=== PATIENT | male | born 1945 | race Caucasian/White ===

== ENCOUNTER 2023-04-29 11:24 | Outpatient (OUT) | payer MEDICARE, SELFPAY ==
[2023-04-29 12:12] LABS: Anion Gap 10.6; BUN Creatinine Ratio 17.9; Calcium 9.7 mg/dL (8.5-10.1); Chloride 105 mmol/L (98-107); Estimated GFR (African America >60 (>=60); Estimated GFR (Non-African Ame 57 (>=60); Glucose 122 mg/dL (74-106); Potassium 4.6 mmol/L (3.5-5.1); Sodium 140 mmol/L (136-145)
[2023-04-29 12:17] LABS: Basophils Percent Auto 0.4 % (0.2-2.0); Eosinophils Absolute Auto 0.1 10^3/uL (0.0-0.7); Eosinophils Percent Auto 1.5 % (0.9-7.0); Hematocrit 45.7 % (42.0-54.0); Hemoglobin 14.8 g/dL (14.0-18.0); Immature Granulocytes Abs Auto 0.01 10^3/uL (0.00-0.03); Immature Granulocytes Pct Auto 0.2 % (0.0-0.5); Lymphocytes Absolute Auto 1.2 10^3/uL (1.2-3.8); Lymphocytes Percent Auto 25.1 % (20.5-60.0); Mean Corpuscular HGB Conc 32.4 g/dL (29.9-35.2); Mean Corpuscular Hemoglobin 31.6 pg (25.9-34.0); Mean Corpuscular Volume 97.4 fL (80.0-94.0); Monocytes Absolute Auto 0.4 10^3/uL (0.3-0.8); Monocytes Percent Auto 7.6 % (1.7-12.0); Neutrophils Percent Auto 65.2 % (43.0-75.0); Platelet Count 135 10^3/uL (150-450); Red Blood Count 4.69 10^6/uL (4.70-6.10); White Blood Count 4.6 10^3/uL (4.0-11.0)
[2023-04-29 12:48] LABS: INR 1.67; Prothrombin Time 17.2 sec (9.0-11.6)
== END 2023-04-29 11:25 ==
LOC: LAB 11:29
PROVIDERS: Nurse Practitioner; PCP Internal Medicine
DX: I25.5 Ischemic cardiomyopathy (principal)
CPT/HCPCS: 36415; 80048; 85025; 85610

== ENCOUNTER 2023-05-14 10:01 | Outpatient (OUT) | payer MEDICARE, SELFPAY ==
--- NOTE | 2023-05-14 10:10 | XR_ITS ---
The [address] [address] Patient Name: GUS DEL CID MRN: [id number] date: 1945 Sex: M Assigned Patient Location: [facility] Current Patient Location: [facility] Accession/Order Number: [id number] Exam Date: 05/14/2023 10:15 Report Date: 05/14/2023 11:01 At the request of: DUNIA GILLILAND Procedure: XR chest 2V EXAM: XR chest 2V HISTORY: Cardiac Pacemaker In Situ Z95.0 COMPARISON: None. TECHNIQUE: PA and lateral views of the chest. FINDINGS: The cardiomediastinal silhouette is normal. Left-sided cardiac pacemaker with atrial and ventricular leads. No focal consolidation is identified. There is no pneumothorax. No pleural effusion is noted. The osseous structures are intact. IMPRESSION: No acute cardiopulmonary process. Electronically authenticated by: LATONIA STANTON Date: 05/14/2023 11:01
== END 2023-05-14 10:02 | disposition home or self-care (01) ==
LOC: RAD 10:04
PROVIDERS: PCP Internal Medicine; Visit Provider Internal Medicine Cardiovascular Disease
DX: Z95.0 Presence of cardiac pacemaker (principal)
CPT/HCPCS: 71046

== ENCOUNTER 2023-07-06 09:01 | Outpatient (OUT) | payer MEDICARE, SELFPAY ==
[2023-07-06 09:31] LABS: Basophils Percent Auto 0.4 % (0.2-2.0); Eosinophils Absolute Auto 0.1 10^3/uL (0.0-0.7); Eosinophils Percent Auto 2.1 % (0.9-7.0); Hematocrit 43.8 % (42.0-54.0); Hemoglobin 14.1 g/dL (14.0-18.0); Immature Granulocytes Abs Auto 0.01 10^3/uL (0.00-0.03); Immature Granulocytes Pct Auto 0.2 % (0.0-0.5); Lymphocytes Absolute Auto 1.3 10^3/uL (1.2-3.8); Lymphocytes Percent Auto 25.3 % (20.5-60.0); Mean Corpuscular HGB Conc 32.2 g/dL (29.9-35.2); Mean Corpuscular Hemoglobin 30.9 pg (25.9-34.0); Mean Corpuscular Volume 96.1 fL (80.0-94.0); Mean Platelet Volume 10.9 fL (9.5-13.5); Monocytes Absolute Auto 0.4 10^3/uL (0.3-0.8); Neutrophils Absolute Auto 3.4 10^3/uL (1.4-6.5); Platelet Count 144 10^3/uL (150-450); Red Blood Count 4.56 10^6/uL (4.70-6.10); Red Cell Distribution Width 13.6 % (11.0-15.0); White Blood Count 5.2 10^3/uL (4.0-11.0)
[2023-07-06 10:07] LABS: Anion Gap 11.4; BUN Creatinine Ratio 18.9; Calcium 10.2 mg/dL (8.5-10.1); Carbon Dioxide 27.1 mmol/L (21.0-32.0); Chloride 102 mmol/L (98-107); Chol HDL Ratio 2.9; Cholesterol 123 mg/dL (<=200); Estimated GFR (African America >60 (>=60); Estimated GFR (Non-African Ame 57 (>=60); Glucose 119 mg/dL (74-106); HDL Cholesterol 42 mg/dL (40-60); LDL Cholesterol Calculated 62.6 mg/dL; Potassium 4.5 mmol/L (3.5-5.1); Sodium 136 mmol/L (136-145); Triglycerides 92 mg/dL (<=150); VLDL CHOLESTEROL 18.4 mg/dL
== END 2023-07-06 09:02 | disposition home or self-care (01) ==
PROVIDERS: PCP Internal Medicine; Visit Provider Internal Medicine Interventional Cardiology
DX: I50.22 Chronic systolic (congestive) heart failure (principal); I25.10 Atherosclerotic heart disease of native coronary artery without angina pectoris
CPT/HCPCS: 36415; 80048; 80061; 85025

== ENCOUNTER 2023-12-14 12:46 | Outpatient (OUT) | payer MEDICARE, SELFPAY ==
--- NOTE | 2023-12-14 13:00 | CA_ITS ---
Patient Name: GUS KUHN MR#: [id number] : 1945 Exam Date: 12/14/2023 Ordering Doctor: NEGAR MEHTA CNP ECHOCARDIOGRAM REPORT PROCEDURE: CA ECHO DOPPLER COMPLETE INDICATIONS: Chronic systolic heart failure, CABGx3, PA, stents, hypertension, diabetes, pacemaker-deactivated COMPARISON: None. DESCRIPTION: COMPLETE ECHOCARDIOGRAM Real-time transthoracic echocardiography with 2D, M-mode, spectral and color flow Doppler performed. QUALITY: Technical quality was good. 72 , 193#, BSA 2.1 m2 LEFT VENTRICLE: Normal chamber size. Thickened septal wall. There is hypokinesis of the basal and mid inferior and inferolateral rome. Systolic function is mildly reduced. LV EF: Estimated left ventricular ejection fraction, (40-45%). DIASTOLIC: Grade III diastolic dysfunction. ATRIAL SEPTUM: Visually appears intact. LEFT ATRIUM: Severe dilatation. RIGHT ATRIUM: Moderate dilatation. RIGHT VENTRICLE: Mild dilatation. Normal right ventricular systolic function. TRICUSPID VALVE: Normal mobility and thickness. No stenosis with mild to moderate regurgitation. Doppler studies reveal mildly (35-45) elevated right sided pressures. RVSP 37 mmHg MITRAL VALVE: Normal mobility and thickness. No evidence of mitral valve stenosis. Mild mitral annular calcification. Mild mitral regurgitation. AORTIC VALVE: Normal trileaflet appearance. No visible sclerosis. Normal leaflet mobility. No evidence of aortic valve stenosis. Trivial aortic regurgitation. AORTIC ROOT: Normal diameter and appearance. PULMONIC VALVE: Normal thickness and mobility. No stenosis. Mild regurgitation. PERICARDIUM: No evidence of pericardial effusion. IVC: Collapses with inspirations. IVC is normal in size. PLEURA: CONCLUSION: 1. Left ventricular systolic function is mildly reduced with segmental wall motion abnormalities. LVEF is 40 to 45%. 2. Mildly dilated right ventricle with normal systolic function. 3. Grade 3 diastolic dysfunction. 4. Moderate to severe biatrial dilatation. 5. Mild mitral regurgitation. 6. Mild to moderate tricuspid regurgitation. 7. Mildly elevated right-sided pressures. Adult Echocardiography Procedure Report Left Ventricle LVEDD (3.7 - 5.6 cm): 5.02 cm LVESD (2.2 - 4.0 cm): 4.10 cm LVIVS thickness (0.6 - 1.2 cm): 1.60 cm LVPW thickness (0.5 - 1.0 cm): 1.00 cm e': 0.09 m/s E - e': 10.30 LVOT Max Gradient: 1.74 mm[Hg] LVOT Area (cm2): 0.66 m/s Peak Velocity (LVOT): 0.66 m/s Mean Velocity (LVOT): 0.44 m/s LVOT Diameter 2.52 cm Left Atrium LA Volume Index (2D A2C): 59.80 ml/m2 Left Atrium Systolic Dimension: 5.47 cm Mitral Valve MV E to A Ratio: 3.01 Mitral Valve A-Wave Peak Velocity: 0.29 m/s Mitral Valve E-Wave Peak Velocity: 0.88 m/s Right Ventricle Aorta AO Root Diam: 3.97 cm Ascending Ao Diam: 3.02 cm Aortic Valve AoV Area (Peak Paxton): 3.23 cm2, 3.23 cm2 AoV Area (VTI): 3.47 cm2, 3.47 cm2 Peak Velocity(Antegrade Flow): 1.02 m/s Peak Gradient(Antegrade Flow): 4.15 mm[Hg] Mean Velocity(Antegrade Flow): 0.67 m/s Mean Gradient(Antegrade Flow): 2.04 mm[Hg] Velocity Time Integral: 25.36 cm Tricuspid Valve Peak Velocity (Regurgitant Flow): 2.91 m/s, 2.71 m/s, 2.85 m/s, 2.88 m/s Pulmonic Valve Mean Gradient: 1.71 mm[Hg] Mean Velocity: 0.60 m/s Peak Velocity: 0.99 m/s, 0.88 m/s Peak Gradient: 3.12 mm[Hg], 3.92 mm[Hg] Right Atrium Right Atrium Systolic Pressure: 55.76 ml, 55.76 ml Dictated by: Yan Montero M.D. on 12/14/2023 at 17:57 Approved by: Yan Montero M.D. on 12/14/2023 at 18:02
== END 2023-12-14 12:47 | disposition home or self-care (01) ==
LOC: CARD 12:47
PROVIDERS: PCP Internal Medicine; Visit Provider Nurse Practitioner Family
DX: I50.22 Chronic systolic (congestive) heart failure (principal)
CPT/HCPCS: 93306; 93356

== ENCOUNTER 2023-12-22 09:13 | Outpatient (OUT) | payer MEDICARE, SELFPAY ==
[2023-12-22 10:12] LABS: Alanine Aminotransferase 16 U/L (16-63); Albumin Globulin Ratio 1.1; Albumin Level 3.5 g/dL (3.4-5.0); Alkaline Phosphatase 38 U/L (46-116); Anion Gap 10.5; Aspartate Amino Transferase 17 U/L (15-37); BUN Creatinine Ratio 20.3; Bilirubin Total 0.6 mg/dL (0.2-1.0); Calcium 9.7 mg/dL (8.5-10.1); Carbon Dioxide 27.5 mmol/L (21.0-32.0); Chloride 107 mmol/L (98-107); Chol HDL Ratio 2.8; Cholesterol 130 mg/dL (<=200); Estimated GFR (African America >60 (>=60); Estimated GFR (Non-African Ame 54 (>=60); Globulin 3.3 g/dL; Glucose 123 mg/dL (74-106); HDL Cholesterol 46 mg/dL (40-60); LDL Cholesterol Calculated 66.4 mg/dL; Sodium 140 mmol/L (136-145); Total Protein 6.8 g/dL (6.4-8.2); Triglycerides 88 mg/dL (<=150); VLDL CHOLESTEROL 17.6 mg/dL
[2023-12-22 10:47] LABS: Basophils Percent Auto 0.6 % (0.2-2.0); Eosinophils Absolute Auto 0.1 10^3/uL (0.0-0.7); Eosinophils Percent Auto 1.3 % (0.9-7.0); Hematocrit 47.7 % (42.0-54.0); Hemoglobin 15.2 g/dL (14.0-18.0); Immature Granulocytes Abs Auto 0.01 10^3/uL (0.00-0.03); Immature Granulocytes Pct Auto 0.2 % (0.0-0.5); Lymphocytes Absolute Auto 1.4 10^3/uL (1.2-3.8); Mean Corpuscular HGB Conc 31.9 g/dL (29.9-35.2); Mean Corpuscular Hemoglobin 30.8 pg (25.9-34.0); Mean Corpuscular Volume 96.8 fL (80.0-94.0); Mean Platelet Volume 11.8 fL (9.5-13.5); Monocytes Absolute Auto 0.4 10^3/uL (0.3-0.8); Monocytes Percent Auto 7.7 % (1.7-12.0); Neutrophils Absolute Auto 3.4 10^3/uL (1.4-6.5); Neutrophils Percent Auto 63.2 % (43.0-75.0); Platelet Count 130 10^3/uL (150-450); Red Blood Count 4.93 10^6/uL (4.70-6.10); Red Cell Distribution Width 14.2 % (11.0-15.0); White Blood Count 5.3 10^3/uL (4.0-11.0)
== END 2023-12-22 09:14 | disposition home or self-care (01) ==
LOC: LAB 09:13
PROVIDERS: PCP Internal Medicine; Visit Provider Internal Medicine Interventional Cardiology
DX: I25.10 Atherosclerotic heart disease of native coronary artery without angina pectoris (principal); I50.22 Chronic systolic (congestive) heart failure
CPT/HCPCS: 36415; 80053; 80061; 85025

== ENCOUNTER 2024-12-20 11:51 | Outpatient (OUT) | payer MEDICARE, SELFPAY ==
--- OUTSIDE RECORDS SUMMARY | 2024-12-20 11:56 | XMS_ITS | CCD ---
Author Organization [facility] Team Providers Care Green Chain Operator Name Role Phone Filiberto De Luna IP/MOSAIC TECHNICIAN-C Attending Obdulio Yao Primary Care Unavailable OBDULIO WAN Primary Care Unavailable NEGAR MEHTA Admitting Unavailable NEGAR MEHTA Attending Unavailable OBDULIO WAN Referring Unavailable SAVAGE, DR KEBEDE Admitting Unavailable SAVAGE, DR KEBEDE Attending Unavailable SAVAGE, DR KEBEDE Primary Care Unavailable SAVAGE, DR KEBEDE Consulting Unavailable DARINEBBESS, DR RAJEEV Mathias Consulting Unavailable MOUKARBEL, DR CHERY Admitting Unavailable MOUKARBEL, DR CHERY Attending Unavailable WAN, DR KEBEDE Primary Care Unavailable MOUKARBEL, DR CHERY Consulting Unavailable ABBAS, DR SANCHEZ Admitting Unavailable ABBAS, DR SANCHEZ Attending Unavailable WAN, DR KEBEDE Primary Care Unavailable ABBAS, DR SANCHEZ Consulting Unavailable ZIEBER, DR RAJEEV Mathias Consulting Unavailable ABBAS, DR SANCHEZ Admitting Unavailable ABBAS, DR SANCHEZ Attending Unavailable SAVAGE, DR KEBEDE Primary Care Unavailable ABBAS, DR SANCHEZ Consulting Unavailable TIMMIS, DR RICHARDS Admitting Unavailable TIMMIS, DR RICHARDS Attending Unavailable WAN, DR KEBEDE Primary Care Unavailable TIMMIS, DR RICHARDS Consulting Unavailable ZISILVANO, DR RAJEEV Mathias Consulting Unavailable Savage HUGHES MD, Daniel Primary Care Provider [phone] BALAJI PETER Referring Unavailable EZEQUIEL GILLILAND Attending Unavailable OBDULIO WAN II Primary Care Unavailable BALAJI PETER Referring Unavailable OBDULIO WAN II Primary Care Unavailable BALAJI PETER Attending Unavailable EZEQUIEL GILLILAND Attending Unavailable EZEQUIEL GILLILAND Referring Unavailable OBDULIO WAN II Primary Care Unavailable BALAJI PETER Referring Unavailable EZEQUIEL GILLILAND Attending Unavailable OBDULIO WAN II Primary Care Unavailable Unavailable Primary Care Provider Unavailabl e Elliot MACKEY, Filippo Unavailable [phone] ELLIOT, FILIPPO Attending Unavailable ELLIOT, FILIPPO Referring Unavailable ELLIOT, FILIPPO Referring Unavailable ELLIOT, FILIPPO Referring Unavailable ELLIOT, FILIPPO Referring Unavailable ELLIOT, FILIPPO Referring Unavailable ELLIOT, FILIPPO Referring Unavailable Obdulio Wan MD Primary Care Provider Obdulio Wan MD Unavailable [id number] [phone] Obdulio Wan MD Primary Care Provider [phone] JULIAN, MOHAMED F Attending Unavailable WAN, OBDULIO B Referring Unavailable WAN, OBDULIO B Primary Care Unavailable LAURA SALDANA T Attending Unavailable WAN, OBDULIO B Referring Unavailable WAN, OBDULIO B Primary Care Unavailable MILLER, RAHAF N Admitting Unavailable MILLER, RAHAF N Attending Unavailable ABELINO, KELIMAD M Referring Unavailable WAN, OBDULIO B Primary Care Unavailable BETH KOWALSKI Consulting Unavailable WAN, OBDULIO B Referring Unavailable WAN, OBDULIO B Primary Care Unavailable JULIAN, MOHAMED F Referring Unavailable WAN, OBDULIO B Primary Care Unavailable JULIAN, MOHAMED F Admitting Unavailable JULIAN, MOHAMED F Attending Unavailable JULIAN, MOHAMED F Referring Unavailable WAN, OBDULIO B Primary Care Unavailable WAN, OBDULIO B Attending Unavailable FLAKITO SANTOS Attending Unavailable SAVAGE OBDULIO B Attending Unavailable Wednesday FOOD SUPERVISOR, Mehreen Unavailable LAURA SALDANA Referring Unavailable WAN, OBDULIO B Primary Care Unavailable LAURA SALDANA Referring Unavailable WAN, OBDULIO B Primary Care Unavailable WAN, OBDULIO B Primary Care Unavailable OBDULIO CARLIN Attending Unavailable OBDULIO CARLIN Attending Unavailable OBDULIO CARLIN Referring Unavailable WAN, OBDULIO B Primary Care Unavailable ABELINO, KELIMAD Attending Unavailable ABELINO, AHMAD Referring Unavailable WAN, OBDULIO B Primary Care Unavailable JULIAN, MOHAMED F Attending Unavailable JULIAN, MOHAMED F Referring Unavailable WNA, OBDULIO B Primary Care Unavailable JULIAN, MOHAMED F Attending Unavailable JULIAN, MOHAMED F Referring Unavailable WAN, OBDULIO B Primary Care Unavailable WAN, OBDULIO B Primary Care Unavailable OBDULIO CARLIN Attending Unavailable WAN, OBDULIO B Primary Care Unavailable DANICA QUACH Attending Unavailable MOI PINEDA JR Attending Unavailable QUACH, DANICA Referring Unavailable WAN, OBDULIO B Primary Care Unavailable EDWIN JR, MOI K Attending Unavailable EDWIN JR, MOI K Referring Unavailable WAN, OBDULIO B Primary Care Unavailable EDWIN JR, MOI K Attending Unavailable EDWIN JR, MOI K Referring Unavailable WAN, OBDULIO B Primary Care Unavailable EDWIN JR, MOI K Attending Unavailable WAN, OBDULIO B Referring Unavailable WAN, OBDULIO B Primary Care Unavailable EDWIN JR, MOI K Referring Unavailable WAN, OBDULIO B Primary Care Unavailable EDWIN , MOI K. Admitting Unavailable MOI PINEDA JR. Attending Unavailable MOI PINEDA JR. Referring Unavailable WAN, OBDULIO B Primary Care Unavailable EDWIN JRMOI K. Attending Unavailable WAN, OBDULIO B Referring Unavailable WAN, OBDULIO B Primary Care Unavailable MIRI MONTERO Attending Unavailable EZEQUIEL GILLILAND Referring Unavailable MIRI MONTERO Attending Unavailable EZEQUIEL GILLILAND Referring Unavailable MIRI MONTERO Attending Unavailable Allergies Allergy Classification Reported Allergen(s) Allergy Type Date of Onset Reaction(s) Facility (4 sources) Dextroamphetamine Drug Allergy 09-25-[address] [facility] (1 source) Morphine Drug Allergy 07-05-[address] [facility] (1 source) Simvastatin Drug Allergy 09-25-[address] [facility] (1 source) black walnut pollen extract Drug Allergy 12-14-19 22 [facility] (10 sources) Morphine; Translations: [MORPHINE] Drug Allergy 07-05-20 20 [facility] (15 sources) atorvastatin; Translations: [ATORVASTATIN] Drug Allergy 11-02-20 14 Pain, Other, Unknown [facility] (20 sources) Morphine Drug Allergy 07-05-20 20 Unknown, Other (See Comments) [facility] (17 sources) atorvastatin Drug Allergy 11-02-20 14 Other: See Comments, Unknown, Other (See Comments) [facility] (10 sources) Dextroamphetamine; Translations: [DEXTROAMPHETAMINE] Drug Allergy 09-25-20 09 Unknown [facility] (14 sources) Simvastatin; Translations: [SIMVASTATIN] Drug Allergy 11-02-20 14 Other (See Comments) [facility] (4 sources) Simvastatin Propensity to adverse reactions 11-02-20 14 Other [facility] (1 source) Spironolactone; Translations: [SPIRONOLACTONE] Drug Allergy 05-11-[address] [facility] Medications Current Medications Medication Drug Class(es) Dates Sig (Normalized) Sig (Original) acetaminophen 500 mg oral tablet (6 sources) take 1 tablet by mouth every six hours as needed acetaminophen (Tylenol) 500 MG tablet Take 500 mg by mouth every 6 (six) hours if needed. Active amiodarone hydrochloride 200 mg oral tablet (3 sources) Antiarrhythmic End: 05-24-2023 take 1 tablet by mouth in the morning amiodarone (PACERONE) 200 mg tablet Take 1 tablet (200 mg total) by mouth in the morning. 0 Active Comment on above: Take 200 mg by mouth . atenolol 25 mg oral tablet (5 sources) beta-Adrenergic Patti Start: 04-14-2019 take 1 tablet by mouth in the morning atenolol (TENORMIN) 25 mg tablet Take 1 tablet (25 mg total) by mouth in the morning. 3 04/14/2019 Active End: 05-24-2023 take 1 tablet by mouth in the morning atenolol (TENORMIN) 50 mg tablet Take 1 tablet (50 mg total) by mouth in the morning. 0 Active Comment on above: Take 50 mg by mouth. clobetasol propionate 0.5 mg/ml topical solution (6 sources) Corticosteroid Start: 02-24-2024 clobetasol (Temovate) 0.05 % external solution Indications: Psoriasis vulgaris (CMS/HCC) Apply to scalp Apply to affected areas, up to twice a day when flared, do not use one the face, groin, or underarms, 30 day supply 50 mL 02/24/2024 Active Start: 02-24-2024 clobetasol (Te movate) 0.05 % cream Indications: Psoriasis vulgaris (CMS/HCC) Apply to affected areas, up to twice a day when flared, do not use one the face, groin, or underarms, 30 day supply 60 g 02/24/2024 Active dapagliflozin 10 mg oral tablet (10 sources) Sodium-Glucose Cotransporter 2 Inhibitor Start: 12-20-2023 End: 12-19-2024 dapagliflozin propanediol (FARXIGA) 10 mg tablet Indications: chronic heart failure , type 2 diabetes mellitus Take 1 tablet (10 mg total) by mouth in the morning. Indications: chronic heart failure, type 2 diabetes mellitus. Patient yeast inf. Cleared up. 12/20/2023 12/19/2024 Active digoxin 0.125 mg oral tablet (3 sources) Cardiac Glycoside End: 05-24-2023 take 1 tablet by mouth in the morning digoxin (LANOXIN) 125 mcg tablet Take 1 tablet (125 mcg total) by mouth in the morning. 0 Active Comment on above: Take 125 mcg by mout h. docusate sodium 100 mg oral capsule (2 sources) take 1 capsule by mouth in the morning, then take 1 capsule by mouth at bedtime docusate sodium (COLACE) 100 mg capsule Take 1 capsule (100 mg total) by mouth in the morning and 1 capsule (100 mg total) before bedtime. 0 Active eplerenone 25 mg oral tablet (10 sources) Aldosterone Antagonist Start: 05-11-2024 take 1 tablet by mouth in the morning eplerenone (Inspra) 25 MG tablet Take 25 mg by mouth in the morning. 05/11/2024 Active ezetimibe 10 mg oral tablet (3 sources) Dietary Cholesterol Absorption Inhibitor End: 05-24-2023 take 1 tablet by mouth in the morning ezetimibe (ZETIA) 10 mg tablet Take 1 tablet (10 mg total) by mouth in the morning. 0 Active Comment on above: Take 10 mg by mouth. furosemide 20 mg oral tablet (3 sources) Loop Diuretic End: 05-24-2023 take 2 tablets by mouth once daily furosemide (LASIX) 20 mg tablet Take 2 tablets (40 mg total) by mouth daily. 0 Active Comment on above: Take 40 mg by mouth. lisinopril 5 mg oral tablet (3 sources) Angiotensin Converting Enzyme Inhibitor End: 05-24-2023 take 1 tablet by mouth in the morning lisinopriL (PRINIVIL,ZESTRIL) 5 mg tablet Take 1 tablet (5 mg total) by mouth in the morning. 0 Active Comment on above: Take 5 mg by mouth. metOLazone 2.5 mg oral tablet (3 sources) Thiazide-like Diuretic End: 05-24-2023 metOLazone (ZAROXOLYN) 2.5 mg tablet Take 1 tablet (2.5 mg total) by mouth See Admin Instructions. 1 tab oral tid 30 min before lasix 0 Active Comment on above: Take 2.5 mg by mouth . Multiple Vitamin (multivitamin) capsule (4 sources) take 1 capsule by mouth in the morning Multiple Vitamin (multivitamin) capsule Take 1 capsule by mouth in the morning. Active take 1 capsule by mouth in the m orning Multiple Vitamin (multivitamin) capsule Take 1 capsule by mouth in the morning. 0 Active multivitamin capsule (2 sources) take 1 capsule by mouth in the morning multivitamin capsule Take 1 capsule by mouth in the morning. 0 Active omeprazole 40 mg delayed release oral capsule (20 sources) Proton Pump Inhibitor take 1 capsule by mouth in the morning omeprazole (PriLOSEC) 40 mg capsule Indications: gastroesophageal reflux disease Take 1 capsule (40 mg total) by mouth in the morning. Indications: gastroesophageal reflux disease. Active Comment on above: Take 1 capsule by mo [facility] once daily. perflutren lipid microspheres 1.3 mL in NaCl (PF) 0.9% 10 mL injection (DEFINITY) (6 sources) Start: 05-24-20 End: 08-22-20 24 perflutren lipid microspheres 1.3 mL in NaCl (PF) 0.9% 10 mL injection (DEFINITY) 125 ml sodium chloride 9 mg/ml prefilled syringe (6 sources) Start: 05-24-20 End: 08-22-20 24 sodium chloride 0.9 % (flush) 10 mL (BD POSIFLUSH) tamsulosin hydrochloride 0.4 mg oral capsule (1 source) alpha-Adrenergic Patti Start: 11-23-19 25 take 1 capsule by mouth once daily tamsulosin (FLOMAX) 0.4 mg capsule Take 1 capsule (0.4 mg total) by mouth nightly. 90 capsule 3 11/23/2024 Active warfarin sodium 3 mg oral tablet (20 sources) Vitamin K Antagonist Start: 10-01-20 22 warfarin (Coumadin) 3 MG tablet Take 3 mg by mouth. 1 tablet Tu, Fri. 1/2 tab other 5 days 10/01/2022 Active Start: 05-07-2018 take 1 tablet by tamy once daily in the morning warfarin (COUMADIN) 3 mg tablet Take 1 tablet (3 mg total) by mouth every morning. 05/07/2018 Active Comment on above: TAKE 1 TO 1 & 1/2 (O NE TO ONE & ONE-HALF) TABLETS BY MOUTH ONCE DAILY DIRECTED Completed/Discontinued Medications Medication Drug Class(es) Dates Sig (Normalized) Sig (Original) amLODIPine 5 mg oral tablet (19 sources) Dihydropyridine Calcium Channel Patti Start: 11-13-2022 take 1 tablet by mouth once daily in the morning amLODIPine (NORVASC) 5 mg tablet Take 5 mg by mouth every morning. 0 05/16/2023 Active Comment on above: Take 5 mg by mouth e very morning. clopidogrel 75 mg oral tablet (20 sources) [id number] Platelet Inhibitor Start: 11-13-2022 take 1 tablet by mouth once daily in the morning clopidogrel (PLAVIX) 75 mg tablet Take 75 mg by mouth every morning. 0 05/15/2023 Active Comment on above: Take 75 mg by mouth every morning. doxycycline monohydrate 100 mg oral capsule (8 sources) Tetracycline-class Drug Start: 05-14-2023 take 1 capsule by mouth twice daily at bedtime doxycycline monohydrate (MONODOX) 100 mg capsule TAKE 1 CAPSULE BY MOUTH TWICE DAILY FOR 14 DAYS (MORNING AND BEDTIME). TAKE WITH AT LEAST 8OZ OF WATER. DO NOT LIE DOWN FOR 30 MINUTES AFTER. 0 05/14/2023 Active Comment on above: TAKE 1 CAPSULE BY [facility] TWICE DAILY FOR 14 DAYS (MORNING AND BEDTIME). TAKE WITH AT LEAST 8OZ OF WATER. DO NOT LIE DOWN FOR 30 MINUTES AFTER. empagliflozin 10 mg oral tablet (9 sources) Sodium-Glucose Cotransporter 2 Inhibitor Start: 05-14-2023 JARDIANCE 10 mg tablet 24 hr metoprolol succinate 100 mg extended release oral tablet (20 sources) beta-Adrenergic Patti Start: 04-26-2023 take 100 mg by mouth twice daily metoprolol succinate ER (TOPROL XL) 100 mg Take 100 mg by mouth twice daily. 0 04/26/2023 Active Start: 09-13-2020 take 1.5 tablets by mouth every twenty-four hours at bedtime metoprolol succinate XL (TOPROL XL) 100 mg 24 hr tablet Take 1.5 tablets (150 mg total) by mouth in the morning and at bedtime. heart 09/13/2020 Active Start: 09-13-2020 take 1.5 tablets by mouth every twenty-four hours in the morning metoprolol succinate XL (TOPROL-XL) 50 mg 24 hr tablet Take 1.5 tablets (75 mg total) by mouth in the morning. 0 09/13/2020 Active Comment on above: Take 100 mg by mouth twice daily. potassium chloride 20 meq extended release oral tablet (6 sources) End: 4 take 1 tablet by mouth in the morning potassium chloride CR (K-Tab) 20 MEQ ER tablet Take 20 mEq by mouth in the morning. 07/06/2024 Discontinued Comment on above: Take 1 tablet by tamy th once daily. rosuvastatin calcium 5 mg oral tablet (20 sources) HMG-CoA Reductase Inhibitor Start: 2 take 1 tablet by mouth once daily at bedtime rosuvastatin (CRESTOR) 5 mg tablet Take 5 mg by mouth daily at bedtime. 0 02/20/2023 Active Comment on above: Take 5 mg by mouth d aily at bedtime. sacubitril 97 mg / valsartan 103 mg oral tablet (20 sources) Angiotensin 2 Receptor Patti Start: 1 take 1 tablet by mouth twice daily sacubitril-valsartan (ENTRESTO) 97-103 mg tablet Take 1 tablet twice a day by oral route for 90 days. 0 08/18/2021 Active take 1 tablet by tamy th in the morning sacubitriL-valsartan (ENTRESTO) 97-103 m g tablet Indications: chronic heart failure Take 1 tablet by mouth in the morning and 1 tablet before bedtime. Indications: chronic heart failure. Active take 1 tablet by tamy th in the morning sacubitriL-valsartan (ENTRESTO) 24-26 mg tablet Take 1 tablet by mouth in the morning and 1 tablet before bedtime. 0 Active Comment on above: Take 1 tablet twice a day by oral route for 90 days. spironolactone 25 mg oral tablet (12 sources) Aldosterone Antagonist Start: 05-16-20 23 End: 07-06-20 24 take 1 tablet by mouth once daily in the morning spironolactone (ALDACTONE) 25 mg tablet Take 25 mg by mouth every morning. 0 05/16/2023 Active Comment on above: Take 25 mg by mouth every morning. Problems Active Problems Problem Classification Problem Date Documented Date Episodic/Chronic Abdominal pain (1 source) Flank pain Onset: 08-31-2024 Episodic Acute myocardial infarction (2 sources) Myocardial infarction; Translations: [ST elevation (STEMI) myocardial infarction involving left anterior descending coronary artery] Onset: 05-24-2023 05-24-2023 Chronic Aortic; peripheral; and visceral artery aneurysms (20 sources) Abdominal aortic aneurysm without rupture; Translations: [Abdominal aortic aneurysm (AAA) without rupture, unspecified part ([facility])] Onset: 12-14-2019 11-25-2023 Chronic Cardiac dysrhythmias (18 sources) Atrial fibrillation with rapid ventricular response; Translations: [Unspecified atrial fibrillation] Onset: 06-10-2020 Resolved: 05-08-2023 05-24-2023 Chronic Chronic obstructive pulmonary disease and bronchiectasis (2 sources) Pulmonary emphysema; Translations: [Emphysema, unspecified] 07-06-2024 Chronic Coagulation and hemorrhagic disorders (2 sources) Thrombocytopenic disorder; Translations: [Thrombocytopenia, unspecified] 07-06-2024 Chronic Complication of device; implant or graft (14 sources) 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; Translations: [Atherosclerosis of unspecified type of bypass graft(s) of the extremities with intermittent claudication, left leg] Onset: 05-11-2024 05-11-2024 Chronic Conduction disorders (12 sources) Conduction disorder of the heart; Translations: [Conduction disorder, unspecified] Onset: 03-10-2012 Resolved: 05-08-2023 05-08-2023 Chronic Congestive heart failure; nonhypertensive (16 sources) Chronic systolic (congestive) heart failure; Translations: [Biventricular congestive heart failure] Onset: 01-11-2021 Chronic Coronary atherosclerosis and other heart disease (19 sources) Ischemic cardiomyopathy; Translations: [Stable angina] Onset: 06-24-2020 Chronic Coronary atherosclerosis and other heart disease (4 sources) Presence of aortocoronary bypass graft; Translations: [Presence of coronary angioplasty implant and graft] Onset: 10-30-2024 Episodic Diabetes mellitus with complications (4 sources) Type 2 diabetes mellitus; Translations: [Type 2 diabetes mellitus with diabetic chronic kidney disease] Onset: 07-06-2024 07-06-2024 Chronic Diabetes mellitus without complication (9 sources) Type 2 diabetes mellitus without complication; Translations: [Type 2 diabetes mellitus without complications] Onset: 05-08-2023 Resolved: 07-06-2024 05-24-2023 Chronic Esophageal disorders (4 sources) Gastroesophageal reflux disease without esophagitis; Translations: [Gastro-esophageal reflux disease without esophagitis] Onset: 05-08-2023 05-08-2023 Chronic Essential hypertension (6 sources) Essential hypertension; Translations: [Essential (primary) hypertension] Onset: 09-07-2012 05-08-2023 Chronic Genitourinary symptoms and ill-defined conditions (20 sources) Disorder of the urinary system; Translations: [Disorder of urinary system, unspecified] Onset: 08-31-2024 09-14-2024 Episodic Hyperplasia of prostate (12 sources) Weak urinary stream due to benign prostatic hypertrophy; Translations: [Benign prostatic hyperplasia with lower urinary tract symptoms] Onset: 09-14-2024 09-14-2024 Chronic Inflammatory conditions of male genital organs (1 source) Balanitis; Translations: [Balanitis] Onset: 05-08-2024 Chronic Intestinal infection (1 source) Campylobacter enteritis; Translations: [Campylobacter enteritis] Onset: 05-05-2024 Episodic Other aftercare (1 source) Encounter for therapeutic drug level monitoring; Translations: [Encounter for therapeutic drug level monitoring] Onset: 05-26-2024 Episodic Other male genital disorders (6 sources) Mass of epididymis; Translations: [Other specified disorders of the male genital organs] Onset: 09-28-2024 09-28-2024 Episodic Other male genital disorders (1 source) Other specified disorders of the male genital organs; Translations: [Other specified disorders of the male genital organs] Onset: 09-28-2024 Episodic Other screening for suspected conditions (not mental disorders or infectious disease) (2 sources) Abnormal result of other cardiovascular function study; Translations: [Abnormal result of other cardiovascular function study] Onset: 10-30-2024 Episodic Other upper respiratory disease (4 sources) Other specified disorders of nose and nasal sinuses; Translations: [OTH SPEC D/O NOSE NASAL SINUSES] Onset: 02-18-2023 Episodic Other upper respiratory infections (1 source) Chronic maxillary sinusitis; Translations: [CHRONIC MAXILLARY SINUSITIS] Onset: 02-27-2023 Chronic Peripheral and visceral atherosclerosis (12 sources) Peripheral vascular disease, unspecified; Translations: [Peripheral vascular disease, unspecified] Onset: 09-07-2012 Chronic Residual codes; unclassified (2 sources) Other specified postprocedural states; Translations: [Other specified postprocedural states] Onset: 10-30-2024 Episodic Unclassified (3 sources) ABDOMINAL AA W/O RUPTURE UNSPCIFIED; Translations: [ABDOMINAL AA W/O RUPTURE UNSPCIFIED] Onset: 10-31-2022 Unclassified (3 sources) Infrarenal abdominal aortic aneurysm, without rupture; Translations: [Infrarenal abdominal aortic aneurysm, without rupture] Onset: 05-11-2024 Unclassified (1 source) Post-op Peripheral Arterial Bypass Onset: 05-11-2024 Unclassified (1 source) Bilateral carotid artery stenosis Onset: 05-11-2024 Unclassified (1 source) Difficulty Urinating Onset: 08-31-2024 Unclassified (1 source) Testicle Pain Onset: 08-31-2024 Unclassified (1 source) urinary frequency, pain with urination, blood in urine, flank pain, testicular pain Onset: 08-31-2024 Unclassified (1 source) Genital Itching Onset: 05-08-2024 Unclassified (2 sources) Other persistent atrial fibrillation; Translations: [Other persistent atrial fibrillation] Onset: 04-26-2023 Urinary tract infections (3 sources) Urinary tract infectious disease; Translations: [Urinary tract infection, site not specified] Onset: 08-31-2024 09-14-2024 Episodic Past or Other Problems Problem Classification Problem Date Documented Da te Episodic/Chronic Abdominal hernia (4 sources) Diaphragmatic hernia; Translations: [Diaphragmatic hernia without obstruction or gangrene] Onset: 3 Resolved: 3 05-08-2023 Episodic Disorders of lipid metabolism (4 sources) Hypercholesterolemia; Translations: [Pure hypercholesterolemia, unspecified] Onset: 3 Resolved: 3 05-08-2023 Chronic Gastrointestinal hemorrhage (10 sources) Gastrointestinal hemorrhage, unspecified; Translations: [Gastrointestinal hemorrhage] Onset: 4 05-05-2024 Episodic Mood disorders (7 sources) Mood disorders Onset: 4 06-01-2024 Nonspecific chest pain (4 sources) Chest pain; Translations: [Chest pain, unspecified] Onset: 3 Resolved: 3 05-08-2023 Episodic Other circulatory disease (4 sources) History of arterial bypass of lower limb artery; Translations: [Presence of other vascular implants and grafts] Onset: 3 Resolved: 3 05-08-2023 Chronic Other circulatory disease (1 source) Other specified symptoms and signs involving the circulatory and respiratory systems; Translations: [Other specified symptoms and signs involving the circulatory and respiratory systems] Onset: 4 Episodic Other connective tissue disease (4 sources) Pain in right hand; Translations: [PAIN IN RIGHT HAND] Onset: 2 Episodic Other gastrointestinal disorders (4 sources) Esophageal dysphagia; Translations: [Other dysphagia] Onset: 3 05-08-2023 Episodic Other gastrointestinal disorders (2 sources) Diarrhea Onset: 4 Episodic Other inflammatory condition of skin (4 sources) Psoriasis vulgaris; Translations: [Psoriasis vulgaris] Onset: 3 Resolved: 3 05-08-2023 Chronic Other lower respiratory disease (4 sources) Dyspnea; Translations: [Dyspnea, unspecified] Onset: 0 Resolved: 3 05-08-2023 Episodic Other male genital disorders (4 sources) Male erectile dysfunction, unspecified; Translations: [Impotence of organic origin] Onset: 3 Resolved: 3 05-08-2023 Chronic Other nervous system disorders (4 sources) Notalgia paresthetica; Translations: [Paresthesia of skin] Onset: 3 Resolved: 3 05-08-2023 Episodic Other non-epithelial cancer of skin (4 sources) Squamous cell carcinoma of head and neck; Translations: [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] Onset: 3 05-08-2023 Episodic Other upper respiratory disease (4 sources) Nasal discharge; Translations: [Other specified disorders of nose and nasal sinuses] Onset: 3 05-08-2023 Episodic Residual codes; unclassified (4 sources) Edema; Translations: [Edema, unspecified] Onset: 3 05-08-2023 Episodic Residual codes; unclassified (4 sources) Edema of lower extremity; Translations: [Localized edema] Onset: 0 Resolved: 3 05-08-2023 Episodic Residual codes; unclassified (4 sources) History of repair of aneurysm of abdominal aorta; Translations: [Other specified postprocedural states] Onset: 4 07-06-2024 Episodic Respiratory failure; insufficiency; arrest (adult) (4 sources) Acute respiratory distress syndrome; Translations: [Acute respiratory distress syndrome] Onset: 3 05-08-2023 Episodic Unclassified (1 source) ABDOMINAL AA W/O RUPTURE UNSPCIFIED; Translations: [ABDOMINAL AA W/O RUPTURE UNSPCIFIED] Onset: 2 Results Test Name Value Interpretation Reference Range Facility Anticoagulation - Warfarin [facility] 12-05-2024 Anticoagulation - Warfarin Visit [id number] Gus Del Cid 1945 [facility] Provider Department [place] 12/05/2024 TANJA SANTOS [facility] No family history on file Normal [facility] Telephoneon 11-17-2024 Telephone [id number] Hussain Del Cid R 1945 [facility] Provider Department [place] 11/17/2024 RA VALADEZ [facility] No family history on file [facility] Anticoagulation - Warfarin [facility] 10-31-2024 Anticoagulation - Warfarin Visit [id number] Gus Del Cid 1945 [facility] Provider Department [place] 10/31/2024 TANJA SANTOS [facility] No family history on file Normal [facility] Office Visiton 10-30-2024 Follow-up visit [id number] Hussain Del Cid R 1945 [facility] Provider Department [place] 10/30/2024 MIRI RESTREPO [facility]ia [facility] No family history on file Level of Service:30604 [place] OFFICE/OUTPATIENT ESTABLISHED MOD MDM 30 MIN [facility] Anticoagulation - Warfarin [facility] 10-16-2024 Anticoagulation - Warfarin Visit [id number] Ortega 1945 Date Provider Department Center 10/16/2024 11913-GIEPTANJA [place] BRIAN [facility] No family history on file Normal [facility] US SCROTUM WITH DUPLEXon US SCROTUM WITH DUPLEX US SCROTUM WITH DUPLEX CLINICAL INFORMATION: Epididymal mass. TECHNIQUE: Real-time sonographic evaluation of the scrotum and testes was performed with valera scale and color flow imaging. Real time valera scale, color flow imaging and duplex spectral Doppler waveform analysis evaluation was performed of the major arterial inflow and venous outflow structures of the testicles with arterial and venous spectral waveforms obtained and reviewed in view of the clinical history of Epididymal mass . Duplex spectral Doppler document arterial and venous spectral waveforms documented within the major arterial inflow and venous outflow of both testicles. Arterial and venous Doppler duplex spectral waveforms were evaluated. COMPARISON: Scrotal ultrasound 08/31/2024 FINDINGS: Right testis measures 2.9 x 1.8 x 2.1 cm. Left testis measures 2.8 x 2.8 x 1.8 cm. Unremarkable testicular parenchymal echotexture. No solid intratesticular mass identified. Right extratesticular heterogeneous epididymal mass is decreased in size measuring 2.1 x 1.7 x 1.4 cm compared to 2.4 x 2.1 x 1.7 cm previously. Hyperemia is significantly improved. The arterial waveforms are within normal limits. Venous waveforms are not confidently demonstrated, likely due to technical limitations. IMPRESSION: * Decrease in size of heterogeneous right extratesticular mass involving the tail of the epididymis measuring up to 2.1 cm compared to 2.4 cm previously. Decrease in size and hyperemia favors improving epididymitis. Neoplasm not entirely excluded. Follow-up surveillance ultrasound recommended in one month. Finalized by Shaan Katz MD on 10/03/2024 1:36 PM Normal [facility] 29on 10-02-2024 29 Addended by: RA WADSWORTH on: 10/03/2024 09:02 AM Modules accepted: Orders Normal [facility] Anticoagulation - Warfarin V [facility] 10-02-2024 Anticoagulation - Warfarin Visit [id number] Gus Del Cid 1945 Date Provider Department Center 10/02/2024 [id number] CALDERÓN [facility]ANN[facility]AG [facility] No family history on file Normal [facility] CT UROGRAMon 09-18-[address] UROGRAM HISTORY: Gross hematuria for malignancy. COMPARISONS: 08/31/2024 and 06/28/2024 CTs. TECHNIQUE: CT of the abdomen and pelvis (CT urogram) was performed prior to and following the uneventful ministration of 100 cc Omnipaque 350 nonionic intravenous contrast utilizing thin section axial imaging with multiphasic contrast injection. Coronal and sagittal reformatted images were generated. Volume rendered 3 -D Maximum intensity projection reconstructions constructed under concurrent physician supervision on a independent workstation and reviewed for purposes of evaluation of the urinary tract and collecting systems. Automatic exposure control (AEC) was utilized. FINDINGS: Right kidney and ureter: There is one nonobstructive 2 to 3 mm calculus in the upper pole the right kidney. Right lower pole 8 and 5 mm hyperdense cyst with attenuation of 70, follow-up not required. Other renal lesions versus follow-up. Lateral right interpolar 3 mm diverticulum series 1024 image 33, possibly sequelae of past injury. No filling defects suspicious for malignancy. There is no evidence of intraureteral filling defect. Left kidney and ureter: No suspicious filling defects. Left upper pole 3 mm calyceal diverticulum. There is no evidence of intraureteral filling defect. Vascular: At least mild stenosis origin right renal artery secondary to calcified plaque. Left renal origin but occludes seen secondary to streak artifact. No cephalad renal artery. Aortobiiliac graft with aneurysm sac measuring up to 4.7 cm at the level of the bifurcation. No evidence of endograft leaks displayed Aneurysm sac extends along right common iliac measures up to 3.1 cm. Aneurysm sac measurements unchanged from 08/31/2024. Left femoral artery dilatation up to 1.6 cm and thrombosis with adjacent soft tissue thickening, likely postoperative change Bladder: Bladder appears well-opacified and there is no evidence of wall irregularity or bladder mass. Other: Hiatal hernia. The liver is unremarkable. 1 apparent punctate gallbladder calculus, as seen on the recent CT. The spleen, and adrenal glands have an unremarkable CT appearance. Pancreas unremarkable. Colonic diverticulosis. Small and large bowel otherwise unremarkable. There is no evidence of intra-abdominal mass, adenopathy or free fluid. Visualized lymph nodes are not enlarged by size criteria. Thoracolumbar degenerative changes worst at the L4-L5 level with severe endplate degenerative changes and facet arthropathy leading to at least mild central canal narrowing. IMPRESSION: * Several calyceal diverticula which could be suggestive of past injury/infection. * No filling defects suspicious for malignancy. * Left femoral artery small pseudoaneurysm, thrombosis, and adjacent soft tissue thickening likely sequelae of catheterization. * Stable aortic aneurysm status post aortoiliac endograft placement. Approved by Resident Jamin Marin MD on 09/18/2024 2:11 PM I, You Gonzales MD have personally reviewed the image(s) and agree with and/or edited the report Finalized by You Gonzales MD on 09/18/2024 2:58 PM Normal [facility] Anticoagulation - Warfarin [facility] 09-11-2024 Anticoagulation - Warfarin Visit [id number] Gus Del Cid 1945 M Date Provider Department [place] 09/11/2024 TANJA SANTOS [facility] No family history on file Normal [facility] BASIC METABOLIC PANLon 08-31 Anion gap [Moles/Vol] 7 mmol/L Normal 5-15 [facility] Comment on above: Performed By: #### C BCA, PINR, 64677-1, BMP #### [facility] ([id number]) [address] [place] [address] 19083 Calcium [Mass/Vol] 9.5 mg/dL Normal 8.5-10.5 [facility] Comment on above: Performed By: #### C BCA, PINR, 10253-2, BMP #### [facility] ([id number]) [address] [place] [address] Chloride [Moles/Vol] 105 mmol/L Normal 98-109 [facility] Comment on above: Performed By: #### C BCA, PINR, 74149-9, BMP #### [facility] ([id number]) [address] [place] [address] CO2 [Moles/Vol] 24 mmol/L Normal 22-32 [facility] Comment on above: Performed By: #### C MT CORTEZ, 40391-1, BMP #### [facility] ([id number]) [address] [place] [address] 26119 Creatinine [Mass/Vol] 1.03 mg/dL Normal 0.70-1.20 [facility] Comment on above: Result Comment: METH OD TRACEABLE TO IDMS STANDARD Performed By: #### C MT CORTEZ, 68659-1, BMP #### [facility] ([id number]) [address] [place] [address] 98773 GFR/1.73 sq M.predicted among non-blacks MDRD (S/P/Bld) [Vol rate/Area] 73 mL/min/{1.73_m2} Normal >59 [facility] Comment on above: Result Comment: Reported eGFR is based on the CKD-EPI 2020 equation that does not use a race coefficient. Performed By: #### C MT CORTEZ, 32858-9, BMP #### [facility] ([id number]) [address] [place] [address] 01527 Glucose [Mass/Vol] 123 mg/dL High 65-99 [facility] Comment on above: Performed By: #### C MT CORTEZ, 69202-4, BMP #### [facility] ([id number]) [address] [place] [address] 45872 Potassium [Moles/Vol] 4.1 mmol/L Normal 3.5-5.0 [facility] Comment on above: Performed By: #### C DIEGO PINR, 49057-6, BMP #### [facility] ([id number]) [address] [place] [address] 49442 Sodium [Moles/Vol] 136 mmol/L Normal 134-146 [facility] Comment on above: Performed By: #### C DIEGO PINR, 31852-2, BMP #### [facility] ([id number]) [address] [place] [address] 40767 Urea nitrogen [Mass/Vol] 16 mg/dL Normal 5-27 [facility] Comment on above: Performed By: #### C DIEGO, PINR, 42281-6, BMP #### [facility] ([id number]) [address] [place] [address] 32109 CBC AND AUTO DIFFon 08-31-20 24 ABSOLUTE BASOPHIL 0.0 X10E9/L Normal 0.0-0.2 [facility] Comment on above: Performed By: #### C DIEGO, PINR, 16097-6, BMP #### [facility] ([id number]) [address] [place], [place] [address] ABSOLUTE NEUTROPHIL 5.9 X10E9/L Normal 1.5-6.6 [facility] Comment on above: Performed By: #### C DIEGO, PINR, 64966-5, BMP #### [facility] ([id number]) [address] [place] [address] 53699 Basophils/100 WBC (Bld) 0.4 % Normal [facility] Comment on above: Performed By: #### C DIEGO, PINR, 52220-4, BMP #### [facility] ([id number]) [address] [place] [address] 21323 Eosinophils (Bld) [#/Vol] 0.1 10*3/uL Normal 0.0-0.4 [facility] Comment on above: Performed By: #### C DIEGO, PINR, 62423-1, BMP #### [facility] ([id number]) [address] [place] [address] 32897 Eosinophils/100 WBC (Bld) 0.7 % Normal [facility] Comment on above: Performed By: #### C DIEGO, PINR, 64470-1, BMP #### [facility] ([id number]) [address] [place] [address] 17094 Erythrocyte distribution width (RBC) [Ratio] 16.5 % High 11.5-15.0 [facility] Comment on above: Performed By: #### C MT CORTEZ, 45324-1, BMP #### [facility] ([id number]) [address] [place] [address] 47604 Hematocrit (Bld) [Volume fraction] 44.4 % Normal 39-49 [facility] Comment on above: Performed By: #### C MT CORTEZ, 26201-9, BMP #### [facility] ([id number]) [address] [place] [address] 01926 Hemoglobin (Bld) [Mass/Vol] 14.6 g/dL Normal 13.0-17.0 [facility] Comment on above: Performed By: #### MT Anderson BCA, 28865-4, BMP #### [facility] ([id number]) [address] [place] [address] 78758 Lymphocytes (Bld) [#/Vol] 1.1 10*3/uL Normal 1.0-3.5 [facility] Comment on above: Performed By: #### MT [place] BCA, 03867-3, BMP #### [facility] ([id number]) [address] [place] [address] 56395 Lymphocytes/100 WBC (Bld) 14.5 % Normal [facility] Comment on above: Performed By: #### MT [place] BCA, 61084-1, BMP #### [facility] ([id number]) [address] [place] [address] 00455 MCH (RBC) [Entitic mass] 30.1 pg Normal 27-34 [facility] Comment on above: Performed By: #### MT [place] BCA, 48410-3, BMP #### [facility] ([id number]) [address] [place] [address] 67242 MCHC (RBC) [Mass/Vol] 32.8 g/dL Normal 32-36 [facility] Comment on above: Performed By: #### C DIEGO, PINR, 33957-9, BMP #### [facility] ([id number]) [address] [place] [address] 10170 MCV (RBC) [Entitic vol] 92 fL Normal 80-100 [facility] Comment on above: Performed By: #### Monica CORTEZ, PINR, 47924-3, BMP #### [facility] ([id number]) [address] [place] [address] 95848 Monocytes (Bld) [#/Vol] 0.5 10*3/uL Normal 0-0.9 [facility] Comment on above: Performed By: #### Monica CORTEZ, PINR, 35710-9, BMP #### [facility] ([id number]) [address] [place] [address] 84895 Monocytes/100 WBC (Bld) 6.6 % Normal [facility] Comment on above: Performed By: #### Monica BCA, PINR, 20443-7, BMP #### [facility] ([id number]) [address] [place] [address] 17600 Neutrophils/100 WBC (Bld) 77.8 % Normal [facility] Comment on above: Performed By: #### Monica BCA, PINR, 10604-3, BMP #### [facility] ([id number]) [address] [place] [address] 71949 Platelet mean volume (Bld) [Entitic vol] 8.4 fL Normal 7-12 [facility] Comment on above: Performed By: #### Monica BCA, PINR, 24908-6, BMP #### [facility] ([id number]) [address] [place] [address] 25235 Platelets (Bld) [#/Vol] 122 10*3/uL Low 150-450 [facility] Comment on above: Performed By: #### Monica BCA, PINR, 75510-0, BMP #### [facility] ([id number]) [address] [place] [address] RBC COUNT 4.84 X10E12/L Normal 4.10-5.70 [facility] Comment on above: Performed By: #### C BCA, PINR, 66246-5, BMP #### [facility] ([id number]) [address] [place] [address] WBC (Bld) [#/Vol] 7.6 10*3/uL Normal 4.0-11.0 [facility] Comment on above: Performed By: #### C BCA, PINR, 81421-5, BMP #### [facility] ([id number]) [address] [place] [address] CT ABDOMEN AND PELVIS WO CON Ton 08-31-2024 CT ABDOMEN AND PELVIS WO CONT CT ABDOMEN AND PELVIS WO CONT CLINICAL INFORMATION: Right flank pain followed by some hematuria believes he may have passed this stone but is still having some dysuria.. TECHNIQUE: CT Abdomen and Pelvis without intravenous contrast. All CT scans at this facility use dose modulation, iterative reconstruction, and/or weight based dosing when appropriate to reduce radiation dose to as low as reasonably achievable. COMPARISON: 05/05/2024 FINDINGS: Lung bases are clear. There is a small hiatal hernia. The liver and spleen are homogeneous. The pancreas is grossly unremarkable. There is possible cholelithiasis with otherwise unremarkable gallbladder. There are no adrenal masses. There are no obstructing calculi or hydronephrosis. Renal cysts are stable. There is an abdominal aortic aneurysm with endovascular graft. There is no bowel obstruction. There is no free air or free fluid. There is diverticulosis with no evidence of diverticulitis. The appendix is unremarkable. No acute osseous abnormalities are seen. There are degenerative changes of the spine. Within the pelvis urinary bladder is intact. There is no free fluid. The perirectal fat planes are preserved. IMPRESSION: * No evidence of acute process. * Diverticulosis with no evidence of diverticulitis. * Small hiatal hernia. * Cholelithiasis Finalized by Pamela Corbett DO on 08/31/2024 12:39 PM Normal [facility] PROTIME AND INRon 08-31-2024 INR Coag (PPP) [Relative time] 2.0 {INR} High 0.8-1.1 [facility] Comment on above: Performed By: #### C DIEGO, PINR, 90282-3, BMP #### [facility] ([id number]) [address] [place] [address] 06910 PT Coag (PPP) [Time] 22.8 s High 9.8-13.2 [facility] Comment on above: Performed By: #### C DIEGO, PINR, 92245-6, BMP #### [facility] ([id number]) [address] [place] [address] 58753 URINE CULTUREon 08-31-2024 Bacteria identified Cx Nom (U) SPECIMEN NOTES URINE RECEIVED WITHOUT PRESERVATIVE CULTURE RESULTS >100,000 ORGANISMS/mL SERRATIA MARCESCENS URINE RECEIVED WITHOUT PRESERVATIVE-DELAYS IN TRANSPORT MAY AFFECT RESULTS.INTERPRET WITH CAUTION AND CLINICAL CORRELATION IS RECOMMENDED. [ S = SUSCEPTIBLE R = RESISTANT I = INTERMEDIATE S-DO = Susceptible-dose dependent NS = Non-suscceptible NO = No Interpretation ] Organism: SERRATIA MARCESCENS Antibiotic Interpretation KIRT Status CEFAZOLIN R >=64 F CEFTRIAXONE S <=0.25 F CIPROFLOXACIN S <=0.25 F GENTAMICIN S <=1 F LEVOFLOXACIN S <=0.12 F NITROFURANTOIN R 256 F TOBRAMYCIN S 2 F TRIMETH/SULFAMETHOXAZO LE S <=1/19 F Susceptible [facility] Comment on above: Performed By: #### 6 30-4 #### [facility] ([id number]) [address] [place] [address] URN MACROSCOPIC NURon 2023 BILIRUBIN ALEJANDRO Negative Normal NEG [facility] Comment on above: Performed By: #### N UM #### [facility] ([id number]) [address] [place] [address] 70129 BLOOD/HGB ALEJANDRO Trace Abnormal NEG [facility] Comment on above: Performed By: #### N UM #### [facility] ([id number]) [address] [place] [address] 37991 GLUCOSE ALEJANDRO 500 mg/dL Abnormal NEG [facility] Comment on above: Performed By: #### N UM #### [facility] ([id number]) [address] [place] [address] 76441 KETONES ALEJANDRO Negative Normal NEG [facility] Comment on above: Performed By: #### N UM #### [facility] ([id number]) [address] [place] [address] 47199 LEUKOCYTE ESTERASE ALEJANDRO Small Abnormal NEG [facility] Comment on above: Performed By: #### N UM #### [facility] ([id number]) [address] [place] [address] 04310 NITRITE ALEJANDRO Negative Normal NEG [facility] Comment on above: Performed By: #### N UM #### [facility] ([id number]) [address] [place] [address] 30851 PH ALEJANDRO 7.0 Normal 5.0-8.5 [facility] Comment on above: Performed By: #### N UM #### [facility] ([id number]) [address] [place] [address] 32244 PROTEIN ALEJANDRO Trace Abnormal NEG [facility] Comment on above: Performed By: #### N UM #### [facility] ([id number]) [address] [place] [address] 66429 SPECIFIC GRAVITY ALEJANDRO 1.025 Normal 1.003-1.035 [facility] Comment on above: Performed By: #### N UM #### [facility] ([id number]) [address] [place] [address] 25453 UROBILINOGEN ALEJANDRO 0.2 eu/dL Normal <1.1 [facility] Comment on above: Performed By: #### N UM #### [facility] ([id number]) [address] [place] [address] 43170 US SCROTUM WITH DUPLEXon US SCROTUM WITH DUPLEX US SCROTUM WITH DUPLEX CLINICAL INFORMATION: Evaluate for Testicular Torsion. TECHNIQUE: Real-time sonographic evaluation of the scrotum and testes was performed with valera scale and color flow imaging. Real time valera scale, color flow imaging and duplex spectral Doppler waveform analysis evaluation was performed of the major arterial inflow and venous outflow structures of the testicles with arterial and venous spectral waveforms obtained and reviewed in view of the clinical history of Evaluate for Testicular Torsion . Duplex spectral Doppler document arterial and venous spectral waveforms documented within the major arterial inflow and venous outflow of both testicles. Arterial and venous Doppler duplex spectral waveforms were evaluated. COMPARISON: No relevant prior studies available. FINDINGS: Right distal measures 2.8 x 2.5 x 2.3 cm. Heterogeneous enlargement of the right distal epididymis with hyperemia. Fusiform increased Doppler flow, with measurement of 1.7 x 2.1 x 2.4 cm. The left testicle measures 3.4 x 1.6 x 2.4 cm with tubular ectasia of the rete testes. Complex left epididymal cyst measuring up to 6 mm. No hydrocele. The arterial and venous waveforms are within normal limits. IMPRESSION: * Extratesticular heterogeneous lesion likely involving the tail of the epididymis with calcifications measuring 1.7 x 2.1 x 2.4 cm, this appears hyperemic. Differential diagnosis includes epididymitis, adenomatoid tumor, or other process. * No evidence of intratesticular abnormalities or torsion. * Please see above for further details. Finalized by Gio Rosas MD on 08/31/2024 12:19 PM Normal [facility] aPTT Coag (PPP) [Time]on aPTT Coag (Bld) [Time] 41 s High 26-37 [facility] Comment on above: Performed By: #### C MT CORTEZ, 35664-8, [facility] #### [facility] ([id number]) [address] [place] [address] 66339 Anticoagulation - Warfarin [facility] 08-10-2024 Anticoagulation - Warfarin Visit [id number] Gus Del Cid 1945 Date Provider Department Center 08/10/2024 RA VALADEZ [facility] No family history on file Normal [facility] Anticoagulation - Warfarin [facility] 07-27-2024 Anticoagulation - Warfarin Visit [id number] Gus Del Cid 1945 M Date Provider Department Center 07/27/2024 RA VALADEZOANiyah [facility] No family history on file Normal [facility] Anticoagulation - Warfarin [facility] 07-13-2024 Anticoagulation - Warfarin Visit [id number] Gus Del Cid 1945 M Date Provider Department Center 07/13/2024 RA VALADEZOANiyah [facility] No family history on file Normal [facility] Telephoneon 07-13-2024 Telephone [id number] Hussain Del Cid 1945 M Date Provider Department [place] 07/13/2024 RA VALADEZ [facility] No family history on file Normal [facility] CT CTA ABD AND PELVISon 06-15 CT CTA ABD AND PELVIS CT CTA ABD AND PEL VIS CT CTA ABD AND PELVIS HISTORY: Infrarenal abdominal aortic aneurysm (AAA) without rupture ([facility]) COMPARISON: CTA abdomen pelvis runoff 05/05/2024 TECHNIQUE: CT abdomen and pelvis was performed before and after the administration of intravenous contrast. Coronal and sagittal reformatted images were generated and reviewed. Automated exposure control was utilized. 3D: 3D reformats were performed on an independent workstation under concurrent physician supervision, which were then reviewed to further define anatomy and possible pathology. VASCULAR FINDINGS: Postprocedural changes of a patent aortobiiliac stent graft extending from the level of the SMA to the external iliac artery on the right in the bifurcation of the common iliac artery on the left. The excluded abdominal aneurysm sac measures up to 5.2 cm unchanged from prior. No endoleak. 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 No endoleak. External iliac arteries are patent. Chronically occluded right internal iliac artery. Patent left internal iliac artery. Partially visualized patent left femoral bypass. Occluded left superficial femoral artery. KATHYA is reconstituted by collaterals. The celiac and SMA are patent. Single patent bilateral renal arteries. Hepatic veins, portal vein, splenic vein, and SMV appear patent. LOWER THORAX: Interstitial thickening in the posterior lung bases could relate to atelectasis. Biatrial enlargement. Borderline enlarged heart. Reflux of contrast into the hepatic veins compatible with significant right heart dysfunction. LIVER: Subcentimeter hypodensities in the liver which are too small to characterize. Noncirrhotic morphology. BILIARY SYSTEM: Normal gallbladder. No biliary dilation. PANCREAS: Unremarkable. SPLEEN: Unremarkable. ADRENAL GLANDS: Unremarkable. KIDNEYS / URETERS: Bilateral benign renal cysts. Symmetric enhancement of the kidneys. No evidence of solid renal mass. BLADDER: Unremarkable. PELVIC ORGANS: Prostatomegaly. BOWEL: No bowel obstruction or inflammatory changes. Sigmoid diverticulosis. Scattered additional noninflamed colonic diverticuli. Normal appendix. Normal terminal ileum. No small bowel distention. Moderate hiatal hernia. PERITONEAL SPACE: No free air or fluid. LYMPH NODES: No enlarged nodes. BONES: No aggressive lesions. Degenerative changes of the spine. BODY WALL: Postsurgical changes in left groin. IMPRESSION: 1. Patent aortobiiliac stent graft. No endoleak. 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 2. Moderate hiatal hernia. All CT scans at this facility use dose modulation, iterative reconstruction, and/or weight based dosing when appropriate to reduce radiation dose to as low as reasonably achievable. Finalized by Shaan Katz MD on 06/28/2024 12:49 PM Normal [facility] Anticoagulation - Warfarin V solitario 06-27-2024 Anticoagulation - Warfarin Visit [id number] Gus Del Cid 1945 M Date Provider Department Center 06/27/2024 Ari-RA [facility] No family history on file Normal [facility] Anticoagulation - Warfarin V solitario 06-12-2024 Anticoagulation - Warfarin Visit [id number] Gus Del Cid R 1945 M Date Provider Department Center 06/12/2024 [id number]-RA [facility] No family history on file [facility] 36on 06-02-2024 36 Spoke with patient regarding post op check in. Patient doing well and no complications reported. Patient states he followed the discharge plan for resuming warfarin as directed. Plan for INR on 06/05. [facility] 36 Patient underwent an endovascular repair for his infrarenal abdominal aortic aneurysm and was admitted to [facility] overnight from 05/31/24-06/01/24. Attempted to call patient and perform post-op check in and confirm patient re-started warfarin. Patient due for INR (home monitor) on 06/05. LVM for patient to return call. [facility] Telephoneon 06-02-2024 Telephone [phone] Hussain Del Cid R 1945 M Date Provider Department [place] 06/02/2024 [id number], [facility] No family history on file Reason for Visit and Comments: Anticoagulation [8] [facility] BASIC METABOLIC PANLon 06-01 Anion gap [Moles/Vol] 8 mmol/L Normal 5-15 [facility] Comment on above: Performed By: #### C BCA, PINR, 2132-07, CMP, FEPR, 2276-4, 2284-8, #### [facility] ([id number]) [address], [address] [place] [address] Calcium [Mass/Vol] 9.2 mg/dL Normal 8.5-10.5 [facility] Comment on above: Performed By: #### C BCA, PINR, 2132-07, CMP, FEPR, 2276-4, 2284-8, 03701-1 #### [facility] ([id number]) [address], [address] [place] [address] Chloride [Moles/Vol] 108 mmol/L Normal 98-109 [facility] Comment on above: Performed By: #### C BCA, PINR, 2132-07, CMP, FEPR, 2276-4, 2284-8, #### [facility] ([id number]) [address], [address] [place] [address] CO2 [Moles/Vol] 22 mmol/L Normal 22-32 [facility] Comment on above: Performed By: #### C BCA, PINR, 2132-07, CMP, FEPR, 2276-4, 2284-8, #### [facility] ([id number]) [address] [facility] [place] [address] Creatinine [Mass/Vol] 0.90 mg/dL Normal 0.60-1.30 [facility] Comment on above: Result Comment: METH OD TRACEABLE TO IDMS STANDARD Performed By: #### C BCA, PINR, 2132-07, CMP, FEPR, 6-4, 4-8, #### [facility] ([id number]) [address], [address] [address] GFR/1.73 sq M.predicted among non-blacks MDRD (S/P/Bld) [Vol rate/Area] 86 mL/min/{1.73_m2} Normal >59 [facility] Comment on above: Result Comment: Reported eGFR is based on the CKD-EPI 2020 equation that does not use a race coefficient. Performed By: #### C BCA, PINR, 2132-07, CMP, FEPR, 2276-4, 2284-8, #### [facility] ([id number]) [address], [address] [place] [address] Glucose [Mass/Vol] 136 mg/dL High 65-99 [facility] Comment on above: Performed By: #### C BCA, PINR, 2132-07, CMP, FEPR, 2276-4, 2283-8, #### [facility] ([id number]) [address], [address] [place] [address] Potassium [Moles/Vol] 4.2 mmol/L Normal 3.5-5.0 [facility] Comment on above: Performed By: #### C BCA, PINR, 2132-07, CMP, FEPR, 2275-4, 2283-8, #### [facility] ([id number]) [address], [address] [place] [address] Sodium [Moles/Vol] 138 mmol/L Normal 134-146 [facility] Comment on above: Performed By: #### C BCA, PINR, 2132-07, CMP, FEPR, 2275-4, 2283-8, #### [facility] ([id number]) [address], [address] [place] [address] Urea nitrogen [Mass/Vol] 22 mg/dL Normal 5-27 [facility] Comment on above: Performed By: #### C BCA, PINR, 2132-07, CMP, FEPR, 2275-4, 2283-8, #### [facility] ([id number]) [address], [address] [place] [address] CBC AND AUTO DIFFon 06-01-20 24 ABSOLUTE BASOPHIL 0.0 X10E9/L Normal 0.0-0.2 [facility] Comment on above: Performed By: #### C BCA, PINR, 2132-07, CMP, FEPR, 2275-4, 2283-8, #### [facility] ([id number]) [address], [address] [place] [address] ABSOLUTE NEUTROPHIL 5.6 X10E9/L Normal 1.5-6.6 [facility] Comment on above: Performed By: #### C BCA, PINR, 2132-07, CMP, FEPR, 2276-4, 2284-8, #### [facility] ([id number]) [address], [address] [place] [address] Basophils/100 WBC (Bld) 0.2 % Normal [facility] Comment on above: Performed By: #### C BCA, PINR, 2132-07, CMP, FEPR, 2276-4, 2284-8, #### [facility] ([id number]) [address], [address] [place] [address] Eosinophils (Bld) [#/Vol] 0.0 10*3/uL Normal 0.0-0.4 [facility] Comment on above: Performed By: #### C BCA, PINR, 2132-07, CMP, FEPR, 6-4, 4-8, #### [facility] ([id number]) [address], [address] [place] [address] Eosinophils/100 WBC (Bld) 0.1 % Normal [facility] Comment on above: Performed By: #### C BCA, PINR, 2132-07, CMP, FEPR, 6-4, 4-8, #### [facility] ([id number]) [address], [address] [place] [address] Erythrocyte distribution width (RBC) [Ratio] 14.8 % Normal 11.5-15.0 [facility] Comment on above: Performed By: #### C BCA, PINR, 2132-07, CMP, FEPR, 6-4, 4-8, #### [facility] ([id number]) [address], [address] [place] [address] Hematocrit (Bld) [Volume fraction] 39.9 % Normal 39-49 [facility] Comment on above: Performed By: #### C BCA, PINR, 2132-07, CMP, FEPR, 2276-4, 2284-8, 46228-0 #### [facility] ([id number]) [address], [address] [place] [address] Hemoglobin (Bld) [Mass/Vol] 13.4 g/dL Normal 13.0-17.0 [facility] Comment on above: Performed By: #### C BCA, PINR, 2132-07, CMP, FEPR, 2276-4, 2284-8, 79361-8 #### [facility] ([id number]) [address], [facility] [address] [place] [address] Lymphocytes (Bld) [#/Vol] 0.6 10*3/uL Low 1.0-3.5 [facility] Comment on above: Performed By: #### C BCA, PINR, 2132-07, CMP, FEPR, 6-4, 4-8, #### [facility] ([id number]) [address], [address] [place] [address] Lymphocytes/100 WBC (Bld) 9.8 % Normal [facility] Comment on above: Performed By: #### C BCA, PINR, 2132-07, CMP, FEPR, 2276-4, 4-8, 36335-8 #### [facility] ([id number]) [address], [address] [place] [address] MCH (RBC) [Entitic mass] 31.3 pg Normal 27-34 [facility] Comment on above: Performed By: #### C BCA, PINR, 2132-07, CMP, FEPR, 2276-4, 2284-8, 66400-5 #### [facility] ([id number]) [address], [address] [place] [address] MCHC (RBC) [Mass/Vol] 33.5 g/dL Normal 32-36 [facility] Comment on above: Performed By: #### C BCA, PINR, 2132-07, CMP, FEPR, 2276-4, 2284-8, #### [facility] ([id number]) [address], [address] [place] [address] MCV (RBC) [Entitic vol] 93 fL Normal 80-100 [facility] Comment on above: Performed By: #### C BCA, PINR, 2132-07, CMP, FEPR, 2276-4, 2284-8, 43849-0 #### [facility] ([id number]) [address], [facility] [address] [place] [address] Monocytes (Bld) [#/Vol] 0.3 10*3/uL Normal 0-0.9 [facility] Comment on above: Performed By: #### C BCA, PINR, 2132-07, CMP, FEPR, 6-4, 4-8, 79503-6 #### [facility] ([id number]) [address], [address] [place] [address] Monocytes/100 WBC (Bld) 4.0 % Normal [facility] Comment on above: Performed By: #### C BCA, PINR, 2132-07, CMP, FEPR, 2276-4, 4-8, 77745-8 #### [facility] ([id number]) [address], [address] [place] [address] Neutrophils/100 WBC (Bld) 85.9 % Normal [facility] Comment on above: Performed By: #### C BCA, PINR, 2132-07, CMP, FEPR, 6-4, 4-8, 01491-5 #### [facility] ([id number]) [address], [address] [place] [address] Platelet mean volume (Bld) [Entitic vol] 9.4 fL Normal 7-12 [facility] Comment on above: Performed By: #### C BCA, PINR, 9, CMP, FEPR, 2276-4, 2284-8, 71188-9 #### [facility] ([id number]) [address], [address] [place] [address] Platelets (Bld) [#/Vol] 85 10*3/uL Low 150-450 [facility] Comment on above: Performed By: #### C BCA, PINR, 2132-07, CMP, FEPR, 2276-4, 2284-8, 92915-3 #### [facility] ([id number]) [address], [address] [place] [address] RBC COUNT 4.27 X10E12/L Normal 4.10-5.70 [facility] Comment on above: Performed By: #### C BCA, PINR, 2132-07, CMP, FEPR, 6-4, 4-8, 59723-5 #### [facility] ([id number]) [address], [address] [place] [address] WBC (Bld) [#/Vol] 6.6 10*3/uL Normal 4.0-11.0 [facility] Comment on above: Performed By: #### C BCA, PINR, 2132-07, CMP, FEPR, 2276-4, 4-8, 19068-5 #### [facility] ([id number]) [address], [address] [place] [address] BASIC METABOLIC PANLon 05-31 Anion gap [Moles/Vol] 8 mmol/L Normal 5-15 [facility] Comment on above: Performed By: #### C BCA, PINR, 9, CMP, FEPR, 2276-4, 2284-8, 81150-0 #### [facility] ([id number]) [address], [address] [place] [address] Calcium [Mass/Vol] 9.2 mg/dL Normal 8.5-10.5 [facility] Comment on above: Performed By: #### C BCA, PINR, 2132-07, CMP, FEPR, 2276-4, 4-8, #### [facility] ([id number]) [address], [address] [place] [address] Chloride [Moles/Vol] 109 mmol/L Normal 98-109 [facility] Comment on above: Performed By: #### C BCA, PINR, 2132-07, CMP, FEPR, 2276-4, 4-8, 38705-9 #### [facility] ([id number]) [address], [address] [place] [address] CO2 [Moles/Vol] 24 mmol/L Normal 22-32 [facility] Comment on above: Performed By: #### C BCA, PINR, 2132-07, CMP, FEPR, 6-4, 2283-8, #### [facility] ([id number]) [address], [address] [place] [address] Creatinine [Mass/Vol] 0.99 mg/dL Normal 0.60-1.30 [facility] Comment on above: Result Comment: METH OD TRACEABLE TO IDMS STANDARD Performed By: #### C BCA, PINR, 2132-07, CMP, FEPR, 6-4, 2283-8, #### [facility] ([id number]) [address], [address] [place] [address] GFR/1.73 sq M.predicted among non-blacks MDRD (S/P/Bld) [Vol rate/Area] 77 mL/min/{1.73_m2} Normal >59 [facility] Comment on above: Result Comment: Reported eGFR is based on the CKD-EPI 2020 equation that does not use a race coefficient. Performed By: #### C BCA, PINR, 2132-07, CMP, FEPR, 2276-4, 2284-8, #### [facility] ([id number]) [address], [address] [place] [address] Glucose [Mass/Vol] 136 mg/dL High 65-99 [facility] Comment on above: Performed By: #### C BCA, PINR, 2132-07, CMP, FEPR, 6-4, 2283-8, #### [facility] ([id number]) [address], [address] [place] [address] Potassium [Moles/Vol] 4.3 mmol/L Normal 3.5-5.0 [facility] Comment on above: Performed By: #### C BCA, PINR, 2132-07, CMP, FEPR, 2275-4, 2283-8, #### [facility] ([id number]) [address], [address] [place] [address] Sodium [Moles/Vol] 141 mmol/L Normal 134-146 [facility] Comment on above: Performed By: #### C BCA, PINR, 2132-07, CMP, FEPR, 2275-4, 2283-8, #### [facility] ([id number]) [address], [address] [place] [address] Urea nitrogen [Mass/Vol] 21 mg/dL Normal 5-27 [facility] Comment on above: Performed By: #### C BCA, PINR, 2132-07, CMP, FEPR, 2275-4, 2283-8, #### [facility] ([id number]) [address], [address] [place] [address] CBC AND AUTO DIFFon 05-31-20 24 ABSOLUTE BASOPHIL 0.0 X10E9/L Normal 0.0-0.2 [facility] Comment on above: Performed By: #### C BCA, PINR, 2132-07, CMP, FEPR, 2276-4, 2284-8, #### [facility] ([id number]) [address], [address] [place] [address] ABSOLUTE NEUTROPHIL 4.4 X10E9/L Normal 1.5-6.6 [facility] Comment on above: Performed By: #### C BCA, PINR, 2132-07, CMP, FEPR, 6-4, 2283-8, #### [facility] ([id number]) [address], [address] [place] [address] Basophils/100 WBC (Bld) 0.3 % Normal [facility] Comment on above: Performed By: #### C BCA, PINR, 2132-07, CMP, FEPR, 2275-4, 2283-8, #### [facility] ([id number]) [address], [address] [place] [address] Eosinophils (Bld) [#/Vol] 0.0 10*3/uL Normal 0.0-0.4 [facility] Comment on above: Performed By: #### C BCA, PINR, 2132-07, CMP, FEPR, 2275-4, 2283-8, #### [facility] ([id number]) [address], [address] [place] [address] Eosinophils/100 WBC (Bld) 0.6 % Normal [facility] Comment on above: Performed By: #### C BCA, PINR, 2132-07, CMP, FEPR, 6-4, 2283-8, #### [facility] ([id number]) [address], [address] [place] [address] Erythrocyte distribution width (RBC) [Ratio] 14.9 % Normal 11.5-15.0 [facility] Comment on above: Performed By: #### C BCA, PINR, 2132-07, CMP, FEPR, 2276-4, 2284-8, #### [facility] ([id number]) [address] [address] [place] [address] Hematocrit (Bld) [Volume fraction] 40.4 % Normal 39-49 [facility] Comment on above: Performed By: #### C BCA, PINR, 2132-07, CMP, FEPR, 6-4, 2283-8, #### [facility] ([id number]) [address] [address] Hemoglobin (Bld) [Mass/Vol] 13.2 g/dL Normal 13.0-17.0 [facility] Comment on above: Performed By: #### C BCA, PINR, 2132-07, CMP, FEPR, 6-4, 2283-8, #### [facility] ([id number]) [address] [address] Lymphocytes (Bld) [#/Vol] 0.7 10*3/uL Low 1.0-3.5 [facility] Comment on above: Performed By: #### C BCA, PINR, 2132-07, CMP, FEPR, 6-4, 2283-8, #### [facility] ([id number]) [address] [address] Lymphocytes/100 WBC (Bld) 12.7 % Normal [facility] Comment on above: Performed By: #### C BCA, PINR, 2132-07, CMP, FEPR, 2275-4, 2283-8, #### [facility] ([id number]) [address] [address] MCH (RBC) [Entitic mass] 30.5 pg Normal 27-34 [facility] Comment on above: Performed By: #### C BCA, PINR, 2132-07, CMP, FEPR, 2276-4, 4-8, #### [facility] ([id number]) [address], [address] [place] [address] MCHC (RBC) [Mass/Vol] 32.6 g/dL Normal 32-36 [facility] Comment on above: Performed By: #### C BCA, PINR, 2132-07, CMP, FEPR, 6-4, 4-8, #### [facility] ([id number]) [address], [address] [place] [address] MCV (RBC) [Entitic vol] 94 fL Normal 80-100 [facility] Comment on above: Performed By: #### C BCA, PINR, 2132-07, CMP, FEPR, 6-4, 2283-8, #### [facility] ([id number]) [address], [address] [place] [address] Monocytes (Bld) [#/Vol] 0.1 10*3/uL Normal 0-0.9 [facility] Comment on above: Performed By: #### C BCA, PINR, 2132-07, CMP, FEPR, 6-4, 2283-8, #### [facility] ([id number]) [address], [address] [place] [address] Monocytes/100 WBC (Bld) 2.4 % Normal [facility] Comment on above: Performed By: #### C BCA, PINR, 2132-07, CMP, FEPR, 6-4, 4-8, 36521-0 #### [facility] ([id number]) [address], [address] [place] [address] Neutrophils/100 WBC (Bld) 84.0 % Normal [facility] Comment on above: Performed By: #### C BCA, PINR, 2132-9, CMP, FEPR, 2276-4, 2284-8, #### [facility] ([id number]) [address], [address] [place] [address] Platelet mean volume (Bld) [Entitic vol] 9.6 fL Normal 7-12 [facility] Comment on above: Performed By: #### C BCA, PINR, 2132-07, CMP, FEPR, 2276-4, 2284-8, #### [facility] ([id number]) [address], [address] [place] [address] Platelets (Bld) [#/Vol] 81 10*3/uL Low 150-450 [facility] Comment on above: Performed By: #### C BCA, PINR, 2132-07, CMP, FEPR, 6-4, 2283-8, #### [facility] ([id number]) [address], [address] [place] [address] RBC COUNT 4.32 X10E12/L Normal 4.10-5.70 [facility] Comment on above: Performed By: #### C BCA, PINR, 2132-07, CMP, FEPR, 6-4, 2283-8, #### [facility] ([id number]) [address], [address] [place] [address] WBC (Bld) [#/Vol] 5.2 10*3/uL Normal 4.0-11.0 [facility] Comment on above: Performed By: #### C BCA, PINR, 2132-07, CMP, FEPR, 6-4, 2283-8, #### [facility] ([id number]) [address], [address] [place] [address] Magnesium Ionized ISE (Bld) [Moles/Vol]on 05-31-2024 Magnesium [Moles/Vol] 0.48 mmol/L Normal 0.45-0.74 [facility] Comment on above: Result Comment: NEW REFERENCE RANGE Performed By: #### C BCA, PINR, 2132-07, CMP, FEPR, 2276-4, 2284-8, #### [facility] ([id number]) [address], [address] [place] [address] POC BUN CREATon 05-31-2024 Creatinine [Mass/Vol] 1.1 mg/dL Normal 0.7-1.2 [facility] Comment on above: Result Comment: METH OD TRACEABLE TO IDMS STANDARD Performed By: #### C BCA, PINR, 2132-07, CMP, FEPR, 6-4, 2284-8, #### [facility] ([id number]) [address], [address] [place] [address] GFR/1.73 sq M.predicted among non-blacks MDRD (S/P/Bld) [Vol rate/Area] 68 mL/min/{1.73_m2} Normal >59 [facility] Comment on above: Result Comment: Reported eGFR is based on the CKD-EPI 2020 equation that does not use a race coefficient. Performed By: #### C BCA, PINR, 2132-07, CMP, FEPR, 6-4, 4-8, #### [facility] ([id number]) [address], [address] [place] [address] Urea nitrogen [Mass/Vol] 20 mg/dL Normal 6-27 [facility] Comment on above: Performed By: #### C BCA, PINR, 2132-07, CMP, FEPR, 6-4, 4-8, #### [facility] ([id number]) [address], [address] [place] [address] PROTIME AND INRon 05-31-2024 INR Coag (PPP) [Relative time] 1.2 {INR} High 0.8-1.1 [facility] Comment on above: Performed By: #### C BCA, PINR, 2132-07, CMP, FEPR, 6-4, 2283-8, #### [facility] ([id number]) [address], [address] [place] [address] PT Coag (PPP) [Time] 13.5 s High 9.8-13.2 [facility] Comment on above: Performed By: #### C BCA, PINR, 2132-07, CMP, FEPR, 6-4, 2283-8, #### [facility] ([id number]) [address], [address] [place] [address] BASIC METABOLIC PANLon 05-26 Anion gap [Moles/Vol] 9 mmol/L Normal 5-15 [facility] Comment on above: Performed By: #### C BCA, PINR, 2132-07, CMP, FEPR, 2275-4, 2283-8, #### [facility] ([id number]) [address], [address] [place] [address] Calcium [Mass/Vol] 10.1 mg/dL Normal 8.5-10.5 [facility] Comment on above: Performed By: #### C BCA, PINR, 2132-07, CMP, FEPR, 2275-4, 2283-8, #### [facility] ([id number]) [address], [address] [place] [address] Chloride [Moles/Vol] 105 mmol/L Normal 98-109 [facility] Comment on above: Performed By: #### C BCA, PINR, 2132-07, CMP, FEPR, 2275-4, 2283-8, #### [facility] ([id number]) [address], [address] [place] [address] CO2 [Moles/Vol] 26 mmol/L Normal 22-32 [facility] Comment on above: Performed By: #### C BCA, PINR, 2132-07, CMP, FEPR, 2276-4, 4-8, #### [facility] ([id number]) [address], [address] [place] [address] Creatinine [Mass/Vol] 1.05 mg/dL Normal 0.60-1.30 [facility] Comment on above: Result Comment: METH OD TRACEABLE TO IDMS STANDARD Performed By: #### C BCA, PINR, 2132-07, CMP, FEPR, 6-4, 4-8, #### [facility] ([id number]) [address], [address] [address] GFR/1.73 sq M.predicted among non-blacks MDRD (S/P/Bld) [Vol rate/Area] 72 mL/min/{1.73_m2} Normal >59 [facility] Comment on above: Result Comment: Reported eGFR is based on the CKD-EPI 2020 equation that does not use a race coefficient. Performed By: #### C BCA, PINR, 2132-07, CMP, FEPR, 6-4, 2283-8, #### [facility] ([id number]) [address], [address] [place] [address] Glucose [Mass/Vol] 107 mg/dL High 65-99 [facility] Comment on above: Performed By: #### C BCA, PINR, 2132-07, CMP, FEPR, 6-4, 4-8, #### [facility] ([id number]) [address], [address] [place] [address] Potassium [Moles/Vol] 4.5 mmol/L Normal 3.5-5.0 [facility] Comment on above: Performed By: #### C BCA, PINR, 2132-9, CMP, FEPR, 2276-4, 2283-8, #### [facility] ([id number]) [address], [address] [place] [address] Sodium [Moles/Vol] 140 mmol/L Normal 134-146 [facility] [facility] Comment on above: Performed By: #### C BCA, PINR, 2132-07, CMP, FEPR, 2275-4, 2283-8, #### [facility] ([id number]) [address], [facility] [address] [place] [address] Urea nitrogen [Mass/Vol] 21 mg/dL Normal 5-27 [facility] Comment on above: Performed By: #### C BCA, PINR, 2132-07, CMP, FEPR, 2275-4, 2283-8, #### [facility] ([id number]) [address], [address] [place] [address] CBC AND AUTO DIFFon 05-26-20 24 ABSOLUTE BASOPHIL 0.0 X10E9/L Normal 0.0-0.2 [facility] Comment on above: Performed By: #### C BCA, PINR, 2132-07, CMP, FEPR, 2275-4, 2283-8, #### [facility] ([id number]) [address], [address] [address] ABSOLUTE NEUTROPHIL 3.1 X10E9/L Normal 1.5-6.6 [facility] Comment on above: Performed By: #### C BCA, PINR, 2132-07, CMP, FEPR, 2275-4, 2283-8, #### [facility] ([id number]) [address] [address] Basophils/100 WBC (Bld) 0.4 % Normal [facility] Comment on above: Performed By: #### C BCA, PINR, 2132-07, CMP, FEPR, 2276-4, 2284-8, #### [facility] ([id number]) [address] [address] [place] [address] Eosinophils (Bld) [#/Vol] 0.0 10*3/uL Normal 0.0-0.4 [facility] Comment on above: Performed By: #### C BCA, PINR, 2132-07, CMP, FEPR, 2276-4, 4-8, #### [facility] ([id number]) [address] [address] Eosinophils/100 WBC (Bld) 1.0 % Normal [facility] Comment on above: Performed By: #### C BCA, PINR, 2132-07, CMP, FEPR, 6-4, 4-8, #### [facility] ([id number]) [address] [address] Erythrocyte distribution width (RBC) [Ratio] 14.5 % Normal 11.5-15.0 [facility] Comment on above: Performed By: #### C BCA, PINR, 2132-07, CMP, FEPR, 6-4, 2283-8, #### [facility] ([id number]) [address] [address] Hematocrit (Bld) [Volume fraction] 44.5 % Normal 39-49 [facility] Comment on above: Performed By: #### C BCA, PINR, 2132-07, CMP, FEPR, 6-4, 4-8, #### [facility] ([id number]) [address] [address] Hemoglobin (Bld) [Mass/Vol] 14.8 g/dL Normal 13.0-17.0 [facility] Comment on above: Performed By: #### C BCA, PINR, 2132-07, CMP, FEPR, 2276-4, 4-8, #### [facility] ([id number]) [address], [address] [place] [address] Lymphocytes (Bld) [#/Vol] 1.4 10*3/uL Normal 1.0-3.5 [facility] Comment on above: Performed By: #### C BCA, PINR, 2132-07, CMP, FEPR, 2276-4, 4-8, #### [facility] ([id number]) [address], [facility] [address] [place] [address] Lymphocytes/100 WBC (Bld) 28.0 % Normal [facility] Comment on above: Performed By: #### C BCA, PINR, 2132-07, CMP, FEPR, 6-4, 2283-8, 56497-8 #### [facility] ([id number]) [address], [address] [place] [address] MCH (RBC) [Entitic mass] 31.1 pg Normal 27-34 [facility] Comment on above: Performed By: #### C BCA, PINR, 2132-07, CMP, FEPR, 6-4, 4-8, 19944-9 #### [facility] ([id number]) [address], [address] [place] [address] MCHC (RBC) [Mass/Vol] 33.2 g/dL Normal 32-36 [facility] Comment on above: Performed By: #### C BCA, PINR, 2132-07, CMP, FEPR, 6-4, 4-8, 59358-9 #### [facility] ([id number]) [address], [address] [place] [address] MCV (RBC) [Entitic vol] 94 fL Normal 80-100 [facility] Comment on above: Performed By: #### C BCA, PINR, 2132-07, CMP, FEPR, 2276-4, 2284-8, 28999-6 #### [facility] ([id number]) [address], [address] [place] [address] Monocytes (Bld) [#/Vol] 0.4 10*3/uL Normal 0-0.9 [facility] Comment on above: Performed By: #### C BCA, PINR, 2132-07, CMP, FEPR, 2276-4, 2284-8, 23089-9 #### [facility] ([id number]) [address], [address] [place] [address] Monocytes/100 WBC (Bld) 7.5 % Normal [facility] Comment on above: Performed By: #### C BCA, PINR, 2132-07, CMP, FEPR, 6-4, 4-8, 36404-4 #### [facility] ([id number]) [address], [address] [place] [address] Neutrophils/100 WBC (Bld) 63.1 % Normal [facility] Comment on above: Performed By: #### C BCA, PINR, 2132-07, CMP, FEPR, 6-4, 4-8, 08993-3 #### [facility] ([id number]) [address], [address] [place] [address] Platelet mean volume (Bld) [Entitic vol] 10.0 fL Normal 7-12 [facility] Comment on above: Performed By: #### C BCA, PINR, 2132-07, CMP, FEPR, 2276-4, 2284-8, 53544-6 #### [facility] ([id number]) [address], [address] [place] [address] Platelets (Bld) [#/Vol] 105 10*3/uL Low 150-450 [facility] Comment on above: Performed By: #### C BCA, PINR, 2132-07, CMP, FEPR, 2276-4, 2284-8, 16263-4 #### [facility] ([id number]) [address], [address] [place] [address] RBC COUNT 4.76 X10E12/L Normal 4.10-5.70 [facility] Comment on above: Performed By: #### C BCA, PINR, 2132-07, CMP, FEPR, 2276-4, 2284-8, 22576-7 #### [facility] ([id number]) [address], [address] [place] [address] WBC (Bld) [#/Vol] 4.9 10*3/uL Normal 4.0-11.0 [facility] Comment on above: Performed By: #### C BCA, PINR, 2132-07, CMP, FEPR, 2276-4, 4-8, 62164-5 #### [facility] ([id number]) [address], [address] [place] [address] HGB A1C (GLYCO-HGB)on 2023 Glucose [Mass/Vol] 143 mg/dL Normal [facility] Comment on above: Performed By: #### C BCA, PINR, 2132-07, CMP, FEPR, 2276-4, 2284-8, 42973-9 #### [facility] ([id number]) [address], [address] [place] [address] HbA1c (Bld) [Mass fraction] 6.6 % High 4.4-5.6 [facility] Comment on above: Result Comment: NOTE ADA Guidelines Result HgbA1c Normal : less than 5.7 % Prediabetes : 5.7 % to 6.4 % Diabetes : > 6.4 % Use with caution in patients with abnormal hemoglobin variants as the half-life of red blood cells and in vivo glycation rates are affected. Performed By: #### C BCA, PINR, 9, CMP, FEPR, 2276-4, 2284-8, #### [facility] ([id number]) [address], [address] [place] [address] PROTIME AND INRon 05-26-2024 INR Coag (PPP) [Relative time] 2.0 {INR} High 0.8-1.1 [facility] Comment on above: Performed By: #### C BCA, PINR, 2132-07, CMP, FEPR, 6-4, 4-8, #### [facility] ([id number]) [address], [address] [place] [address] PT Coag (PPP) [Time] 22.9 s High 9.8-13.2 [facility] Comment on above: Performed By: #### C BCA, PINR, 2132-07, CMP, FEPR, 6-4, 4-8, #### [facility] ([id number]) [address], [address] [place] [address] URINALYSISon 05-26-2024 Bilirubin Ql (U) Negative Normal NEG [facility] Comment on above: Performed By: #### C BCA, PINR, 2132-07, CMP, FEPR, 2275-4, 2283-8, #### [facility] ([id number]) [address], [address] [place] [address] BLOOD/HGB Negative Normal NEG [facility] Comment on above: Performed By: #### C BCA, PINR, 2132-07, CMP, FEPR, 2276-4, 4-8, #### [facility] ([id number]) [address], [address] [place] [address] Color (U) YELLOW Normal YELLOW [facility] Comment on above: Performed By: #### C BCA, PINR, 9, CMP, FEPR, 2276-4, 2284-8, 02622-7 #### [facility] ([id number]) [address], [address] [place] [address] Glucose Ql (U) Negative Normal NEG [facility] Comment on above: Performed By: #### C BCA, PINR, 9, CMP, FEPR, 2276-4, 2284-8, 73412-5 #### [facility] ([id number]) [address], [address] [place] [address] Ketones Ql (U) Negative Normal NEG [facility] Comment on above: Performed By: #### C BCA, PINR, 9, CMP, FEPR, 2276-4, 2284-8, 82473-6 #### [facility] ([id number]) [address], [address] [place] [address] Leukocyte esterase Test strip Ql (U) Negative Normal NEG [facility] Comment on above: Performed By: #### C BCA, PINR, 2132-07, CMP, FEPR, 2276-4, 2284-8, 44727-2 #### [facility] ([id number]) [address], [address] [place] [address] MUCOUS PRESENT Abnormal NONE [facility] Comment on above: Performed By: #### C BCA, PINR, 2132-07, CMP, FEPR, 2276-4, 2284-8, 42979-2 #### [facility] ([id number]) [address], [address] [place] [address] Nitrite Ql (U) Negative Normal NEG [facility] Comment on above: Performed By: #### C BCA, PINR, 9, CMP, FEPR, 2276-4, 2284-8, 59985-8 #### [facility] ([id number]) [address], [address] [place] [address] pH (U) 7.0 [pH] Normal 5.0-8.5 [facility] Comment on above: Performed By: #### C BCA, PINR, 9, CMP, FEPR, 2276-4, 4-8, 11356-7 #### [facility] ([id number]) [address], [address] [place] [address] Protein Ql (U) 30 mg/dL Abnormal NEG [facility] Comment on above: Performed By: #### C BCA, PINR, 2132-07, CMP, FEPR, 2276-4, 4-8, 32207-5 #### [facility] ([id number]) [address], [address] [place] [address] R.B.CELLS <1 Normal 0-5 [facility] Comment on above: Performed By: #### C BCA, PINR, 2132-07, CMP, FEPR, 6-4, 4-8, 35273-4 #### [facility] ([id number]) [address], [address] [place] [address] Specific gravity (U) [Rel density] 1.016 Normal 1.003-1.035 [facility] Comment on above: Performed By: #### C BCA, PINR, 2132-07, CMP, FEPR, 6-4, 4-8, 69877-5 #### [facility] ([id number]) [address] [address] [place] [address] SQUAMOUS EPITHELIUM 1 /hpf Normal 0-5 [facility] Comment on above: Performed By: #### C BCA, PINR, 2132-07, CMP, FEPR, 2276-4, 4-8, 34544-7 #### [facility] ([id number]) [address], [address] [place] [address] TURBIDITY CLEAR Normal CLEAR [facility] Comment on above: Performed By: #### C BCA, PINR, 2132-07, CMP, FEPR, 2276-4, 2284-8, #### [facility] ([id number]) [address], [address] [place] [address] Urobilinogen (U) [Mass/Vol] mg/dL Normal <1.1 [facility] Comment on above: Performed By: #### C BCA, PINR, 2132-07, CMP, FEPR, 2276-4, 2284-8, 17225-2 #### [facility] ([id number]) [address], [address] [address] W.B.CELLS <1 Normal 0-5 [facility] Comment on above: Performed By: #### C BCA, PINR, 2132-07, CMP, FEPR, 6-4, 4-8, #### [facility] ([id number]) [address], [address] [address] aPTT Coag (PPP) [Time]on aPTT Coag (Bld) [Time] 41 s High 26-37 [facility] Comment on above: Performed By: #### C BCA, PINR, 2132-07, CMP, FEPR, 6-4, 4-8, #### [facility] ([id number]) [address], [address] [address] Anticoagulation - Warfarin V [facility] 05-23-2024 Anticoagulation - Warfarin Visit [id number] Gus Del Cid 1945 M Date Provider Department Center 05/23/2024 RA VALADEZ [facility] No family history on file Normal [facility] Telephoneon 05-23-2024 Telephone [id number] Hussain Del Cid 1945 M Date Provider Department Center 05/23/2024 GeraRA CHAPMAN [facility] No family history on file Normal [facility] Documentationon 05-11-2024 Documentation [id number] Ortega id R 1945 M Date Provider Department [place] 05/11/2024 GeraRA CHAPMAN [facility] No family history on file Reason for Visit and Comments: Anticoagulation [8] Normal [facility] Office Visiton 05-11-2024 Follow-up visit [id number] Hussain Del Cid id R 1945 M Date Provider Department [place] 05/11/[address] [place] [facility] No family history on file Level of Service:04283 [place] OFFICE/OUTPATIENT ESTABLISHED MOD MDM [address] [facility] Telephoneon 05-11-2024 Telephone [id number] Hussain Del Cid id R 1945 M Date Provider Department [place] 05/11/2024 RA [facility]Z [facility] No family history on file [facility] 36on 05-08-2024 36 [facility] but DC to home. INR was 2.0. Left VM msg for pt to return call to discuss [facility] Anticoagulation - Warfarin Visit [id number] Gus Del Cid R 1945 M Date Provider Department Center 05/08/2024 RA [facility]Z [facility] No family history on file [facility] Telephoneon 05-08-2024 Telephone [id number] Hussain Del Cid id R 1945 M Date Provider Department [place] 05/08/2024 KORINA ABBOTT [facility] No family history on file Reason for Visit and Comments: Anticoagulation [8] Normal [facility] CBC AND AUTO DIFFon 05-06-20 ABSOLUTE BASOPHIL 0.0 X10E9/L Normal 0.0-0.2 [facility] Comment on above: Performed By: #### C BCA, PINR, 2132-07, CMP, FEPR, 2276-4, 2284-8, #### [facility] ([id number]) [address], [address] [place] [address] ABSOLUTE NEUTROPHIL 2.3 X10E9/L Normal 1.5-6.6 [facility] Comment on above: Performed By: #### C BCA, PINR, 2132-07, CMP, FEPR, 6-4, 4-8, 40924-5 #### [facility] ([id number]) [address], [address] [place] [address] Basophils/100 WBC (Bld) 0.7 % Normal [facility] Comment on above: Performed By: #### C BCA, PINR, 2132-07, CMP, FEPR, 6-4, 4-8, #### [facility] ([id number]) [address], [address] [place] [address] Eosinophils (Bld) [#/Vol] 0.1 10*3/uL Normal 0.0-0.4 [facility] Comment on above: Performed By: #### C BCA, PINR, 2132-07, CMP, FEPR, 6-4, 4-8, #### [facility] ([id number]) [address], [address] [place] [address] Eosinophils/100 WBC (Bld) 2.0 % Normal [facility] Comment on above: Performed By: #### C BCA, PINR, 2132-07, CMP, FEPR, 6-4, 4-8, 09445-6 #### [facility] ([id number]) [address], [address] [place] [address] Erythrocyte distribution width (RBC) [Ratio] 14.6 % Normal 11.5-15.0 [facility] Comment on above: Performed By: #### C BCA, PINR, 2132-07, CMP, FEPR, 2276-4, 4-8, #### [facility] ([id number]) [address], [address] [place] [address] Hematocrit (Bld) [Volume fraction] 43.1 % Normal 39-49 [facility] Comment on above: Performed By: #### C BCA, PINR, 2132-07, CMP, FEPR, 6-4, 4-8, #### [facility] ([id number]) [address], [facility] [address] [place] [address] Hemoglobin (Bld) [Mass/Vol] 14.3 g/dL Normal 13.0-17.0 [facility] Comment on above: Performed By: #### C BCA, PINR, 2132-07, CMP, FEPR, 6-4, 2283-8, #### [facility] ([id number]) [address], [facility] [address] [place] [address] Lymphocytes (Bld) [#/Vol] 1.0 10*3/uL Normal 1.0-3.5 [facility] Comment on above: Performed By: #### C BCA, PINR, 2132-07, CMP, FEPR, 6-4, 2283-8, #### [facility] ([id number]) [address], [facility] [address] [place] [address] Lymphocytes/100 WBC (Bld) 26.1 % Normal [facility] Comment on above: Performed By: #### C BCA, PINR, 2132-07, CMP, FEPR, 6-4, 2283-8, #### [facility] ([id number]) [address], [address] [place] [address] MCH (RBC) [Entitic mass] 31.2 pg Normal 27-34 [facility] Comment on above: Performed By: #### C BCA, PINR, 2132-07, CMP, FEPR, 6-4, 2283-8, #### [facility] ([id number]) [address], [address] [place] [address] MCHC (RBC) [Mass/Vol] 33.2 g/dL Normal 32-36 [facility] Comment on above: Performed By: #### C BCA, PINR, 2132-07, CMP, FEPR, 6-4, 2283-8, #### [facility] ([id number]) [address], [address] [place] [address] MCV (RBC) [Entitic vol] 94 fL Normal 80-100 [facility] Comment on above: Performed By: #### C BCA, PINR, 2132-07, CMP, FEPR, 2275-4, 2283-, #### [facility] ([id number]) [address], [address] [place] [address] Monocytes (Bld) [#/Vol] 0.4 10*3/uL Normal 0-0.9 [facility] Comment on above: Performed By: #### C BCA, PINR, 2132-07, CMP, FEPR, 2275-4, 2283-, #### [facility] ([id number]) [address], [address] [place] [address] Monocytes/100 WBC (Bld) 10.7 % Normal [facility] Comment on above: Performed By: #### C BCA, PINR, 2132-07, CMP, FEPR, 2275-, 2283-, #### [facility] ([id number]) [address], [address] [place] [address] Neutrophils/100 WBC (Bld) 60.5 % Normal [facility] Comment on above: Performed By: #### C BCA, PINR, 2132-07, CMP, FEPR, 2276-4, 2284-8, 30762-9 #### [facility] ([id number]) [address], [address] [place] [address] Platelet mean volume (Bld) [Entitic vol] 10.0 fL Normal 7-12 [facility] Comment on above: Performed By: #### C BCA, PINR, 2132-07, CMP, FEPR, 2276-4, 2284-8, 11105-9 #### [facility] ([id number]) [address], [address] [place] [address] Platelets (Bld) [#/Vol] 106 10*3/uL Low 150-450 [facility] Comment on above: Performed By: #### C BCA, PINR, 2132-07, CMP, FEPR, 6-4, 2283-8, 67363-3 #### [facility] ([id number]) [address], [address] [place] [address] RBC COUNT 4.59 X10E12/L Normal 4.10-5.70 [facility] Comment on above: Performed By: #### C BCA, PINR, 2132-07, CMP, FEPR, 6-4, 4-8, 98490-0 #### [facility] ([id number]) [address], [address] [place] [address] WBC (Bld) [#/Vol] 3.8 10*3/uL Low 4.0-11.0 [facility] Comment on above: Performed By: #### C BCA, PINR, 2132-07, CMP, FEPR, 2276-4, 4-8, 68492-4 #### [facility] ([id number]) [address], [address] [place] [address] COMPREHENSIVE METABOLIC PANE [place] 05-06-2024 Albumin [Mass/Vol] 3.3 g/dL Normal 3.2-5.3 [facility] Comment on above: Performed By: #### C BCA, PINR, 2132-07, CMP, FEPR, 2276-4, 2284-8, #### [facility] ([id number]) [address], [address] [place] [address] ALP [Catalytic activity/Vol] 37 U/L Low 39-130 [facility] Comment on above: Performed By: #### C BCA, PINR, 2132-07, CMP, FEPR, 2276-4, 4-8, #### [facility] ([id number]) [address], [address] [place] [address] ALT [Catalytic activity/Vol] 11 U/L Normal 0-40 [facility] Comment on above: Performed By: #### C BCA, PINR, 2132-07, CMP, FEPR, 6-4, 4-8, #### [facility] ([id number]) [address], [address] [place] [address] Anion gap [Moles/Vol] 9 mmol/L Normal 5-15 [facility] Comment on above: Performed By: #### C BCA, PINR, 2132-07, CMP, FEPR, 6-4, 4-8, #### [facility] ([id number]) [address], [address] [place] [address] AST [Catalytic activity/Vol] 24 U/L Normal 0-41 [facility] Comment on above: Performed By: #### C BCA, PINR, 2132-07, CMP, FEPR, 2276-4, 4-8, 69582-6 #### [facility] ([id number]) [address], [address] [place] [address] Bilirubin [Mass/Vol] 0.9 mg/dL Normal 0.3-1.2 [facility] Comment on above: Performed By: #### C BCA, PINR, 2132-07, CMP, FEPR, 2276-4, 2284-8, 13639-5 #### [facility] ([id number]) [address], [address] [place] [address] Calcium [Mass/Vol] 9.0 mg/dL Normal 8.5-10.5 [facility] Comment on above: Performed By: #### C BCA, PINR, 2132-07, CMP, FEPR, 2276-4, 2284-8, 96222-2 #### [facility] ([id number]) [address] [place] [address] Chloride [Moles/Vol] 109 mmol/L Normal 98-109 [facility] Comment on above: Performed By: #### C BCA, PINR, 2132-07, CMP, FEPR, 2276-4, 2284-8, #### [facility] ([id number]) [address], [address] [place] [address] CO2 [Moles/Vol] 23 mmol/L Normal 22-32 [facility] Comment on above: Performed By: #### C BCA, PINR, 2132-07, CMP, FEPR, 2276-4, 2284-8, 37302-5 #### [facility] ([id number]) [address] [place] [address] Creatinine [Mass/Vol] 0.98 mg/dL Normal 0.60-1.30 [facility] Comment on above: Result Comment: METH OD TRACEABLE TO IDMS STANDARD Performed By: #### C BCA, PINR, 2132-07, CMP, FEPR, 2276-4, 2284-8, 75503-8 #### [facility] ([id number]) [address] [place] [address] GFR/1.73 sq M.predicted among non-blacks MDRD (S/P/Bld) [Vol rate/Area] 78 mL/min/{1.73_m2} Normal >59 [facility] Comment on above: Result Comment: Reported eGFR is based on the CKD-EPI 2020 equation that does not use a race coefficient. Performed By: #### C BCA, PINR, 2132-07, CMP, FEPR, 6-4, 4-8, #### [facility] ([id number]) [address], [address] [place] [address] Glucose [Mass/Vol] 83 mg/dL Normal 65-99 [facility] Comment on above: Performed By: #### C BCA, PINR, 2132-07, CMP, FEPR, 6-4, 4-8, #### [facility] ([id number]) [address], [address] [place] [address] Potassium [Moles/Vol] 4.3 mmol/L Normal 3.5-5.0 [facility] Comment on above: Result Comment: SPEC IMEN HEMOLYZED, RESULTS INCREASED MODERATELY HEMOLYZED Performed By: #### C BCA, PINR, 2132-07, CMP, FEPR, 6-4, 4-8, #### [facility] ([id number]) [address], [address] [place] [address] Protein [Mass/Vol] 5.7 g/dL Low 6.0-8.0 [facility] Comment on above: Performed By: #### C BCA, PINR, 2132-07, CMP, FEPR, 6-4, 4-8, #### [facility] ([id number]) [address], [address] [place] [address] Sodium [Moles/Vol] 141 mmol/L Normal 134-146 [facility] Comment on above: Performed By: #### C BCA, PINR, 2132-07, CMP, FEPR, 2276-4, 2284-8, 04677-0 #### [facility] ([id number]) [address] [place] [address], [address] [place] [address] Urea nitrogen [Mass/Vol] 16 mg/dL Normal 5-27 [facility] Comment on above: Performed By: #### C BCA, PINR, 2132-07, CMP, FEPR, 2276-4, 2284-8, 49548-1 #### [facility] ([id number]) [address] [place] [address], [address] [place] [address] Clinical Pathology Blood Sme ar Reviewon 05-06-2024 Clinical Pathology Blood Smear Review Normal [facility] Comment on above: Result Comment: [facility] [address] [place] [address] Clinical Pathology Report Patient Name:GUS DEL CID:[id number] (Age: 78)Gender:MTaken:05/06/2024eported:05/08/2024hysician(s):Vinayak Koo M.D.Copy To: Rec. #:[id number]: #[id number] Final Pathologic Diagnosis Peripheral blood smear: Thrombocytopenia. See note. Comment Note: The etiology is not evident from the morphology. This may be due to splenic sequestration, ITP, liver disease, drug or alcohol use, underlying bone marrow disorders, etc. The remainder of the blood smear is essentially unremarkable. Report Electronically Signed Out sps/05/08/2024Angella Chin MD [place] [address], License number: [id number]. Clinical History K92.2 BLOOD SMEAR EVALUATION CBC (05/06/2024 0255): WBC = 3.8 X10E9/L; HGB = 14.3 g/dL; HCT = 43.1%; MCV = 94 fL; PLT = 106 X10E9/L OTHER LAB DATA: Iron saturation = 15%, folate = 15.9 ng/mL, vitamin B12 = 502 pg/mL, occult blood = positive BLOOD SMEAR: Leukocytes: The lymphocytic, monocytic and granulocytic cells are morphologically unremarkable. There is no left shifting, toxic granulation or blasts. Erythrocytes: Normocytic, slight hypochromia. Platelets: Morphologically unremarkable, no clumping. Specimen(s) Received Blood Smear Review Fee Codes(s): 1; 59912 FERRITINon 05-06-2024 Ferritin [Mass/Vol] 166 ng/mL Normal 24-336 [facility] Comment on above: Performed By: #### C BCA, PINR, 2132-07, CMP, FEPR, 2276-4, 2284-8, #### [facility] ([id number]) [address], [address] [place] [address] Folate [Mass/Vol]on 05-06-20 24 FOLIC ACID 15.9 ng/mL Normal >5.8 [facility] Comment on above: Result Comment: NEW REFERENCE RANGE Performed By: #### C BCA, PINR, 2132-07, CMP, FEPR, 6-4, 2283-8, #### [facility] ([id number]) [address], [address] [place] [address] HGB AND HCTon 05-06-2024 Hematocrit (Bld) [Volume fraction] 45.5 % Normal 39-49 [facility] Comment on above: Performed By: #### C BCA, PINR, 2132-07, CMP, FEPR, 2276-4, 4-8, #### [facility] ([id number]) [address], [address] [place] [address] Hemoglobin (Bld) [Mass/Vol] 15.0 g/dL Normal 13.0-17.0 [facility] Comment on above: Performed By: #### C BCA, PINR, 2132-07, CMP, FEPR, 2276-4, 2284-8, #### [facility] ([id number]) [address], [address] [place] [address] IRON PROFILEon 05-06-2024 Iron [Mass/Vol] 43 ug/dL Low 50-212 [facility] Comment on above: Result Comment: SPEC IMEN HEMOLYZED, RESULTS INCREASED MODERATELY HEMOLYZED Performed By: #### C BCA, PINR, 2132-07, CMP, FEPR, 2276-4, 4-8, #### [facility] ([id number]) [address], [address] [place] [address] IRON BINDING 281 ug/dL Normal 250-425 [facility] Comment on above: Performed By: #### C BCA, PINR, 2132-07, CMP, FEPR, 6-4, 2283-8, #### [facility] ([id number]) [address], [address] [place] [address] IRON SATURATION 15 % SATURATION Low 20-50 [facility] Comment on above: Performed By: #### C BCA, PINR, 2132-07, CMP, FEPR, 6-4, 2283-8, #### [facility] ([id number]) [address], [address] [place] [address] MAGNESIUMon 05-06-2024 Magnesium [Mass/Vol] 2.0 mg/dL Normal 1.8-2.6 [facility] Comment on above: Performed By: #### C BCA, PINR, 2132-07, CMP, FEPR, 6-4, 2283-8, #### [facility] ([id number]) [address], [address] [place] [address] PROTIME AND INRon 05-06-2024 INR Coag (PPP) [Relative time] 1.9 {INR} High 0.8-1.1 [facility] Comment on above: Performed By: #### C BCA, PINR, 2132-07, CMP, FEPR, 2276-4, 2284-8, 52068-3 #### [facility] ([id number]) [address] [place] [address], [facility] [address] [place] [address] PT Coag (PPP) [Time] 21.4 s High 9.8-13.2 [facility] Comment on above: Performed By: #### C BCA, PINR, 2132-07, CMP, FEPR, 2276-4, 2284-8, 13602-6 #### [facility] ([id number]) [address] [place] [address], [address] [address] [address] comment (Bld) [Interp]on 05-06-2024 STAFF REVIEW NOTE Normal [facility] Comment on above: Result Comment: [facility] [address] [place] [address] Clinical Pathology Report Patient Name:GUS DEL CID:[id number] (Age: 78)Gender:MTaken:05/06/2024eported:05/08/2024hysician(s):Vinayak Koo M.D.Copy To: Rec. #:[id number]: #[id number] Final Pathologic Diagnosis Peripheral blood smear: Thrombocytopenia. See note. Comment Note: The etiology is not evident from the morphology. This may be due to splenic sequestration, ITP, liver disease, drug or alcohol use, underlying bone marrow disorders, etc. The remainder of the blood smear is essentially unremarkable. Report Electronically Signed Out sps/05/08/2024Angella Chin MD [place] [address], License number: [id number]. Clinical History K92.2 BLOOD SMEAR EVALUATION CBC (05/06/2024 0255): WBC = 3.8 X10E9/L; HGB = 14.3 g/dL; HCT = 43.1%; MCV = 94 fL; PLT = 106 X10E9/L OTHER LAB DATA: Iron saturation = 15%, folate = 15.9 ng/mL, vitamin B12 = 502 pg/mL, occult blood = positive BLOOD SMEAR: Leukocytes: The lymphocytic, monocytic and granulocytic cells are morphologically unremarkable. There is no left shifting, toxic granulation or blasts. Erythrocytes: Normocytic, slight hypochromia. Platelets: Morphologically unremarkable, no clumping. Specimen(s) Received Blood Smear Review Fee Codes(s): 1; 59273 Performed By: #### C BCA, PINR, 2132-07, CMP, FEPR, 2276-4, 2284-8, 34092-0 #### [facility] ([id number]) [address] [place] [address], [address] [place] [address] VITAMIN B12on 05-06-2024 Cobalamin (Vitamin B12) [Mass/Vol] 502 pg/mL Normal 180-914 [facility] Comment on above: Performed By: #### C BCA, PINR, 2132-07, CMP, FEPR, 6-4, 2284-8, 84171-6 #### [facility] ([id number]) [address] [place] [address], [address] [place] [address] C DIFFICILE BY PCRon 024 C. difficile toxin genes STONEY+probe Ql (Stl) TOXIGENIC C DIFF Negative (qualifier value) 027 NAP1 Negative (qualifier value) Normal PRNEG [facility] Comment on above: Performed By: #### P INR, 63887-8 #### [facility] ([id number]) [address] [place] [address] CBC AND AUTO DIFFon 05-05-20 24 ABSOLUTE BASOPHIL 0.0 X10E9/L Normal 0.0-0.2 [facility] Comment on above: Performed By: #### C MP, 3040-3, CBCA #### [facility] ([id number]) [address] [place] [address] ABSOLUTE NEUTROPHIL 2.2 X10E9/L Normal 1.5-6.6 [facility] Comment on above: Performed By: #### C WALDO, 3040-01, CBCA #### [facility] ([id number]) [address] [place] [address] Basophils/100 WBC (Bld) 0.6 % Normal [facility] Comment on above: Performed By: #### C WALDO, 3040-01, CBCA #### [facility] ([id number]) [address] [place] [address] Eosinophils (Bld) [#/Vol] 0.1 10*3/uL Normal 0.0-0.4 [facility] Comment on above: Performed By: #### C WALDO, 3040-01, CBCA #### [facility] ([id number]) [address] [place] [address] Eosinophils/100 WBC (Bld) 1.9 % Normal [facility] Comment on above: Performed By: #### C WALDO, 3040-01, CBCA #### [facility] ([id number]) [address] [place] [address] Erythrocyte distribution width (RBC) [Ratio] 14.4 % Normal 11.5-15.0 [facility] Comment on above: Performed By: #### C WALDO, 3040-01, CBCA #### [facility] ([id number]) [address] [place] [address] Hematocrit (Bld) [Volume fraction] 43.4 % Normal 39-49 [facility] Comment on above: Performed By: #### C WALDO, 3040-01, CBCA #### [facility] ([id number]) [address] [place] [address] Hemoglobin (Bld) [Mass/Vol] 14.2 g/dL Normal 13.0-17.0 [facility] Comment on above: Performed By: #### C WALDO, 3040-01, CBCA #### [facility] ([id number]) [address] [place] [address] Lymphocytes (Bld) [#/Vol] 0.7 10*3/uL Low 1.0-3.5 [facility] Comment on above: Performed By: #### Monica HAAS, 3040-01, CBCA #### [facility] ([id number]) [address] [place] [address] 18720 Lymphocytes/100 WBC (Bld) 20.3 % Normal [facility] Comment on above: Performed By: #### Monica HAAS, 3040-01, CBCA #### [facility] ([id number]) [address] [place] [address] MCH (RBC) [Entitic mass] 30.7 pg Normal 27-34 [facility] Comment on above: Performed By: #### Monica HAAS, 3040-01, CBCA #### [facility] ([id number]) [address] [place] [address] MCHC (RBC) [Mass/Vol] 32.8 g/dL Normal 32-36 [facility] Comment on above: Performed By: #### Monica HAAS, 3040-01, CBCA #### [facility] ([id number]) [address] [place] [address] MCV (RBC) [Entitic vol] 94 fL Normal 80-100 [facility] Comment on above: Performed By: #### Monica HAAS, 3040-01, CBCA #### [facility] ([id number]) [address] [place] [address] Monocytes (Bld) [#/Vol] 0.4 10*3/uL Normal 0-0.9 [facility] Comment on above: Performed By: #### Monica HAAS, 3040-3, CBCA #### [facility] ([id number]) [address] [place] [address] 68958 Monocytes/100 WBC (Bld) 12.2 % Normal [facility] Comment on above: Performed By: #### C WALDO, 0-3, CBCA #### [facility] ([id number]) [address] [place] [address] 16957 Neutrophils/100 WBC (Bld) 65.0 % Normal [facility] Comment on above: Performed By: #### C WALDO, 0-3, CBCA #### [facility] ([id number]) [address] [place] [address] 59957 Platelet mean volume (Bld) [Entitic vol] 9.6 fL Normal 7-12 [facility] Comment on above: Performed By: #### C WALDO, 3040-01, CBCA #### [facility] ([id number]) [address] [place] [address]121 Platelets (Bld) [#/Vol] 81 10*3/uL Low 150-450 [facility] Comment on above: Result Comment: PLAT ELETS REVIEWED Performed By: #### C WALDO, 0-3, CBCA #### [facility] ([id number]) [address] [place] [address] 28560 RBC COUNT 4.64 X10E12/L Normal 4.10-5.70 [facility] Comment on above: Performed By: #### C WALDO, 0-3, CBCA #### [facility] ([id number]) [address] [place] [address] WBC (Bld) [#/Vol] 3.4 10*3/uL Low 4.0-11.0 [facility] Comment on above: Performed By: #### C WALDO, 0-3, CBCA #### [facility] ([id number]) [address] [place] [address] COMPREHENSIVE METABOLIC PANE [place] 05-05-2024 Albumin [Mass/Vol] 3.5 g/dL Normal 3.2-5.3 [facility] Comment on above: Performed By: #### C WALDO, 3040-3, CBCA #### [facility] ([id number]) [address] [place] [address] 28431 ALP [Catalytic activity/Vol] 40 U/L Normal 39-130 [facility] Comment on above: Performed By: #### C WALDO, 3039-3, CBCA #### [facility] ([id number]) [address] [place] [address] 48158 ALT [Catalytic activity/Vol] 20 U/L Normal 0-40 [facility] Comment on above: Performed By: #### Monica HAAS, 3039-3, CBCA #### [facility] ([id number]) [address] [place] [address] 40035 Anion gap [Moles/Vol] 5 mmol/L Normal 5-15 [facility] Comment on above: Performed By: #### C WALDO, 3039-3, CBCA #### [facility] ([id number]) [address] [place] [address] 09570 AST [Catalytic activity/Vol] 20 U/L Normal 0-41 [facility] Comment on above: Performed By: #### C WALDO, 3039-3, CBCA #### [facility] ([id number]) [address] [place] [address] 64741 Bilirubin [Mass/Vol] 0.8 mg/dL Normal 0.3-1.2 [facility] Comment on above: Performed By: #### Monica HAAS, 3040-3, CBCA #### [facility] ([id number]) [address] [place] [address] 24580 Calcium [Mass/Vol] 8.8 mg/dL Normal 8.5-10.5 [facility] Comment on above: Performed By: #### Monica HAAS, 3040-01, CBCA #### [facility] ([id number]) [address] [place] [address] 53194 Chloride [Moles/Vol] 111 mmol/L High 98-109 [facility] Comment on above: Performed By: #### Monica HAAS, 3040-01, CBCA #### [facility] ([id number]) [address] [place] [address] 18023 CO2 [Moles/Vol] 21 mmol/L Low 22-32 [facility] Comment on above: Performed By: #### Monica HAAS, 3040-01, CBCA #### [facility] ([id number]) [address] [place] [address] 72785 Creatinine [Mass/Vol] 1.39 mg/dL High 0.70-1.20 [facility] Comment on above: Result Comment: METH OD TRACEABLE TO IDMS STANDARD Performed By: #### Monica HAAS, 3040-01, CBCA #### [facility] ([id number]) [address] [place] [address] 18969 GFR/1.73 sq M.predicted among non-blacks MDRD (S/P/Bld) [Vol rate/Area] 51 mL/min/{1.73_m2} Low >59 [facility] Comment on above: Result Comment: Reported eGFR is based on the CKD-EPI 2020 equation that does not use a race coefficient. Performed By: #### Monica HAAS, 3, CBCA #### [facility] ([id number]) [address] [place] [address] 53052 Glucose [Mass/Vol] 139 mg/dL High 65-99 [facility] Comment on above: Performed By: #### Monica HAAS, 3040-3, CBCA #### [facility] ([id number]) [address] [place] [address] 67616 Potassium [Moles/Vol] 3.6 mmol/L Normal 3.5-5.0 [facility] Comment on above: Performed By: #### C WALDO, 3040-3, CBCA #### [facility] ([id number]) [address] [place] [address] 81196 Protein [Mass/Vol] 6.5 g/dL Normal 6.0-8.0 [facility] Comment on above: Performed By: #### C WADLO, 3040-3, CBCA #### [facility] ([id number]) [address] [place] [address] 13688 Sodium [Moles/Vol] 137 mmol/L Normal 134-146 [facility] Comment on above: Performed By: #### C WALDO, 3040-3, CBCA #### [facility] ([id number]) [address] [place] [address] 40554 Urea nitrogen [Mass/Vol] 26 mg/dL Normal 5-27 [facility] Comment on above: Performed By: #### C WALDO, 3040-3, CBCA #### [facility] ([id number]) [address] [place] [address] ABDOMEN AND PELVIS W CONT on 05-05-2024 CT ABDOMEN AND PELVIS W CONT CT ABDOMEN AND PELVIS W CONT CLINICAL HISTORY: Abdominal trauma. Patient fell. Bruising. CT ABDOMEN AND PELVIS WITH CONTRAST: 124 PROCEDURE: Axial images were obtained through the abdomen and pelvis after oral contrast ingestion and 100 mL Omnipaque 300 intravenously. Coronal and sagittal reconstructions were performed. All CT scans at this facility use dose modulation, iterative reconstruction, and/or weight based dosing when appropriate to reduce radiation dose to as low as reasonably achievable. FINDINGS : Visualized lung bases are clear. A moderate hiatal hernia is present. No focal hepatic or splenic abnormality is present. The pancreas, adrenal glands, and biliary tree appear within normal limits. The kidneys enhance symmetrically. There is a cyst in the right inferior pole. No pelvocaliectasis or ureteral dilation is evident. The urinary bladder is grossly within normal limits. Diverticula are present throughout the descending and sigmoid colon. No dilated bowel loops are present. There is no extraluminal gas or fluid. There is no acute osseous abnormality. Degenerative changes are present in the lower lumbar spine. No displaced rib fractures evident. There is an abdominal aortic aneurysm measuring 7 cm in length with maximal diameter 5.1 cm. Peripheral thrombus is present. A 3.5 cm aneurysm is present at the right common iliac. There is low density within the left common femoral artery. IMPRESSION: 1. No acute intra-abdominal or pelvic abnormality on CT evaluation. 2. 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 3. Possible thrombus within the left common femoral artery. Finalized by Erlin Gasca MD on 05/05/2024 8:07 AM Normal [facility] CT CTA ABD AORTA W RUNOFFon 05-05-2024 CT CTA ABD AORTA W RUNOFF CT CTA ABD AORTA W RUNOFF CTA of the abdomen and pelvis and runoff of both lower extremities with 3-D reformats INDICATION: Arterial embolism of the lower extremity. Ischemia, peripheral vascular disease.. PROCEDURE: Automatic radiation exposure lowering techniques were utilized. Following the intravenous injection of 100 mL of Omnipaque 350, a CTA of the abdomen and pelvis and runoff of both lower extremities with 3-D reformats, including 3 -D Maximum intensity projection reconstructions constructed under concurrent physician supervision on a independent workstation . 3 D images obtained to improve visualization of vascular detail. All CT scans at this facility use dose modulation, iterative reconstruction, and/or weight based dosing when appropriate to reduce radiation dose to as low as reasonably achievable. FINDINGS: Comparison is prior examination from the same day. Abdominal findings were described on the CT from earlier today. Redemonstration of abdominal aortic aneurysm with large amount of mural thrombus the aneurysm measures 5.1 x 5 cm. Patent celiac, SMA, and KATHYA. Patent bilateral renal arteries. There is an aneurysm of the right common iliac artery with mural thrombus, the aneurysm sac measures 3.4 cm; the left common iliac artery measures 1.7 cm. There is atherosclerotic disease and mild narrowing of the external iliac arteries bilaterally. Right lower extremity runoff: Patent common femoral artery and profunda. Occluded SFA and reconstitution at the adductor hiatus. Patent popliteal artery with three-vessel runoff obscured by calcific plaques. Left lower extremity runoff: Occluded common femoral artery and profunda origin; patent bypass from the common femoral artery to the popliteal artery which is patent. Patent posterior tibial artery and peroneal arteries and occlusions in the anterior tibial arteries; the runoff vessels are obscured by calcified plaques. IMPRESSION: 1. Abdominal aortic aneurysm measuring 5.1 cm. 2. 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 3. Occlusion of the right SFA. 4. Occlusion of the left common femoral artery and left SFA. 5. Patent left femoral-popliteal bypass graft. 6. The runoff vessels are obscured by calcified plaques. Finalized by Daisy Crow MD on 05/05/2024 11:34 AM Normal [facility] FECAL OCCULT BLOODon 024 Hemoglobin.gastrointe stinal Ql (Stl) Positive Abnormal NEG [facility] Comment on above: Performed By: #### P INR, 96183-9 #### [facility] ([id number]) [address] [place] [address], [place] [address] GI PANELon 05-05-2024 Gastrointestinal pathogens DNA and RNA panel STONEY+non-probe (Stl) SPECIMEN SOURCE STOOL CAMPYLOBACTER Detected (qualifier value) Detects the following: C. jejuni, C. coli, C. upsaliensis PLESIOMONAS Not detected (qualifier value) SALMONELLA Not detected (qualifier value) VIBRIO Not detected (qualifier value) VIBRIO CHOLERAE Not detected (qualifier value) Y. ENTEROCOLITICA Not detected (qualifier value) AGGREGATIVE E COLI Not detected (qualifier value) PATHOGENIC E COLI Not detected (qualifier value) TOXIGENIC E COLI Not detected (qualifier value) SHIGA TOXIN E COLI Not detected (qualifier value) SHIGELLA-E COLI Not detected (qualifier value) CRYPTOSPORIDIUM Not detected (qualifier value) CYCLOSPORA Not detected (qualifier value) E HISTOLYTICA Not detected (qualifier value) GIARDIA LAMBLIA Not detected (qualifier value) ADENOVIRUS Not detected (qualifier value) ASTROVIRUS Not detected (qualifier value) NOROVIRUS Not detected (qualifier value) ROTAVIRUS A Not detected (qualifier value) SAPOVIRUS Not detected (qualifier value) Normal NDET [facility] Comment on above: Performed By: #### P INR, 65511-5 #### [facility] ([id number]) [address] [place] [address] 21496 Glucose Glucometer (BldC) [M ass/Vol]on 05-05-2024 Glucose [Mass/Vol] 97 mg/dL Normal 65-99 [facility] HGB AND HCTon 05-05-2024 Hematocrit (Bld) [Volume fraction] 46.8 % Normal 39-49 [facility] Comment on above: Performed By: #### H H #### [facility] ([id number]) [address], [address] [place] [address] Hemoglobin (Bld) [Mass/Vol] 15.7 g/dL Normal 13.0-17.0 [facility] Comment on above: Performed By: #### H H #### [facility] ([id number]) [address], [address] [place] [address] LIPASEon 05-05-2024 Lipase [Catalytic activity/Vol] 31 U/L Normal 17-40 [facility] Comment on above: Performed By: #### C MP, 3040-3, CBCA #### [facility] ([id number]) [address] [place] [address]265 ALEJANDRO FECAL OCCULT BLDon 05-05 Hemoglobin.gastrointe stinal Ql (Stl) Negative Normal NEG [facility] Comment on above: Performed By: #### 2 335-8 #### [facility] ([id number]) [address] [place] [address]5840 PROTIME AND INRon 05-05-2024 INR Coag (PPP) [Relative time] 2.0 {INR} High 0.8-1.1 [facility] Comment on above: Performed By: #### P INR, 95179-0 #### [facility] ([id number]) [address] [place] [address]37 PT Coag (PPP) [Time] 22.2 s High 9.8-13.2 [facility] Comment on above: Result Comment: NEW REFERENCE RANGE Performed By: #### P INR, 36095-7 #### [facility] ([id number]) [address] [place] [address] 69721 Telephoneon 05-05-2024 Telephone [phone] Hussain Del Cid id R [id number] M Date Provider Department Center 05/05/2024 RA VALADEZ [facility] No family history on file Normal [facility] URN MACROSCOPIC NURon 2023 BILIRUBIN ALEJANDRO Negative Normal NEG [facility] Comment on above: Performed By: #### N UM #### [facility] ([id number]) [address] [place] [address] 74735 BLOOD/HGB ALEJANDRO Trace Abnormal NEG [facility] Comment on above: Performed By: #### N UM #### [facility] ([id number]) [address] [place] [address] 13396 GLUCOSE ALEJANDRO >=1000 Abnormal NEG [facility] Comment on above: Performed By: #### N UM #### [facility] ([id number]) [address] [place] [address] 45459 KETONES ALEJANDRO Negative Normal NEG [facility] Comment on above: Performed By: #### N UM #### [facility] ([id number]) [address] [place] [address] 77259 LEUKOCYTE ESTERASE ALEJANDRO Negative Normal NEG [facility] Comment on above: Performed By: #### N UM #### [facility] ([id number]) [address] [place] [address] 43861 NITRITE ALEJANDRO Negative Normal NEG [facility] Comment on above: Performed By: #### N UM #### [facility] ([id number]) [address] [place] [address] 19392 PH ALEJANDRO 6.0 Normal 5.0-8.5 [facility] Comment on above: Performed By: #### N UM #### [facility] ([id number]) [address] [place] [address] 16600 PROTEIN ALEJANDRO 30 mg/dL Abnormal NEG [facility] Comment on above: Performed By: #### N UM #### [facility] ([id number]) [address] [place] [id number] SPECIFIC GRAVITY ALEJANDRO 1.010 Normal 1.003-1.035 Pro [facility] Comment on above: Performed By: #### N UM #### [facility] ([id number]) [address] [place] [address] [id number] UROBILINOGEN ALEJANDRO 0.2 eu/dL Normal <1.1 [facility] Comment on above: Performed By: #### N UM #### [facility] ([id number]) [address] [place] [address] [id number] XR CHEST 1 VWon 05-05-2024 XR CHEST 1 VW XR CHEST 1 VW Clinical history: Cough diarrhea with left flank pain Views: 1 Comparison: 10/14/2020 Findings/Impression: 1. Lower lobe atelectasis. Upper lungs are clear. No pneumothorax or large effusion. 2. Cardiomegaly similar to the previous exam. Vasculature stable. 3. Hiatal hernia. 4. No new nor advancing abnormality. Finalized by Filiberto Romero MD on 05/05/2024 7:44 AM Normal [facility] aPTT Coag (PPP) [Time]on aPTT Coag (Bld) [Time] 33 s Normal 26-37 [facility] Comment on above: Result Comment: NEW REFERENCE RANGE Performed By: #### P INR, [id number] #### [facility] ([id number]) [address] [facility], [place] [address] Anticoagulation - Warfarin V [facility] 04-20-2024 Anticoagulation - Warfarin Visit [id number] BrittniGus R 1945 M Date Provider Department Center 04/20/2024 RA VALADEZ [facility]ICOAG [facility] No family history on file Normal [facility] Telephoneon 04-19-2024 Telephone [id number] Hussain Del Cid id R 1945 M Date Provider Department Center 04/19/2024 RA VALADEZ [facility] No family history on file Normal [facility] Anticoagulation - Warfarin V [facility] 03-16-2024 Anticoagulation - Warfarin Visit [id number] Gus Del Cid 1945 M Date Provider Department Center 03/16/2024 RA VALADEZ [facility] No family history on file Normal [facility] 36on 03-01-2024 36 Vm MSG left for pt call back to assess. Assessment completed with pt Normal [facility] Telephoneon 03-01-2024 Telephone [id number] Hussain Del Cid id R 1945 Provider Department Center 03/01/2024 [id number] BRYANT [facility]ICO[facility] No family history on file Reason for Visit and Comments: Anticoagulation [8] Normal [facility] Anticoagulation - Warfarin V [facility] 02-29-2024 Anticoagulation - Warfarin Visit [id number] Gus Del Cid R 1945 M Date Provider Department Center 02/29/202451389-NERBFEFLAKITO GIBSON HVCANTICOAG [facility] No family history on file Normal [facility] Telephoneon 02-28-2024 Telephone [id number] CaneloHussain merrill id R 1945 Date Provider Department Center 02/28/2024 RA VALADEZ [facility] No family history on file Normal [facility] Anticoagulation - Warfarin V [facility] 02-11-2024 Anticoagulation - Warfarin Visit [id number] Gus Del Cid R 1945 M Date Provider Department Center 02/11/2024 [id number] ANTI IN PERSON [facility]ANTICOAG [facility] No family history on file Normal [facility] Telephoneon 02-02-2024 Telephone [id number] Canelogarfield,Hussain id R 1945 M Date Provider Department Center 02/02/2024 BRYANT FLYNN [facility] No family history on file Normal [facility] Telephoneon 02-01-2024 Telephone [id number] BrittniHussain id R 1945 M Date Provider Department Center 02/01/2024 [id number] LOPEZ [facility]VCANTICOAG [facility] No family history on file Normal [facility] Anticoagulation - Warfarin V [facility] 01-31-2024 Anticoagulation - Warfarin Visit [id number] Gus Del Cid 1945 M Date Provider Department Center 01/31/2024 BRYANT FLYNN [facility] No family history on file Normal [facility] Telephoneon 01-28-2024 Telephone [id number] BrittniHussain id R 1945 M Date Provider Department Center 01/28/2024 VernellBRYANT FRAUSTO [facility]ICO[facility] No family history on file Normal [facility] Anticoagulation - Warfarin V [facility] 01-13-2024 Anticoagulation - Warfarin Visit [id number] Gus Del Cid 1945 M Date Provider Department Center 01/13/2024 RA VALADEZ [facility] No family history on file Normal [facility] Documentationon 01-13-2024 Documentation [id number] BrittniHussain id R 1945 M Date Provider Department Center 01/13/2024 RA VALADEZ [facility] No family history on file Reason for Visit and Comments: Anticoagulation [8] Normal [facility] Anticoagulation - Warfarin V [facility] 12-30-2023 Anticoagulation - Warfarin Visit [id number] Gus Del Cid 1945 M Date Provider Department Center 12/30/2023 AlconERMELINDARA HVCANTICOAG [facility] No family history on file Normal [facility] ALL CBC WITH AUTO DIFFon BASOPHILS ABSOLUTE AUTO 0.0 [facility] Basophils/100 WBC (Bld) 0.6 % 0.2 - 2.0 % [facility] Eosinophils/100 WBC (Bld) 1.3 % 0.9 - 7.0 % [facility] Erythrocyte distribution width (RBC) [Ratio] 14.2 % 11.0 - 15.0 % [facility] Hematocrit (Bld) [Volume fraction] 47.7 % 42.0 - 54.0 % [facility] Hemoglobin (Bld) [Mass/Vol] 15.2 g/dL 14.0 - 18.0 g/dL [facility] IMMATURE GRANULOCYTES ABS AUTO 0.01 [facility] Immature granulocytes/100 WBC (Bld) 0.2 % 0.0 - 0.5 % [facility] Interpretation and review of laboratory results Abnormal [facility] LYMPHOCYTES ABSOLUTE AUTO 1.4 [facility] Lymphocytes/100 WBC (Bld) 27.0 % 20.5 - 60.0 % [facility] MCH (RBC) [Entitic mass] 30.8 pg 25.9 - 34.0 pg [facility] MCHC (RBC) [Mass/Vol] 31.9 g/dL 29.9 - 35.2 g/dL [facility] MCV (RBC) [Entitic vol] 96.8 fL High 80.0 - 94.0 fL [facility] MONOCYTES ABSOLUTE AUTO 0.4 [facility] Monocytes/100 WBC (Bld) 7.7 % 1.7 - 12.0 % [facility] NEUTROPHILS ABSOLUTE AUTO 3.4 [facility] Neutrophils/100 WBC (Bld) 63.2 % 43.0 - 75.0 % [facility] Platelet mean volume (Bld) [Entitic vol] 11.8 fL 9.5 - 13.5 fL [facility] TBH EO # 0.1 [facility] TBH PLT 130 Low [facility] RBC 4.93 [facility] TB WBC 5.3 [facility] ALL LIPID PROFILE (FASTING)o n 12-22-2023 CHOL HDL RATIO 2.8 [facility] Comment on above: 3.3 - 4.4 LOW RISK 4.4 - 7.1 AVERAGE RISK 7.1 - 11.0 MODERATE RISK >11.0 HIGH RISK Cholesterol [Mass/Vol] 130 mg/dL NINF - 200 mg/dL [facility] Cholesterol in HDL [Mass/Vol] 46 mg/dL 40 - 60 mg/dL [facility] Comment on above: > or =60 mg/dl - LOW CARDIOVASCULAR RISK <40 mg/dl - HIGH CARDIOVASCULAR RISK Magnesium [Mass/Vol] 66.4 mg/dL [facility] Comment on above: <100 mg/dl OPTIMAL 100-129 mg/dl NEAR OR ABOVE OPTIMAL 130-159 mg/dl BORDERLINE HIGH 160-189 mg/dl HIGH >190 mg/dl VERY HIGH Magnesium [Mass/Vol] 17.6 mg/dL [facility] Triglyceride [Mass/Vol] 88 mg/dL NINF - 150 mg/dL [facility] CCF CMP (CMP) (FOR REMOTE FH C USE)on 12-22-2023 Albumin [Mass/Vol] 3.5 g/dL 3.4 - 5.0 g/dL [facility] ALBUMIN GLOBULIN RATIO 1.1 [facility] ALP [Catalytic activity/Vol] 38 U/L Low 46 - 116 U/L [facility] ALT [Catalytic activity/Vol] 16 U/L 16 - 63 U/L [facility] Anion gap [Moles/Vol] 10.5 mmol/L [facility] AST [Catalytic activity/Vol] 17 U/L 15 - 37 U/L [facility] Bilirubin [Mass/Vol] 0.6 mg/dL 0.2 - 1 .0 mg/dL [facility] Calcium [Mass/Vol] 9.7 mg/dL 8.5 - 10. 1 mg/dL [facility] Chloride [Moles/Vol] 107 mmol/L 98 - 10 7 mmol/L [facility] CO2 [Moles/Vol] 27.5 mmol/L 21.0 - 32.0 mmol/L [facility] Creatinine [Mass/Vol] 1.28 mg/dL 0.70 - 1.30 mg/dL [facility] GFR/1.73 sq M.predicted CKD-EPI (S/P/Bld) [Vol rate/Area] >60 60 - PINF [facility] Globulin (S) [Mass/Vol] 3.3 g/dL [facility] Glucose [Mass/Vol] 123 mg/dL High 74 - 106 mg/dL [facility] Interpretation and review of laboratory results Abnormal [facility] Potassium [Moles/Vol] 5.0 mmol/L 3.5 - 5.1 mmol/L [facility] Protein [Mass/Vol] 6.8 g/dL 6.4 - 8.2 g/dL [facility] Sodium [Moles/Vol] 140 mmol/L 136 - 145 mmol/L [facility] TBH EGFR-NON AF NEPALESE 54 Low 60 - PINF [facility] Urea nitrogen [Mass/Vol] 26.0 mg/dL High 7.0 - 18.0 mg/dL [facility] Urea nitrogen/Creatinine [Mass ratio] 20.3 mg/mg [facility] No Panel Informationon 12-22 [facility] Orders Onlyon 12-20-2023 Orders Only [id number] BrittniHussain cindy R 1945 M Date Provider Department Center 12/20/2023 LOREN BROCK MADISON [facility] No family history on file [facility] Anticoagulation - Warfarin V isiton 12-17-2023 Anticoagulation - Warfarin Visit [id number] CaneloGus merrill R 1945 M Date Provider Department Center 12/17/2023 RA VALADEZ [facility] No family history on file [facility] Office Visiton 12-17-2023 Follow-up visit [id number] Hussain Del Cid id R 1945 M Date Provider Department Center 12/17/2023 MIRI RESTREPO MADISON [facility] No family history on file Level of Service:08149 [place] OFFICE/OUTPATIENT ESTABLISHED MOD MDM [address] [facility] Telephoneon 12-17-2023 Telephone [id number] Hussain Del Cid id R 1945 Date Provider Department Center 12/17/2023 RA VALADEZ [facility] No family history on file Reason for Visit and Comments: Anticoagulation [8] Normal [facility] ECHOon 06-09-2023 Echocardiography Echocardiography Report: Transthoracic Echo [facility] [id number] Date of service: 06/09/2023 7:55:13 AM [employer]OP SUPERVISOR Ordering physician: FILIPPO ZARATE Indication: Sustained atrial fibrillation Technologist: Chhaya Sellers Fellow: Vinayak Magallanes MD Interpreting physician: Al Maldonado MD PATIENT: Name: MR. GUS DEL CID : 1945 Age: 77 years Gender: M History of cardiomyopathy, arrhythmia, coronary artery disease, hypertension and diabetes mellitus. Previous cardiovascular interventions: PCI (2019) Other pacemaker implant (12/2002, 02/2014) Primary rhythm: V. Paced. Height: 180.30 cm BSA: 2.09 m Weight: 87.09 kg BMI: 26.8 kg/m Heart rate 44 bpm Blood pressure 155/93 mmHg Color Doppler was utilized to interrogate the cardiac valves assessed and spectral Doppler was utilized to determine the flow velocities and pressure gradients reported in this exam. MEASUREMENTS: Value Indexed Normal Max aortic dimension 4.0 cm Ao < 3.8 Left atrial volume 119 ml (biplane A-L) 57 ml/m Jessika <= 34 LV ID (diastole) 4.5 cm (2D) 2.15 cm/m LV ID (systole) 3.6 cm (2D) 1.72 cm/m IVS, leaflet tips 1.3 cm (2D) Posterior wall thickness 1.0 cm (2D) Left ventricular mass 186 g (2D) 89 g/m LV stroke volume 62 ml (2D biplane) LV end diastolic volume 114 ml (2D biplane) 54.5 ml/m 34<=EDVi<75 LV end systolic volume 52 ml (2D biplane) 25.0 ml/m Ejection Fraction 54 % (2D biplane) EF > 52 FINDINGS: LEFT VENTRICLE The left ventricle is normal in size. There is left ventricular hypertrophy. Left ventricular systolic function is normal. Left ventricular diastolic function was not evaluated due to pacing. Wall Motion: The basal inferolateral segment is severely hypokinetic. The mid inferolateral segment and basal inferior segment are mildly hypokinetic. All remaining scored segments are normal. RIGHT VENTRICLE The right ventricle is dilated. Pacer wires are noted in the right ventricle. Right ventricular systolic function is normal. RV systolic tissue Doppler velocity is 11.6 cm/s. Tricuspid annular displacement is 2.0 cm. Estimated right ventricular systolic pressure is 54 mmHg consistent with moderate pulmonary hypertension. Estimated right atrial pressure is 8 mmHg based on IVC assessment. LEFT ATRIUM The left atrial cavity is severely dilated. RIGHT ATRIUM The right atrial cavity is normal in size. Pacer wires are noted in the right atrium. Inferior Vena Cava: The inferior vena cava appears dilated measuring 2.2 cm. The vessel decreases greater than 50 percent with inspiration. MITRAL VALVE There is mild (1+) mitral valve regurgitation. There is mild thickening. TRICUSPID VALVE There is moderate (2+ - 3+) tricuspid valve regurgitation. There is no thickening. AORTIC VALVE There is trace aortic valve regurgitation. Tricuspid aortic valve. There is mild thickening. There is mild calcification. The peak gradient is 6 mmHg (peak velocity = 119.0 cm/s). PULMONIC VALVE The pulmonic valve cusps are structurally normal. There is trace pulmonic valve regurgitation. AORTA The visualized aorta is borderline dilated. Measurements - Sinus: 4.0 cm. Sinotubular junction 2.5 cm. Mid ascending aorta 3.1 cm. Distal ascending aorta 3.3 cm. PULMONARY ARTERIES The pulmonary arteries are unseen or not interrogated. INTERATRIAL SEPTUM There is no evidence of intracardiac shunting as detected by Doppler. INTERVENTRICULAR SEPTUM There is abnormal motion of the interventricular septum secondary to abnormal conduction. PERICARDIUM There is no pericardial effusion. There is an epicardial fat pad. CONCLUSIONS: - Exam indication: Sustained atrial fibrillation - The left ventricle is normal in size. There is left ventricular hypertrophy. Left ventricular systolic function is normal. EF = 54 5% (2D biplane) Regional wall motion abnormalities as described. Clips 43, 55 - The right ventricle is dilated. Right ventricular systolic function is normal. - The left atrial cavity is severely dilated. - The visualized aorta is borderline dilated with a maximal dimension of 4.0 cm. - There is moderate (2+ - 3+) tricuspid valve regurgitation. - Estimated right ventricular systolic pressure is 54 mmHg consistent with moderate pulmonary hypertension. Estimated right atrial pressure is 8 mmHg based on IVC assessment. - The patient has not had a prior CC echocardiographic exam for comparison. * * * Final * * * CC [email or web address] Medical Image : [id number] Normal [facility] CARDIAC PERF STRESS/PHARM on 06-09-2023 NM CARDIAC PERF STRESS/PHARM * * *Final Report* * * DATE OF EXAM: Jun 09 2023 12:03PM [facility] 0006 - NM CARDIAC PERF STRESS/PHARM / PROCEDURE REASON: multiple diagnoses * * * * Physician Interpretation * * * * Stress Collections Officer Report: [facility] ALON-2 Date of service: 06/09/2023 10:06:44 AM Supervising physician: Annalise Britton MD PATIENT: Name: MR. GUS DEL CID Age: 77 years Gender: M The supervising physician was in the department and immediately available. * * * Final * * * ------ PATIENT: Name: MR. GUS DEL CID Age: 77 years Gender: M CONCLUSIONS: 1. SPECT Perfusion Study: Abnormal. 2. There is mild (<10%) ischemia in the territory of the LCX (lateral). 3. There is a small (<10%) fixed perfusion defect in the LCX territory (lateral). 4. Left ventricle is normal in size. The left ventricle systolic function is normal. 5. This is an intermediate risk scan due to area of scar/ischemia. 6. Right ventricle is normal in size. The right ventricle systolic function is normal. Gated Rest FBP LVEF % 67 Prior Study Comparison No prior nuclear cardiology exam available for comparison. Nuclear Med Report:1-Day Gated SPECT Myocardial Perfusion with Regadenoson Stress: Myocardial perfusion imaging was performed at rest 30 minutes following the IV injection of the radiotracer. The patient received 0.4 mg of regadenoson, via rapid IV push, immediately followed by radiotracer IV. Gated post stress tomographic imaging was performed 30 to 60 minutes later. See administered radiotracer and doses below. [facility] Date of service: 06/09/2023 10:06:44 AM Ordering Physician: FILIPPO ZARATE. Requesting Physician: FILIPPO ZARATE Indication: Worsening known CAD: re-evaluation of medically managed patients Fellow: Chito Sr MD Interpreting physician: Annalise Britton MD Previous Cardiovascular Interventions: BIV pacemaker implant (01/04/2003, 02/13/2014) CABG (06/2020) PCI (11/12/2020) Height: 180.34 cm BSA: 2.09 m? Weight: 87.09 kg BMI: 26.8 kg/m? Imaging Protocol Limitation Reason Patient motion and scaling artifact. CT Dose-Length Product(DLP): 18.0 mGy * cm. CT Dose Reduction Employed: Yes. Exam Type: Rest Stress Radiopharm: Tc-99m Tetrofosmin Tc-99m Tetrofosmin Dosage(mCi): 13.0 30.4 Atten Correction: performed Stress Agent: Regadenoson 0.4mg Supply provided from [facility] Resting Blood Press: 108/74 mmHg Image Quality The overall study imaging quality was deemed to be good. The following technical issues were noted: Patient motion and scaling artifact. FINDINGS: Stress IR:3D Gated Stress FBP Gated Rest FBP LVEF: 70 % 67 % ED Volume: 109 ml 117 ml ES Volume: 33 ml 39 ml TID: 1.10 Perfusion Findings Stress IR:3D - Summed Score=9 There is a severe perfusion defect in the posterior wall. There is a mild perfusion defect in the genaro-lateral wall and apical lateral segment. All remaining scored segments show normal perfusion. Rest IR:3D - Summed Score=5 There is a severe perfusion defect in the basal inferolateral segment. There is a moderate perfusion defect in the mid inferolateral segment. All remaining scored segments show normal perfusion. Stress IR:3D Rest IR:3D Summed Score=9 Summed Score=5 LEFT VENTRICLE The left ventricle is normal in size. Left ventricular systolic function is normal. Right Ventricle The right ventricle is unseen or not interrogated. The right ventricle is normal in size. Right ventricle systolic function is normal. * * * Final * * * ------ NM CTAC Report: [facility] Date of service: 06/09/2023 10:06:44 AM CTAC interpreting physician: Annalise Britton MD PATIENT: Name: MR. GUS DEL CID Age: 77 years Gender: M 1. Incidental Findings from limited non-diagnostic CTAC: - Coronary calcifications visualized. * * * Final * * * ------ Stress ECG Report: [facility] ALON-2 Date of service: 06/09/2023 10:06:44 AM Ordering physician: FILIPPO ZARATE training specialist: Cammie French Mower Sharpener: Angella Velez Fellow: Chito Sr MD Interpreting physician: Annalise Britton MD Patient name: MR. GUS DEL CID Age: 77 years Gender: M Height: 180.34 cm BSA: 2.09 m? Weight: 87.09 kg BMI: 26.8 kg/m? Indication: Dyspnea on exertion, Chest pressure / Chest tightness and Palpitations Stress ECG Conclusion: Conclusion: Normal Stress ECG Summary: The patient's resting (more content not included)... [facility] Telephone (CARDMN) CANELOGUS Merrill ([id number]) 1945 M Date Time Provider Department 06/02/23 FILIPPO ZARATE During your visit today, we recorded the following information about you: Jenelle Levine 06/02/2023 4:01 PM Signed Documentation scanned into EP outside database Allergies As of Date: 06/02/2023 Noted Allergy Reaction MORPHINE 07/05/2020 16 - Unknown DEXTROAMPHETAMINE 09/25/2009 16 - Unknown ATORVASTATIN 11/02/2014 14 - Other: See Comments 16 - Unknown Comments: Other Reaction(s): Pain Date Reviewed: 05/24/2023 Reviewed by: Stefanie Mar RN - Fully Assessed Reason for Visit: Received Outside Medical Records [[id number]] Prescriptions as of 06/02/2023 - amLODIPine (NORVASC) 5 mg tablet Take 5 mg by mouth every morning. - clopidogrel (PLAVIX) 75 mg tablet Take 75 mg by mouth every morning. - JARDIANCE 10 mg tablet - metoprolol succinate ER (TOPROL XL) 100 mg Take 100 mg by mouth twice daily. - omeprazole (PRILOSEC) 40 mg capsule Take 1 capsule by mouth once daily. - rosuvastatin (CRESTOR) 5 mg tablet Take 5 mg by mouth daily at bedtime. - sacubitril-valsartan (ENTRESTO) 97-103 mg tablet Take 1 tablet twice a day by oral route for 90 days. - spironolactone (ALDACTONE) 25 mg tablet Take 25 mg by mouth every morning. - warfarin (COUMADIN) 3 mg tablet TAKE 1 TO 1 AND 1/2 (ONE TO ONE AND ONE-HALF) TABLETS BY MOUTH ONCE DAILY DIRECTED - doxycycline monohydrate (MONODOX) 100 mg capsule TAKE 1 CAPSULE BY MOUTH TWICE DAILY FOR 14 DAYS (MORNING AND BEDTIME). TAKE WITH AT LEAST 8OZ OF WATER. DO NOT LIE DOWN FOR 30 MINUTES AFTER. Facility-Administered Medications as of 06/02/2023 - perflutren lipid microspheres 1.3 mL in NaCl (PF) 0.9% 10 mL injection (DEFINITY) - sodium chloride 0.9 % (flush) 10 mL (BD POSIFLUSH) Problem List As Of Date: 06/02/2023 (None) Encounter Status:Closed by JENELLE LEVINE on 06/02/23 [facility] 05-27-2023 CHELON Telephone (CARDMN) PROFITTGUS ([id number]) 1945 M Date Time Provider Department 05/27/23 FILIPPO ZARATE During your visit today, we recorded the following information about you: Jeaneth Duncan RN 05/27/2023 5:45 PM Signed Spoke with outside clinics that have recently interrogated patient's pacemaker ([facility] and [place]). Most recent interrogation at [facility] was on 04/06/23 and shows a battery estimate of <3 months (not yet triggered LEOBARDO). The underlying rhythm was Sinus Bradycardia (with intact conduction) and RV pacing percentage 9.4%. Attempting to obtain a copy of this report from [facility]. Allergies As of Date: 05/27/2023 Noted Allergy Reaction MORPHINE 07/05/2020 16 - Unknown DEXTROAMPHETAMINE 09/25/2009 16 - Unknown ATORVASTATIN 11/02/2014 14 - Other: See Comments 16 - Unknown Comments: Other Reaction(s): Pain Date Reviewed: 05/24/2023 Reviewed by: Stefanie Mar RN - Fully Assessed Reason for Visit: Results [95] Prescriptions as of 05/27/2023 - amLODIPine (NORVASC) 5 mg tablet Take 5 mg by mouth every morning. - clopidogrel (PLAVIX) 75 mg tablet Take 75 mg by mouth every morning. - JARDIANCE 10 mg tablet - metoprolol succinate ER (TOPROL XL) 100 mg Take 100 mg by mouth twice daily. - omeprazole (PRILOSEC) 40 mg capsule Take 1 capsule by mouth once daily. - rosuvastatin (CRESTOR) 5 mg tablet Take 5 mg by mouth daily at bedtime. - sacubitril-valsartan (ENTRESTO) 97-103 mg tablet Take 1 tablet twice a day by oral route for 90 days. - spironolactone (ALDACTONE) 25 mg tablet Take 25 mg by mouth every morning. - warfarin (COUMADIN) 3 mg tablet TAKE 1 TO 1 AND 1/2 (ONE TO ONE AND ONE-HALF) TABLETS BY MOUTH ONCE DAILY DIRECTED - doxycycline monohydrate (MONODOX) 100 mg capsule TAKE 1 CAPSULE BY MOUTH TWICE DAILY FOR 14 DAYS (MORNING AND BEDTIME). TAKE WITH AT LEAST 8OZ OF WATER. DO NOT LIE DOWN FOR 30 MINUTES AFTER. Facility-Administered Medications as of 05/27/2023 - perflutren lipid microspheres 1.3 mL in NaCl (PF) 0.9% 10 mL injection (DEFINITY) - sodium chloride 0.9 % (flush) 10 mL (BD POSIFLUSH) Problem List As Of Date: 05/27/2023 (None) Encounter Status:Closed by JEANETH DUNCAN RN on 05/27/23 [facility] 05-26-2023 SANJANA Telephone (CARDMN) GUS DEL CID ([id number]) 1945 M Date Time Provider Department 05/26/23 FILIPPO ZARATE During your visit today, we recorded the following information about you: Shoshana Kim RN 05/26/2023 4:55 PM Signed ----- Message from Filippo Zarate MD sent at 05/26/2023 4:34 PM EDT ----- Regarding: Lab results and CxR Please call patient with results. BNP slightly elevated CxR as reported. He is awaiting echo and stress test on 06/09 and will make final recommendations after that. I would like to see his EKGs and his pacemaker check records from before to see 1. How was the device programmed 2. How much was he pacing in the RV Thanks Filippo Zarate MD May 26, 2023 4:36 PM Shoshana Kim RN 05/26/2023 4:58 PM Signed Attempted to contact the patient. Spoke to the patient's . The patient will call back. Jenelle Urena RN 05/27/2023 8:33 AM Signed May 27, 2023 Patient Contact Number: [phone] (home) [phone] (cell) Patient last seen within the last year: Yes Reason For Call: Returning Phone Call Thank you Adm Andrew Mower Sharpener Shoshana Kim RN 05/27/2023 9:24 AM Signed Contacted the patient. Reviewed test results and recommendations. He will have his records faxed. Jenelle Urena RN 06/02/2023 10:02 AM Signed June 02, 2023 Patient Contact Number: [phone] (home) [phone] (cell) Patient last seen within the last year: Yes Reason For Call: Follow-up Questions: Patient called requesting to speak to the nurse. Please contact patient [phone] Thank you Adm Andrew Mower Sharpener Shoshana Kim RN 06/02/2023 3:37 PM Signed Contacted the patient. Explained to the patient we need full device reports and EKGs. He patient recommended call Dr. Ramirez's office [phone]. Contacted Dr. Ramirez's office. Requested device reports and EKGs be faxed. Cristian NEWBY Allergies As of Date: 05/26/2023 Noted Allergy Reaction MORPHINE 07/05/2020 16 - Unknown DEXTROAMPHETAMINE 09/25/2009 16 - Unknown ATORVASTATIN 11/02/2014 14 - Other: See Comments 16 - Unknown Comments: Other Reaction(s): Pain Date Reviewed: 05/24/2023 Reviewed by: Stefanie Mar RN - Fully Assessed Reason for Visit: Patient Update [1234] Prescriptions as of 06/02/2023 - amLODIPine (NORVASC) 5 mg tablet Take 5 mg by mouth every morning. - clopidogrel (PLAVIX) 75 mg tablet Take 75 mg by mouth every morning. - JARDIANCE 10 mg tablet - metoprolol succinate ER (TOPROL XL) 100 mg Take 100 mg by mouth twice daily. - omeprazole (PRILOSEC) 40 mg capsule Take 1 capsule by mouth once daily. - rosuvastatin (CRESTOR) 5 mg tablet Take 5 mg by mouth daily at bedtime. - sacubitril-valsartan (ENTRESTO) 97-103 mg tablet Take 1 tablet twice a day by oral route for 90 days. - spironolactone (ALDACTONE) 25 mg tablet Take 25 mg by mouth every morning. - warfarin (COUMADIN) 3 mg tablet TAKE 1 TO 1 AND 1/2 (ONE TO ONE AND ONE-HALF) TABLETS BY MOUTH ONCE DAILY DIRECTED - doxycycline monohydrate (MONODOX) 100 mg capsule TAKE 1 CAPSULE BY MOUTH TWICE DAILY FOR 14 DAYS (MORNING AND BEDTIME). TAKE WITH AT LEAST 8OZ OF WATER. DO NOT LIE DOWN FOR 30 MINUTES AFTER. Facility-Administered Medications as of 06/02/2023 - perflutren lipid microspheres 1.3 mL in NaCl (PF) 0.9% 10 mL injection (DEFINITY) - sodium chloride 0.9 % (flush) 10 mL (BD POSIFLUSH) Problem List As Of Date: 05/26/2023 (None) Encounter Status:Closed by SHOSHANA KIM on 05/26/23 Normal [facility] CBC panel Auto (Bld)on 05-24 Erythrocyte distribution width (RBC) [Ratio] 13.4 % 11.5 - 15.0 % [facility] Hematocrit (Bld) [Volume fraction] 48.8 % 39.0 - 51.0 % [facility] Hemoglobin (Bld) [Mass/Vol] 15.6 g/dL 13.0 - 17.0 g/dL [facility] MCH (RBC) [Entitic mass] 31.2 pg 26.0 - 34.0 pg [facility] MCHC (RBC) [Mass/Vol] 32.0 g/dL 30.5 - 36.0 g/dL [facility] MCV (RBC) [Entitic vol] 97.6 fL 80.0 - 100.0 fL [facility] Nucleated RBC (Bld) [#/Vol] <0.01 k/uL [facility] Platelet mean volume (Bld) [Entitic vol] 11.4 fL 9.0 - 12.7 fL [facility] Platelets (Bld) [#/Vol] 147 10*3/uL Low 150 - 400 k/uL [facility] RBC (Bld) [#/Vol] 5.00 10*6/uL 4.20 - 6.0 0 m/uL [facility] WBC (Bld) [#/Vol] 6.36 10*3/uL 3.70 - 11. 00 k/uL [facility] Erythrocyte distribution width (RBC) [Ratio] 13.4 % Normal 11.5-15.0 [facility] Comment on above: Order Comment: Speci men Type: BLOOD SPECIMENOrdering Facility: [facility] Address: [address] [place] [address] Performed By: #### 5 8410-2 ####[facility]CL[facility] [id number] [address] [place] Hematocrit (Bld) [Volume fraction] 48.8 % Normal 39.0-51.0 [facility] Comment on above: Order Comment: Speci men Type: BLOOD SPECIMENOrdering Facility: [facility] Address: [address] [place] [address] Performed By: #### 5 8410-2 ####[facility] LABIA [id number] [address] [place] Hemoglobin (Bld) [Mass/Vol] 15.6 g/dL Normal 13.0-17.0 [facility] Comment on above: Order Comment: Speci men Type: BLOOD SPECIMENOrdering Facility: [facility] Address: [address] [place] [address] Performed By: #### 5 8410-2 ####[facility] LABIA [id number] [place] [address] [place] MCH (RBC) [Entitic mass] 31.2 pg Normal 26.0-34.0 [facility] Comment on above: Order Comment: Speci men Type: BLOOD SPECIMENOrdering Facility: [facility] Address: [address] [place], [place] [address] Performed By: #### 5 8410-2 ####[facility]CLIA [id number] [place] [address] [place] MCHC (RBC) [Mass/Vol] 32.0 g/dL Normal 30.5-36.0 [facility] Comment on above: Order Comment: Speci men Type: BLOOD SPECIMENOrdering Facility: [facility] Address: [address] Performed By: #### 5 8410-2 ####[facility] LABIA [id number] [address] [place] MCV (RBC) [Entitic vol] 97.6 fL Normal 80.0-100.0 [facility] Comment on above: Order Comment: Speci men Type: BLOOD SPECIMENOrdering Facility: [facility] Address: [address] Performed By: #### 5 8410-2 ####[facility] [id number] [address] [place] Nucleated RBC (Bld) [#/Vol] 10*3/uL Normal <0.01 [facility] Comment on above: Order Comment: Speci men Type: BLOOD SPECIMENOrdering Facility: [facility] Address: [address] Performed By: #### 5 8410-2 ####[facility] [id number] [place] [address] [place] Platelet mean volume (Bld) [Entitic vol] 11.4 fL Normal 9.0-12.7 [facility] Comment on above: Order Comment: Speci men Type: BLOOD SPECIMENOrdering Facility: [facility] Address: [address] [place] [address] Performed By: #### 5 8410-2 ####[facility] LABIA [id number] [place] [address] [place] Platelets (Bld) [#/Vol] 147 10*3/uL Low 150-400 [facility] Comment on above: Order Comment: Speci men Type: BLOOD SPECIMENOrdering Facility: [facility] Address: [address] Performed By: #### 5 8410-2 ####[facility]CLIA [id number] [place] [address] [place] RBC (Bld) [#/Vol] 5.00 10*6/uL Normal 4.20-6.00 [facility] Comment on above: Order Comment: Speci men Type: BLOOD SPECIMENOrdering Facility: [facility] Address: [address] [place] [address] Performed By: #### 5 8410-2 ####[facility]IA [id number] [place] [address] [place] WBC (Bld) [#/Vol] 6.36 10*3/uL Normal 3.70-11.00 [facility] Comment on above: Order Comment: Speci men Type: BLOOD SPECIMENOrdering Facility: [facility] Address: [address] [place] [address] Performed By: #### 5 8410-2 ####[facility] LABIA [id number] [address] [place] CNOVon 05-24-2023 CNOV Office Visit (CARDMN ) GUS DEL CID ([id number]) 1945 M Date Time Provider Department 05/24/23 8:45 AM FILIPPO ZARATE During your visit today, we recorded the following information about you: Pulse Blood pressure Weight Height 84/minute 133/83 87.1 kg 1.803 m Filippo Zarate MD 05/24/2023 5:51 PM [facility] [place] Anabella Gilmore Department of Cardiovascular Medicine SECTION OF CARDIAC PACING and ELECTROPHYSIOLOGY OUTPATIENT VISIT DATE May 24, 2023 OUTPATIENT VISIT TYPE NEW PRIMARY CARE PHYSICIAN: No PCP REFERRING PHYSICIAN: EZEQUIEL GILLILAND [address] [facility] 3 [facility] [address] CHIEF COMPLAINT: Lead extraction and CHECK VIEWER-D implant HISTORY OF PRESENT ILLNESS: Mr. Del Cid is a 77 year old male who presents today for evaluation for lead extraction and CHECK VIEWER-D upgrade. NURSING INTAKE HISTORY: Gus Del Cid is a 77 y/o male who presents for evaluation for lead extraction and CHECK VIEWER-D upgrade. He has a history of CAD, s/p CABG x 3 and OSVALDO closure (06/2020), s/p PCI with 3 stents (10/17/2020) and PCI with 2 stents (11/12/2020), atrial fibrillation, ICM, dual chamber PPM (2002, with generator change 2013), aortic aneurysm, PAD, s/p left femoropopliteal bypass, HTN, HLD, and DM. He was found to have EF=34% on Cardiac MRI 03/2023. He underwent unsuccessful CHECK VIEWER-D upgrade 05/13/2023 due to brachiocphalic vein stenosis and scarring. Noted to have significant scar in the SVC-RA junction and scar in the intersection of left brachiocephalic and right IJV. His device has trigger LEOBARDO but has not yet reached EOL. He reports he had discomfort at his device site from incisional pain. He endorses shortness of breath with exertion. He states he can have chest pain on exertion if he over exerts. He endorses lightheadedness with bends over. He recent palpitations. He denies syncope. CHADS2-Vasc Score Breakdown 5 Total Score 2 Age >= 75 years old 1 History of hypertension 1 History of diabetes mellitus 1 History of vascular disease PAST MEDICAL HISTORY Diagnosis Date Aortic aneurysm (HCC) Atrial fibrillation (HCC) CAD (coronary artery disease) Diabetes mellitus (HCC) HLD (hyperlipidemia) HTN (hypertension) Ischemic cardiomyopathy PAD (peripheral artery disease) (HCC) PAST SURGICAL HISTORY Procedure Laterality Date PAST SURGICAL HISTORY OF CABG PAST SURGICAL HISTORY OF PCI PAST SURGICAL HISTORY OF PPM SOCIAL HISTORY Social History Tobacco Use Smoking status: Former Packs/day: 1.00 Years: 30.00 Total pack years: 30.00 Types: Cigarettes Smokeless tobacco: Never Tobacco comments: Quit in the Substance Use Topics Alcohol use: Not Currently Drug use: Never FAMILY HISTORY Problem Relation Age of Onset Heart disease Mother Heart Failure Father ALLERGIES: ALLERGIES Allergen Reactions Morphine Unknown Dextroamphetamine Unknown Atorvastatin Other: See Comments, Unknown Other Reaction(s): Pain MEDICATIONS: amLODIPine (NORVASC) 5 mg tablet Take 5 mg by mouth every morning. clopidogrel (PLAVIX) 75 mg tablet Take 75 mg by mouth every morning. JARDIANCE 10 mg tablet metoprolol succinate ER (TOPROL XL) 100 mg Take 100 mg by mouth twice daily. omeprazole (PRILOSEC) 40 mg capsule Take 1 capsule by mouth once daily. rosuvastatin (CRESTOR) 5 mg tablet Take 5 mg by mouth daily at bedtime. sacubitril-valsartan (ENTRESTO) 97-103 mg tablet Take 1 tablet twice a day by oral route for 90 days. spironolactone (ALDACTONE) 25 mg tablet Take 25 mg by mouth every morning. warfarin (COUMADIN) 3 mg tablet TAKE 1 TO 1 AND 1/2 (ONE TO ONE AND ONE-HALF) TABLETS BY MOUTH ONCE DAILY DIRECTED doxycycline monohydrate (MONODOX) 100 mg capsule TAKE 1 CAPSULE BY MOUTH TWICE DAILY FOR 14 DAYS (MORNING AND BEDTIME). TAKE WITH AT LEAST 8OZ OF WATER. DO NOT LIE DOWN FOR 30 MINUTES AFTER. REVIEW OF SYSTEMS: General, constitutional: Weight loss or gain- No, Fever or chills-No, Weakness-yes, Trouble sleeping-No. Head, Eyes, Ears, Mouth: Headache, head injury-No, Glasses or contact lenses-yes, Pain-No, Impaired vision-No, Decreased hearing-yes, Ringing in ears-No, Nose bleeds-No, Dental difficulties-No, Bleeding gums-No, Dentures-yes. Neck: Swelling-No, Pain-No, Stiffness-No. Respiratory: Cough-No, Spitting up blood-No, Shortness of breath-yes, Wheezing or asthma-No. Musculoskeletal: Muscle or joint pain or stiffness-No, Joint swelling-No. Gastrointestinal: Difficulty swallowing-yes, Heartburn-No, Change in bowel habits-No, Blood in stool, Dark black stools-No. Neurological/Psychiatr ic: Weakness, paralysis-No, Numbness-No, Tingling-No, Tremor-No, Nervousness or anxiety-No, Depressed mood-No, Memory loss-yes. Skin: Rash-No, Itching-No. Hematological: Easy bruising-No, Easy bleeding-No. Endocrine: Heat or cold intolerance- (more content not included)... Normal [facility] Comprehensive metabolic 2000 panelon 05-24-2023 Albumin [Mass/Vol] 4.2 g/dL Normal 3.9-4.9 [facility] Comment on above: Order Comment: Speci men Type: BLOOD SPECIMENOrdering Facility: [facility] Address: [address] [place] [address] Performed By: #### 2 4323-8, 44497-3, 3016-3 ####[facility]CLIA [id number] [place] [address] [place] ALP [Catalytic activity/Vol] 52 U/L Normal 38-113 [facility] Comment on above: Order Comment: Speci men Type: BLOOD SPECIMENOrdering Facility: [facility] Address: [address] [place] [address] Performed By: #### 2 4323-8, 60157-5, 3016-3 ####[facility]CLIA [id number] [place] [address] [place] ALT [Catalytic activity/Vol] 7 U/L Low 10-54 [facility] Comment on above: Order Comment: Speci men Type: BLOOD SPECIMENOrdering Facility: [facility] Address: [address] [place] [address] Performed By: #### 2 4323-8, 20269-3, 3016-3 ####[facility] LABCLIA [id number] [place] [address] [place] Anion gap [Moles/Vol] 16 mmol/L Normal 9-18 [facility] Comment on above: Order Comment: Speci men Type: BLOOD SPECIMENOrdering Facility: [facility] Address: [address] [place] [address] Performed By: #### 2 4323-8, 41729-8, 3016-3 ####[facility]CLIA [id number] [place] [address] [place] AST [Catalytic activity/Vol] 17 U/L Normal 14-40 [facility] Comment on above: Order Comment: Speci men Type: BLOOD SPECIMENOrdering Facility: [facility] Address: [address] [place] [address] Performed By: #### 2 4323-8, 32898-7, 3016-3 ####[facility]IA [id number] [place] [address] [place] Bilirubin [Mass/Vol] 0.6 mg/dL Normal 0.2-1.3 [facility] Comment on above: Order Comment: Speci men Type: BLOOD SPECIMENOrdering Facility: [facility] Address: [address] [place] [address] Performed By: #### 2 4323-8, 11542-7, 3016-3 ####[facility] LABIA [id number] [place] [address] [place] Calcium [Mass/Vol] 10.3 mg/dL High 8.5-10.2 [facility] Comment on above: Order Comment: Speci men Type: BLOOD SPECIMENOrdering Facility: [facility] Address: [address] [place] [address] Performed By: #### 2 4323-8, 05337-3, 3016-3 ####[facility] LABIA [id number] [place] [address] [place] Chloride [Moles/Vol] 107 mmol/L High 97-105 [facility] Comment on above: Order Comment: Speci men Type: BLOOD SPECIMENOrdering Facility: [facility] Address: [address] [place] [address] Performed By: #### 2 4323-8, 07810-8, 3016-3 ####[facility] LABIA [id number] [place] [address] [place] CO2 [Moles/Vol] 16 mmol/L Low 22-30 [facility] Comment on above: Order Comment: Yan dias Type: BLOOD SPECIMENOrdering Facility: [facility] Address: [address] [place] [address] Performed By: #### 2 4323-8, 25585-3, 3016-3 ####[facility]CLIA [id number] [address] [place] Creatinine [Mass/Vol] 1.00 mg/dL Normal 0.73-1.22 [facility] Comment on above: Order Comment: Yan men Type: BLOOD SPECIMENOrdering Facility: [facility] Address: [address] [place] [address] Performed By: #### 2 4323-8, 54280-4, 3016-3 ####[facility] LABIA [id number] [address] STATES OF [facility] ESTIMATED GLOMERULAR FILTRATION RATE 77 mL/min/1.73m??? Normal >=60 [facility] Comment on above: Order Comment: Yan dias Type: BLOOD SPECIMENOrdering Facility: [facility] Address: [address] [place] [address] Result Comment: Katina mated Glomerular Filtration Rate (eGFR) is calculated using the 2020 CKD-EPI creatinine equation. This equation utilizes serum creatinine, sex, and age as parameters. The creatinine assay has traceable calibration to isotope dilution-mass spectrometry. Refer to KDIGO guidelines for clinical interpretation. In patients with unstable renal function, e.g. those with acute kidney injury, the eGFR may not accurately reflect actual GFR. Performed By: #### 2 4323-8, 57501-6, 3016-3 ####[facility]CLIA [id number] [place] [address] [place] Glucose [Mass/Vol] 113 mg/dL High 74-99 [facility] Comment on above: Order Comment: Vianeyi men Type: BLOOD SPECIMENOrdering Facility: [facility] Address: [address] [place] [id number] Result Comment: The [place] [employer] (ADA) provides guidance for cutoff values for fasting glucose and random glucose. The ADA defines fasting as no caloric intake for at least 8 hours. Fasting plasma glucose results between 100 to 125 mg/dL indicate increased risk for diabetes (prediabetes). Fasting plasma glucose results greater than or equal to 126 mg/dL meet the criteria for diagnosis of diabetes. In the absence of unequivocal hyperglycemia, results should be confirmed by repeat testing. In a patient with classic symptoms of hyperglycemia or hyperglycemic crisis, random plasma glucose results greater than or equal to 200 mg/dL meet the criteria for diagnosis of diabetes. Reference: Standards of Medical Care in Diabetes 2016, [place] [employer]. Diabetes Care. 2016.39(Suppl 1). Performed By: #### 2 4323-8, 19392-2, 3016-3 ####[facility] [id number] [place] [address] [place] Potassium [Moles/Vol] 5.0 mmol/L Normal 3.7-5.1 [facility] Comment on above: Order Comment: Speci men Type: BLOOD SPECIMENOrdering Facility: [facility] Address: [address] Performed By: #### 2 4323-8, 89511-8, 6-3 ####[facility]CLIA [id number] [place] [address] [place] Protein [Mass/Vol] 6.7 g/dL Normal 6.3-8.0 [facility] Comment on above: Order Comment: Speci men Type: BLOOD SPECIMENOrdering Facility: [facility] Address: [address] [place] [id number] Performed By: #### 2 4323-8, 69258-1, 3016-3 ####[facility]CLIA [id number] [place] [address] [place] Sodium [Moles/Vol] 139 mmol/L Normal 136-144 [facility] Comment on above: Order Comment: Speci men Type: BLOOD SPECIMENOrdering Facility: [facility] Address: [address] [place] [id number] Performed By: #### 2 4323-8, 60400-9, 3016-3 ####[facility]CLIA [id number] [place] [address] [place] Urea nitrogen [Mass/Vol] 17 mg/dL Normal 9-24 [facility] Comment on above: Order Comment: Speci men Type: BLOOD SPECIMENOrdering Facility: [facility] Address: [address] [place] [id number] Performed By: #### 2 4323-8, 02682-9, 3016-3 ####[facility]CLIA [id number] [place] [address] [place] SGT14pp 05-24-2023 ECG01 Ventricular Rate : 8 0 BPM Atrial Rate : 241 BPM QRS Duration : 172 ms Q-T Interval : 432 ms QTC Calculation(Bazett) : 498 ms Calculated R [place] : -77 degrees Calculated T [place] : 94 degrees VENTRICULAR-PACED RHYTHM ABNORMAL ECG Confirmed by EMELINA FARRELL MD ([id number]) on 05/27/2023 7:45:26 PM NAME : GUS DEL CID PID : [id number] : 1945 Gender : Male Race : ORD : Procedure Date : May 24 2023 08:46:37 Edit Date : May 27 2023 19:45:27 Diagnosis: VENTRICULAR-PACED RHYTHM ABNORMAL ECG Confirmed by EMELINA FARRELL MD ([id number]) on 05/27/2023 7:45:26 PM Test Reason : Location : 314 : J14 J1-4 Overread By : EMELINA FARRELL MD Edited By : EMELINA FARRELL MD Referred By : , Acquired by : REZA HUANG [facility] NT-proBNP [facility] 05-24 Natriuretic peptide.B prohormone N-Terminal [Mass/Vol] 1002 pg/mL High <450 [facility] Comment on above: Order Comment: Speci men Type: BLOOD SPECIMENOrdering Facility: [facility] Address: [address] [place], [place] [address] Performed By: #### 2 4323-8, 30955-8, 3016-3 ####[facility] [id number] ADALGISAYadiel WRAY [address] [place] No Panel Informationon 05-24 BLANK _ [facility] Implant Date 01/04/2003 [facility] Model 1388T Tendril DX [facility] BLANK _ [facility] Implant Date 01/04/2003 [facility] Model 1388T Tendril DX [facility] CHECKon AV Delay Adaptive Paced Minimum (ms) 225 ms [facility] AV Delay Adaptive Rate Maximum (bpm) 120 {beats}/min [facility] AV Delay Adaptive Rate Minimum (bpm) 90 {beats}/min [facility] AV Delay Adaptive Status DISABLED [facility] Battery Voltage (volts) 2.60 V [facility] Jean RA Pacing Amplitude (volts) 3.0 V [facility] Jean RA Pacing Polarity BI [facility] Jean RA Pacing Pulse Width (ms) 0.4 ms [facility] Jaen RA Sensing Blanking Period (ms) 150 ms [facility] Jean RA Sensing Polarity BI [facility] Jean RA Sensing Refractory Period (ms) 190 ms [facility] Jean RV Pacing Amplitude (volts) 3.0 V [facility] Jean RV Pacing Polarity BI [facility] Jean RV Pacing Pulse Width (ms) 0.4 ms [facility] Jean RV Sensing Amplitude (mvolts) 2.0 mV [facility] Jean RV Sensing Blanking Period (ms) Auto [facility] Jean RV Sensing Polarity BI [facility] Jean RV Sensing Refractory Period (ms) 250 ms [facility] Hysteresis Rate (bpm) Off [facility] Implant Date 02/13/2014 [facility] Lead1 Mfg PCS [facility] Lead2 Mfg PCS [facility] Location RV [facility] Location RA [facility] Lower Rate (bpm) 50 {beats}/min [facility] Max S[facility] Rate (bmp) 120 {beats}/min [facility] Model [address] ASHLEY [facility] Pacing Mode DDI [facility] PM-Device Mfg STJ [facility] PM-Percent Pacing (A) 79.0 % [facility] PM-Percent Pacing (V) 14.0 % [facility] PM-Rate Modulation Acceleration Reaction Fast [facility] PM-Rate Modulation Deceleration Medium [facility] PM-Rate Modulation Coles Auto (+2) [facility] PM-Rate Modulation Threshold Auto (-0.5) [facility] Serial Number [id number] [facility] Serial Number [id number] [facility] Serial Number [id number] [facility] Thresh RA Capture Amplitude (volts) 0 V [facility] Thresh RA Capture Duration (ms) 0.5 ms [facility] Thresh RA Sensing Amplitude (mvolts) 3.5 mV [facility] Thresh RV Capture Amplitude (volts) 1.125 V [facility] Thresh RV Capture Duration (ms) 0.4 ms [facility] Thresh RV Sensing Amplitude (mvolts) 12.0 mV [facility] AMS Fallback Rate (bpm) 80 {beats}/min [facility] AV Delay Adaptive Paced Minimum (ms) 225 ms [facility] AV Delay Adaptive Sensed Minimum (ms) 200 ms [facility] Ejan RA Pacing Amplitude (volts) 3.0 V [facility] Jean RA Pacing Pulse Width (ms) 0.4 ms [facility] Jean RA Sensing Blanking Period (ms) 150 ms [facility] Jean RA Sensing Refractory Period (ms) 375 ms [facility] Jean RV Pacing Amplitude (volts) 3.0 V [facility] Jean RV Pacing Pulse Width (ms) 0.4 ms [facility] Demand Interval (ms) [address]48 [facility] Implant Date 02/13/2014 [facility] Lead1 Mfg PCS [facility] Lead2 Mfg PCS [facility] Location RV [facility] Location RA [facility] Lower Rate (bpm) 70 {beats}/min [facility] Magnet Interval (ms) 704 [facility] Max Sensor Rate (bmp) 120 {beats}/min [facility] Model [address] ASHLEY Ocampo [facility] Pacemaker Dependent? NO [facility] Pacing Mode DDDR [facility] PM-Device Mfg STJ [facility] Rhythm AF [facility] Serial Number [id number] [facility] Serial Number [id number] [facility] Serial Number [id number] [facility] Thresh RA Sensing Amplitude (mvolts) 3.4 mV [facility] Thresh RV Capture Amplitude (volts) 1.25 V [facility] Thresh RV Capture Duration (ms) 0.4 ms [facility] Thresh RV Sensing Amplitude (mvolts) 12.0 mV [facility] Tracking Rate (bpm) 100 {beats}/min [facility] TSH SerPl-aCncon 05-24-2023 TSH Qn 2.170 m[IU]/L Normal 0.270-4.200 [facility] Comment on above: Order Comment: Speci men Type: BLOOD SPECIMENOrdering Facility: [facility] Address: [address] [place], [place] [id number] Performed By: #### 2 [id number], [id number], [id number] ####[facility]CL[facility] [id number] [address] OF [facility] XR CHEST 2V FRONTAL/LATon XR CHEST 2V FRONTAL/LAT * * *Final Report* * * DATE OF EXAM: May 24 2023 2:36PM [id number] - XR CHEST 2V FRONTAL/LAT / PROCEDURE REASON: multiple diagnoses * * * * Physician Interpretation * * * * EXAMINATION: CHEST RADIOGRAPH (2 VIEW FRONTAL and LATERAL) CLINICAL HISTORY: Biventricular congestive heart failure (HCC) Atrial fibrillation with rapid ventricular response (HCC) Type 2 diabetes mellitus without complication, without long-term current use of insulin (HCC) MQ: [id number] EXAM DATE/TIME: 05/24/2023 2:36 PM COMPARISON: No prior chest radiograph is available for comparison. RESULT: Lines, tubes, and devices: A dual-chamber pacemaker is seen with leads overlying the right atrium and right ventricle. Lungs and pleura: There is no new focal lung consolidation. Linear atelectasis is seen in the left midlung. No substantial pleural effusion is seen. There is no pneumothorax. Cardiomediastinal silhouette: The heart size is normal. The thoracic aorta is tortuous. Atherosclerotic calcifications are seen in the aortic arch. Status post median sternotomy and left atrial appendage ligation clip placement. Bones and soft tissues: Degenerative changes are seen in the thoracic spine. IMPRESSION: Please see body of the report. Hair Blender: AVEL Transcribe Date/Time: May 24 2023 2:44P Dictated by : ROSE MARIE DAVIS MD This examination was interpreted and the report reviewed and electronically signed by: ROSE MARIE DAVIS MD on May 24 2023 2:46PM EST [id number] Normal [facility] CNCOon 05-20-2023 CNCO Letter Text Normal [facility] CNPNon 05-17-2023 CNPN Telephone (CARDMN) GUS DEL CID ([id number]) 1945 M Date Time Provider Department 05/17/23 FILIPPO ZARATE During your visit today, we recorded the following information about you: Deedee Seay 05/20/2023 12:01 PM Signed Referral and outside medical records scanned into [email or web address]. Patient scheduled to see Dr. Filippo Zarate on May 24, 2023. Allergies As of Date: 05/17/2023 (Not on File) Date Reviewed: Never Reviewed Reason for Visit: Received Referral and Outside Medical Records [Other] Problem List As Of Date: 05/17/2023 (None) Encounter Status:Closed by DEEDEE SEAY on 05/20/23 Normal [facility] HEMATOCRITon 04-06-2023 Hematocrit (Bld) [Volume fraction] 26.9 % Low 39.6-48.8 [facility] Comment on above: Performed By: #### H CT #### [facility] (DEFAULT) [address] [place] [address] MRI CARDIAC WITH CONTRAST W/ VELOCITY FLOW [facility] 04-06-2023 MRI CARDIAC WITH CONTRAST W/VELOCITY FLOW [facility] CMR Report Name: GUS DEL CID : 1945 Scan Date: 2023-04-06 15:00:11 Electronically signed by Balaji Peter 17:35:21 VITALS HEIGHT: 71 in (180.34 cm) WEIGHT: 189.00 lbs (85.73 kgs) BSA: 2.06 m^2 BP: 151 / 84 mmHg BASELINE HR: 70 BPM HEART RHYTHM: Other... DESCRIBE HEART RHYTHM:: AV paced FINAL Normal LV size and moderately decreased systolic function (LVEF 34%) with thinning and akinesis of the basal to mid inferolateral wall and severe hypokinesis of the mid to apical inferior wall. There is ischemic LGE in both territories (RCA and LCX) with basal to mid RCA territory being viable and basal to mid LCX territory of non-viable. Elevated ECV is consistent with interstitial fibrosis. Normal RV size and moderately decreased systolic function. SUMMARY 77 yo with ischemic cardiomyopathy referred for evaluation. Cardiac MRI LEFT VENTRICLE: Quantitative LVEF 34 %. LV cavity size is normal. There is mildly increased septal thickness. There is thinning and akinesis of the basal to mid inferolateral wall. There is severe hypokinesis of the mid to apical inferior wall. Normal T1 and T2 values. Elevated ECV 33% (normal < 31%) is supportive of interstitial fibrosis. VIABILITY: There is subendocardial enhancement of the basal to mid inferior wall (< 50%, viable). There is near transmural enhancement of the basal to mid inferolateral wall.There is >50% enhancement of the apical inferior wall. RIGHT VENTRICLE: Quantitative RVEF 38 %. RV cavity size is normal. RV systolic function is moderately decreased globally. LEFT ATRIUM: LA is moderately enlarged. RIGHT ATRIUM: RA cavity size is normal. PERICARDIUM: Pericardium is normal. PLEURAL EFFUSION: There is no pleural effusion. AORTIC VALVE: There is trivial aortic regurgitation. MITRAL VALVE: There is trivial mitral regurgitation. TRICUSPID VALVE: There is mild tricuspid regurgitation. PULMONIC VALVE: There is trivial pulmonic regurgitation. AORTIC ROOT: Normal in size. OTHER FINDINGS: Sternal wires and surgical left atrial appendage ligation. Pacemaker leads. CORE EXAM MEASUREMENTS VOLUMETRIC ANALYSIS -- . . LV Reference RV Reference +------+ +-- ----+ +---- --+ + EDV ml 117 (105-187) 97 (100-200) ml/m^2 57 (58-93) 47 (52-98) ESV ml 77 (25-70) 60 (16-76) ml/m^2 38 (13-35) 29 (8-37) CO L/min 2.75 2.56 L/min/m^2 1.34 1.24 MASS g 90 (106-183) g/m^2 44 (56-89) SV ml 39 (71-127) 37 (70-138) ml/m^2 19 (39-63) 18 (36-69) EF % 34 (59-77) 38 (57-83) '------+ +-- ----+ +---- --+ ' CARDIAC OUTPUT HR: 70 BPM LV DIMENSIONS -- WALL THICKNESS - ANTEROSEPTAL: 1.1 cm WALL THICKNESS - INFEROLATERAL: 0.4 cm LV RISSA: 4.4 cm LA DIMENSIONS (LV SYSTOLE) -- VOLUME: 108 ml VOLUME NORMALIZED: 52.5 ml/m^2 RA DIMENSIONS (RV SYSTOLE) -- VOLUME: 54 ml VOLUME NORMALIZED: 26.2 ml/m^2 EXTRACELLULAR VOLUME MEASUREMENT -- PRE-CONTRAST T1 MYOCARDIUM: 1000 msec PRE-CONTRAST T1 LV CAVITY: 1576 msec POST-CONTRAST T1 MYOCARDIUM: 360 msec POST-CONTRAST T1 LV CAVITY: 218 msec HEMATOCRIT: 26.9 % HEMATOCRIT DATE: ECV: 33 % SCAN INFO GENERAL SCANNER -- MANAGER EXPORT: COVEGA MODEL: [employer] PULSE SEQUENCES: GRE cine, 2D LGE segmented, 2D LGE single-shot, Pre-contrast T1 mapping, Post-contrast T1 mapping, T2 mapping, Phase contrast imaging, Fat-water imaging, Bright-blood SSFP morphology CONTRAST AGENT -- TYPE: Gadavist GD CONCENTRATION: 1 M VOLUME ADMINISTERED: 13 ml DOSAGE: 0.15 mmol/kg SETUP (more content not included)... Normal [facility] MRI PLAIN FILM FOR CHEST EXA 04-06-2023 MRI PLAIN FILM FOR CHEST EXAM CLINICAL INDICATIONS: Need xray of orbits prior to MRI. Hx of metal fragments in eyes FINDINGS: Three images of the skull were obtained. Osseous: No destructive lesion or displaced skull fracture is identified. The sella appears normal in size. The paranasal sinuses appear normally aerated. Soft Tissue: No soft tissue abnormality is identified. There is no metallic foreign body. IMPRESSION: No metallic foreign body to preclude MRI. I personally viewed and interpreted these images and I have reviewed and approved this report. Normal [facility] No Panel Informationon 04-06 [facility] Radiology Study observation (narrative) [facility] XR CHEST PA AND LATERALon XR CHEST PA AND LATERAL EXAM: XR CHEST PA AND LATERAL, 04/06/2023 14:33 PM COMPARISON: No prior studies available for comparison. CLINICAL INDICATIONS: MRI clearance. Has ICD RELEVANT CLINICAL HISTORY: FINDINGS: (Adequate technique) Implanted Devices: Left subclavian approach dual chamber pacemaker with intact leads ending in right atrium and right ventricle. Lungs: Clear, without mass, interstitial disease, or consolidation. Pleural Spaces: No pleural effusion. No pneumothorax. Mediastinum and Brittany: Normal Cardiac silhouette and great vessels: Normal heart size. Prior left atrial appendage ligation. Unremarkable aorta. Chest Wall: Median sternotomy. No acute osseous abnormality. IMPRESSION: No acute cardiopulmonary disease. Left subclavian approach dual chamber pacemaker. Normal [facility] CT SINUSES WO CONon 02-19-20 CT SINUSES WO CON EXAMINATION: CT SINUSES WO CON HISTORY: Disorder of the nose COMPARISON: No relevant comparison available. TECHNIQUE: Axial and Coronal CT images were created without IV contrast. Dose reduction techniques were achieved by using automated exposure control and/or adjustment of mA and/or kV according to patient size and/or use of iterative reconstruction technique. FINDINGS: MAXILLARY SINUSES: Trace amount of mucosal thickening bilaterally.. Infundibula are patent. No significant anomalous inferior orbital ethmoid (Chris) air cells. ETHMOID SINUSES: No significant mucosal thickening or fluid. Fovea ethmoidali and lamina papyracea are symmetric and intact. SPHENOID SINUSES: No significant mucosal thickening or fluid. Sphenoethmoidal recesses are patent. No bony dehiscence. FRONTAL SINUSES: No significant mucosal thickening or fluid. Frontal recesses are patent. NASAL FOSSA: 3 mm rightward deviation of the nasal septum. No lalo bullosa or paradoxical turbinates are identified. OTHER: Negative. Limited views of the skull base and orbits are unremarkable. IMPRESSION: 1. Mild chronic sinusitis involving the maxillary sinuses. Electronically authenticated by: RAJEEV NIETO Date: 2023-02-18 14:53 Normal [facility] US ABD AORTA DIAGNOSTICon US ABD AORTA DIAGNOSTIC EXAM: US ABD AORTA DIAGNOSTIC HISTORY: Peripheral vascular disease (disorder). ; Follow-up abdominal aortic aneurysm TECHNIQUE: Ultrasound was performed of the abdominal aorta. COMPARISON: Ultrasound abdominal aorta 11/03/2020 FINDINGS: AORTA: Fusiform dilation of the infrarenal aorta, 4.8 x 4.7 cm. OTHER: Fusiform dilation of the right common iliac artery 1.5 cm, and left common iliac artery 1.6 cm. IMPRESSION: 1. Grossly stable large abdominal aortic aneurysm, 4.8 cm maximum diameter. 2. 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 Electronically authenticated by: RAJEEV NIETO Date: 2022-10-27 12:55 Normal [facility] ECHOCARDIO M/2D COMPLETEon 1 ECHOCARDIO M/2D COMPLETE Patient: GUS DEL CID Exam Date: 08/26/2022 : 1945 Gender:M Ordering : DR MIRI MONTERO M.D. Admission #: [id number] Family : DR OBDULIO WAN M.D. Order #: [id number] CLICK HERE TO VIEW EXAM ECHOCARDIOGRAM REPORT PROCEDURE: CARDIO PULMONARY ECHOCARDIO M/2D COMP INDICATIONS: Chronic systolic heart failure, H/O [place], CABG AND Stents 06/2020, Ischemic Cardiomyopathy, Pacemaker COMPARISON: None. DESCRIPTION: COMPLETE ECHOCARDIOGRAM Real-time transthoracic echocardiography with 2D, M-mode, spectral and color flow Doppler performed. QUALITY: Technical quality was good. 72 202# 130/72 HR 70 Patient states pacemaker dependent. LEFT VENTRICLE: Normal chamber size. Proximal septal hypertrophy (sigmoid septum). Global left ventricular systolic function is mildly to moderately. The interventricular is abnormal in it's motion as seen in open heart patients. There is global hypokinesis with regional variability. LV EF: Calculated ejection fraction 39%. DIASTOLIC: Diastolic function is indeterminate. ATRIAL SEPTUM: LEFT ATRIUM: Moderate dilatation. RIGHT ATRIUM: Mild dilatation. RIGHT VENTRICLE: Normal chamber size. Normal right ventricular systolic function. Pacer wire present. TRICUSPID VALVE: Normal mobility and thickness. No stenosis with mild regurgitation. No evidence of pulmonary hypertension. RVSP is 29 mmHg MITRAL VALVE: Normal mobility and thickness. No evidence of mitral valve stenosis. Mild mitral annular calcification. Trivial mitral regurgitation. AORTIC VALVE: Normal trileaflet appearance. Mildly calcified aortic valve. No evidence of aortic valve stenosis. Trivial aortic regurgitation. AORTIC ROOT: Normal diameter and appearance. Aorta sinuses normal in size for BSA PULMONIC VALVE: Normal thickness and mobility. No stenosis. Trivial regurgitation. PERICARDIUM: No evidence of pericardial effusion. IVC: Collapses with inspirations. IVC is normal in size. PLEURA: CONCLUSION: 1. Left ventricular systolic function is mildly to moderately reduced. Calculated ejection fraction is 39%. 2. Normal right ventricular size and systolic function. 3. Mild tricuspid regurgitation. 4. Normal right-sided pressures. Adult Echocardiography Procedure Report Left Ventricle LVEDD (3.7 - 5.6 cm): 4.70 cm LVESD (2.2 - 4.0 cm): 3.92 cm LVPW thickness (0.5 - 1.0 cm): 0.93 cm LVOT Max Gradient: 1.72 mm[Hg] Peak Velocity (LVOT): 0.66 m/s LVOT Diameter 2.36 cm Left Ventricular Ejection Fraction: 39% Left Atrium LA Volume Index (2D A2C): 120.15 ml, 120.15 ml Left Atrium Systolic Dimension: 4.90 cm Mitral Valve MV E to A Ratio: 2.37 Mitral Valve A-Wave Peak Velocity: 0.41 m/s Mitral Valve E-Wave Peak Velocity: 0.96 m/s Right Ventricle RV Internal Diastolic Dimension: 3.71 cm Aorta AO Root Diam: 3.81 cm, 3.78 cm Ascending Ao Diam: 3.34 cm Aortic Valve AoV Area (Peak Paxton): 2.62 cm2, 2.62 cm2 Peak Velocity(Antegrade Flow): 1.09 m/s Peak Gradient(Antegrade Flow): 4.74 mm[Hg] Tricuspid Valve Peak Velocity (Regurgitant Flow): 2.24 m/s, 2.47 m/s, 2.54 m/s Peak Velocity: 0.61 m/s Pulmonic Valve Peak Velocity: 0.88 m/s, 0.90 m/s Peak Gradient: 3.11 mm[Hg], 3.22 mm[Hg] Right Atrium Dictated by: Miri Montero M.D. on 08/27/2022 at 19:25 Approved by: Miri Montero M.D. on 08/27/2022 at 19:31 Normal [facility] Cardiovascular Lab Reporton 11-12-2020 Cardiovascular Lab Report [facility] Patient Name: [facility] MR #: [id number] Physician: Miri Pitts Department of Harry Montero Medicine Service Date: 11/12/2020 Division of Birthdate: 1945 Cardiology Room #: [facility] Cardiovascular Services [place] [address] Cardiovascular Laboratory Report INDICATION: The patient is a 75-year-old man who underwent a coronary artery bypass graft in June 2020. In October of 2020, he presented with cnb-SN-[id number] elevation myocardial infarction and acute systolic heart failure with new reduction of left ventricular systolic function, which was severely reduced. He underwent cardiac catheterization on 10/15/2020 that showed evidence of patent KINCAID to the diagonal branch with stenosis at the site of the anastomosis, occluded jump graft from the diagonal branch to the mid LAD, multiple stenotic segments in the vein graft to the RCA, high-grade stenoses in the proximal LAD, high-grade 99% stenosis in the mid LAD at the site of the anastomosis of the jump graft, and 90% stenosis in the mid circumflex, and occlusion of the mid right coronary artery. He was evaluated in a heart team approach together with Cardiothoracic Surgery and was recommended percutaneous intervention. On 10/17/2020, he underwent a percutaneous intervention to the proximal and mid LAD as well as mid circumflex with deployment of a Synergy drug-eluting stent. He is brought today for intervention to the occluded right coronary artery. PROCEDURE: 1. Right coronary artery angiography. 2. 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 3. Administration of intracoronary nitroglycerin. 4. Procedure performed via right radial access. 5. Left heart catheterization. METHODS: Procedure was explained to the patient with risks and benefits. He signed informed consent. He was brought to skilled laborer in a fasting state. The right wrist area was prepped and draped in usual fashion. Modified Faisal's test was favorable on the right. Access in the right radial artery was obtained using micropuncture technique. A 6-Haitian x 11 cm Hydrophilic sheath was advanced. Verapamil was given through the sheath and heparin was administered intravenously. Therapeutic ACT was confirmed during the rest of the procedure. A 6-Haitian JR4 guiding catheter was advanced over the wire and into the left ventricular cavity and used to perform left heart catheterization with measurement of pressures. Pullback across the aortic valve was performed with measurement of pressures. The JR4 guiding catheter was used to engage the right coronary artery. Angiography was performed in multiple views. An exchange length Fielder XT wire was mounted on a FineCross catheter and advanced into the mid RCA and after multiple attempts, we were able to cross into the distal RCA and the FineCross was advanced. Injection of contrast through the FineCross lumen confirmed intraluminal position. Therefore, an exchange length Prowater wire was advanced into the PDA branch and the FineCross was removed. An emerge 2.5 x 20 mm balloon was then advanced and used to perform multiple inflations in the proximal and mid to distal right coronary artery at 12 atmospheres. Angiography revealed recanalization of the artery with significant residual stenosis, therefore a Synergy 2.75 x 38 mm drug-eluting stent was advanced and deployed at 11 atmospheres in the mid right coronary artery segment. The stent balloon was brought backwards and inflated in the proximal to mid segment at 18 atmospheres. Then an NC Quantum [place] 3.0 x 15 mm noncompliant balloon was used to perform post dilatation of the stent at 20 atmospheres and then perform additional dilatation in the proximal RCA at 20 atmospheres. Angiography revealed residual stenosis in the proximal RCA. This was treated using a Synergy 3.0 x 24 mm drug-eluting stent deployed at 14 atmospheres overlapping with the previously deployed stent. An NC Quantum 3.0 x 15 mm noncompliant balloon was advanced and used to treat the area of the overlap and post dilate the proximal stent at 24 atmospheres. This was followed by additional postdilatation using NC Quantum [place] 3.5 x 20 mm noncompliant balloon inflated at 24 atmospheres proximally. Angiography after administration intracoronary nitroglycerin showed excellent result with reduction of the stenosis to 0%, BARBIE-3 flow in the RCA and branches. No evidence of dissection or per (more content not included)... Normal [facility] XR chest 2V*on 12-20-2018 XR chest 2V* [facility] [place] [address] XRay Report Signed Patient: Gus Del Cid MR#: [id number] : 1945 Acct:[id number] Age/Sex: 73 / M ADM Date: 12/20/18 Loc: [facility] Room: Type: [facility] Attending Dr: Filiberto ORELLANA Ordering Provider: Filiberto De Luna Date of Service: 12/20/18 XR/XR chest 2V*: Shortness of breath Copies to: Filiberto De Luna PA AND LATERAL CHEST: CLINICAL HISTORY: Nonproductive cough and shortness of breath for the past week COMPARISON: None There is a left-sided pacemaker. Is mild hyperinflation and minor scarring or atelectasis at the bases. There is no focal parenchymal consolidation, effusion or pneumothorax. The cardiac, hilar and mediastinal silhouettes are within normal limits. There is no vascular congestion. The visualized bony thorax is intact. End plate spurring is seen within the spine. XR/XR chest 2V* IMPRESSION: OBSTRUCTIVE LUNG DISEASE WITH MINOR CHRONIC CHANGE. NO ACUTE CARDIOPULMONARY ABNORMALITY. Impression dictated by: Mónica Knowles M.D.12/20/2018 8:26 PM Dictation Location: [facility] Transcribed By: [facility] 12/20/182025 Dictated By: Mónica Knowles MD 12/20/182024 Signed By: 12/20/182025 [facility] Vital Signs Date Time Vital Sign Value Performing Clinician Facility 11-23-2024 10:58-0500 Body height 180.3 cm Moi Pineda Jr., MD Work Phone: [facility] 11-23-2024 10:58-0500 Body mass index (BMI) [Ratio] 25.66 kg/m2 Moi Pineda Jr., MD Work Phone: [facility] 11-23-2024 10:58-0500 Body weight 83.46 kg Moi Pineda Jr., MD Work Phone: [facility] 11-23-2024 10:58-0500 Diastolic blood pressure 75 mm[Hg] Moi Pineda Jr., MD Work Phone: [facility] 11-23-2024 10:58-0500 Heart rate 59 /min Moi Pineda Jr., MD Work Phone: [facility] 11-23-2024 10:58-0500 Systolic blood pressure 128 mm[Hg] Moi Pineda Jr., MD Work Phone: [facility] 10-19-2024 10:02-0500 Body height 180.3 cm Ginny Echols MD Work Phone: [facility] 10-19-2024 10:02-0500 Body mass index (BMI) [Ratio] 27.06 kg/m2 Ginny Echols MD Work Phone: [facility] 10-19-2024 10:02-0500 Body temperature 97.2 [degF] Ginny Echols MD Work Phone: [facility] 10-19-2024 10:02-0500 Body weight 88 kg Ginny Echols MD Work Phone: [facility] 10-19-2024 10:02-0500 Diastolic blood pressure 70 mm[Hg] Ginny Echols MD Work Phone: [facility] 10-19-2024 10:02-0500 Heart rate 60 /min Ginny Echols MD Work Phone: [facility] 10-19-2024 10:02-0500 SaO2% (BldA) [Mass fraction] 97 % Ginny Echols MD Work Phone: [facility] 10-19-2024 10:02-0500 Systolic blood pressure 128 mm[Hg] Ginny Echols MD Work Phone: [facility] 09-28-2024 13:49-0500 Body height 180.3 cm Moi Pineda Jr., MD Work Phone: [facility] 09-28-2024 13:49-0500 Body mass index (BMI) [Ratio] 27.06 kg/m2 Moi Pineda Jr., MD Work Phone: [facility] 09-28-2024 13:49-0500 Body weight 88 kg Moi Pineda Jr., MD Work Phone: [facility] 09-28-2024 13:49-0500 Diastolic blood pressure 68 mm[Hg] Moi Pineda Jr., MD Work Phone: [facility] 09-28-2024 13:49-0500 Heart rate 60 /min Moi Pineda Jr., MD Work Phone: [facility] 09-28-2024 13:49-0500 Systolic blood pressure 112 mm[Hg] Moi Pineda Jr., MD Work Phone: [facility] 09-14-2024 13:00-0400 Body height 180.3 cm Moi Pineda Jr., MD Work Phone: [facility] 09-14-2024 13:00-0400 Body mass index (BMI) [Ratio] 27.06 kg/m2 Moi Pineda Jr., MD Work Phone: [facility] 09-14-2024 13:00-0400 Body weight 88 kg Moi Pineda Jr., MD Work Phone: [facility] 09-14-2024 13:00-0400 Diastolic blood pressure 80 mm[Hg] Moi Pineda Jr., MD Work Phone: [facility] 09-14-2024 13:00-0400 Heart rate 60 /min Moi Pineda Jr., MD Work Phone: [facility] 09-14-2024 13:00-0400 Systolic blood pressure 137 mm[Hg] Moi Pineda Jr., MD Work Phone: [facility] 07-06-2024 14:13-0400 Body height 180.3 cm Obdulio Wan MD Work Phone: [facility] 07-06-2024 14:13-0400 Body mass index (BMI) [Ratio] 25.66 kg/m2 Obdulio Wan MD Work Phone: [facility] 07-06-2024 14:13-0400 Body weight 83.46 kg Obdulio Wan MD Work Phone: [facility] 07-06-2024 14:13-0400 Diastolic blood pressure 72 mm[Hg] Obdulio Wan MD Work Phone: [facility] 07-06-2024 14:13-0400 Heart rate 67 /min Obdulio Wan MD Work Phone: [facility] 07-06-2024 14:13-0400 SaO2% (BldA) [Mass fraction] 97 % Obdulio Wan MD Work Phone: [facility] 07-06-2024 14:13-0400 Systolic blood pressure 132 mm[Hg] Obdulio Wan MD Work Phone: [facility] 11-25-2023 15:25-0500 Diastolic blood pressure 68 mm[Hg] Laura Saldana MD Work Phone: [facility] 11-25-2023 15:25-0500 Heart rate 78 /min Laura Saldana MD Work Phone: [facility] 11-25-2023 15:25-0500 Systolic blood pressure 104 mm[Hg] Laura Saldana MD Work Phone: [facility] 11-25-2023 15:24-0500 Body height 177.8 cm Laura Saldana MD Work Phone: [facility] 11-25-2023 15:24-0500 Body mass index (BMI) [Ratio] 27.43 kg/m2 Laura Saldana MD Work Phone: [facility] 11-25-2023 15:24-0500 Body weight 86.73 kg Laura Saldana MD Work Phone: [facility] 11-25-2023 15:24-0500 Respiratory rate 18 /min Laura Saldana MD Work Phone: [facility] 05-24-2023 10:18-0400 Body height 180.3 cm Filippo Zarate MD Work Phone: [facility] 05-24-2023 10:18-0400 Body weight 87.09 kg Filippo Zarate MD Work Phone: [facility] 05-24-2023 10:18-0400 Diastolic blood pressure 83 mm[Hg] Filippo Zarate MD Work Phone: [facility] 05-24-2023 10:18-0400 Heart rate 84 /min Filippo Zarate MD Work Phone: [facility] 05-24-2023 10:18-0400 Systolic blood pressure 133 mm[Hg] Filippo Zarate MD Work Phone: [facility] Encounters Encounter Date Encounter Type Care Provider Facility Start: 11-23-2024 End: 11-23-2024 Office outpatient visit 25 minutes Moi Pineda MD Work Phone: [facility] Comment on above: Urologic disorders ( Primary Dx); Gross hematuria; Epididymal mass; Benign prostatic hyperplasia with weak urinary stream Start: 11-23-2024 End: 11-23-2024 ambulatory MOI PINEDA JR [facility] Start: 11-23-2024 End: 11-23-2024 Evaluation and management of inpatient MOI PINEDA JR [facility] Start: 11-02-2024 End: 11-02-2024 [facility] Start: 10-30-2024 End: 10-30-2024 ambulatory [facility] Start: 10-30-2024 End: 10-30-2024 Encounter for preprocedural cardiovascular examination [facility] Start: 10-19-2024 End: 10-19-2024 Office outpatient new 45 minutes Ginny Echols MD Work Phone: 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 (CMS-HCC) Start: 10-02-2024 End: 10-02-2024 ambulatory MOI PINEDA JR [facility] Start: 09-28-2024 End: 09-28-2024 Telephone encounter Moi Pineda MD Work Phone: [facility] Start: 09-28-2024 End: 09-28-2024 Office outpatient visit 25 minutes Moi Pineda MD Work Phone: [facility] Comment on above: Urologic disorders ( Primary Dx); Gross hematuria; Benign prostatic hyperplasia with weak urinary stream; Epididymal mass Start: 09-28-2024 End: 09-28-2024 ambulatory MOI PINEDA JR [facility] Start: 09-27-2024 End: 09-27-2024 ambulatory MOI PINEDA JR [facility] Start: 09-18-2024 End: 09-18-2024 Telephone encounter Moi Pineda MD Work Phone: [facility] Start: 09-18-2024 End: 09-18-2024 ambulatory MOI PINEDA JR [facility] Start: 09-14-2024 End: 09-14-2024 Telephone encounter Thais Erazo [facility] Start: 09-14-2024 End: 09-14-2024 Office consultation new/estab patient 60 min Danica Quach DO Work Phone: [facility] Comment on above: Urologic disorders ( Primary Dx); Urinary tract infection with hematuria, site unspecified; Gross hematuria; Benign prostatic hyperplasia with weak urinary stream Start: 09-14-2024 End: 09-14-2024 ambulatory MOI PINEDA JR [facility] Start: 08-31-2024 End: 08-31-2024 Emergency department patient visit OBDULIO WAN [facility] Start: 08-08-2024 End: 08-08-2024 ambulatory [facility] Start: 07-06-2024 End: 07-06-2024 Office outpatient visit 25 minutes Obdulio Wan MD Work Phone: [facility] Comment on above: Type 2 diabetes yovany itus with stage 2 chronic kidney disease, without long-term current use of insulin (CMS/HCC) (Primary Dx); Coronary artery disease involving kaw coronary artery of kaw heart without angina pectoris (CMS/HCC); Chronic combined systolic and diastolic heart failure (CMS/HCC); Thrombocytopenia, unspecified (CMS/HCC); Emphysema, unspecified (CMS/HCC); Ruptured infrarenal abdominal aortic aneurysm (AAA) (CMS/HCC); Status post percutaneous abdominal aortic aneurysm (AAA) repair Start: 07-06-2024 End: 07-06-2024 ambulatory OBDULIO WAN Not Available Start: 07-06-2024 End: 07-06-2024 [facility] flowsheet Obdulio Wan MD Work Phone: [facility] Start: 07-06-2024 End: 07-06-2024 [facility] flowsheet Obdulio Wan MD Work Phone: [facility] Start: 06-28-2024 End: 06-28-2024 ambulatory [facility] Start: 05-31-2024 End: 06-01-2024 Evaluation and management of inpatient [facility] Start: 05-26-2024 End: 05-26-2024 ambulatory [facility] Start: 05-26-2024 Encounter for other preprocedural examination [facility] Start: 05-11-2024 End: 05-11-2024 ambulatory [facility] Start: 05-08-2024 End: 05-08-2024 ambulatory OBDULIO Lopez [facility] Start: 05-08-2024 End: 05-08-2024 Emergency department patient visit OBDULIO WAN [facility] Start: 05-05-2024 End: 05-06-2024 ambulatory [facility] Start: 05-05-2024 End: 05-06-2024 Emergency department patient visit KONG ROCA [facility] Start: 05-05-2024 End: 05-06-2024 [facility] Start: 05-05-2024 End: 05-05-2024 Emergency department patient visit OBDULIO WAN [facility] Start: 02-24-2024 End: 02-24-2024 ambulatory FLAKITO SANTOS Not Available Start: 02-16-2024 End: 02-16-2024 ambulatory OBDULIO WAN Not Available Start: 02-11-2024 ambulatory MIRI cobos [facility] Start: 02-08-2024 End: 02-08-2024 [facility] Start: 12-22-2023 Clinisync Result Encounter Generic External Data Provider [facility] External Department Unsolicited Start: 12-22-2023 Clinisync Result Encounter Generic External Data Provider [facility] External Department Unsolicited Start: 12-17-2023 End: 12-17-2023 ambulatory MIRI JACKSONMIGUEL [facility] Start: 11-25-2023 End: 11-25-2023 Orders Only Brii Frausto LPN [facility] Comment on above: Abdominal aortic ane urysm (AAA) without rupture, unspecified part ([facility]) (Primary Dx) Start: 11-25-2023 End: 11-25-2023 Office outpatient visit 25 minutes Laura Saldana MD Work Phone: [facility] Comment on above: PAD (peripheral chivo ry disease) ([facility]) (Primary Dx); Infrarenal abdominal aortic aneurysm (AAA) without rupture ([facility]); Claudication ([facility]) Start: 11-18-2023 End: 11-18-2023 ambulatory LAURA SALDANA [facility] Start: 06-09-2023 End: 06-09-2023 ambulatory FILIPPO ELLIOT Facility:[facility] Start: 06-09-2023 End: 06-09-2023 Subsequent hospital visit by physician Card Injection [facility] Comment on above: Biventricular conges tive heart failure (HCC) [I50.82] Start: 06-02-2023 Telephone encounter Filippo bartlett MD Work Phone: Cardiology Comment on above: Received Outside Med [facility] Records Start: 05-27-2023 Telephone encounter Filippo bartlett MD Work Phone: Cardiology Comment on above: Results Start: 05-26-2023 Telephone encounter Filippo bartlett MD Work Phone: Cardiology Comment on above: Patient Update Start: 05-24-2023 End: 05-25-2023 [facility] Start: 05-24-2023 End: 05-24-2023 ambulatory FILIPPO ZARATE Facility:[facility] Start: 05-24-2023 Follow-up encounter Filippo bartlett MD Work Phone: [facility] Start: 05-24-2023 End: 05-24-2023 Patient encounter procedure Filippo Zarate MD Work Phone: [facility] Department Comment on above: Biventricular conges tive heart failure (HCC); Atrial fibrillation with rapid ventricular response (HCC); Type 2 diabetes mellitus without complication, without long-term current use of insulin (HCC); ST elevation (STEMI) myocardial infarction involving left anterior descending coronary artery (HCC); Stable angina pectoris (HCC); Ischemic cardiomyopathy Start: 05-24-2023 End: 05-24-2023 Subsequent hospital visit by physician Serafin Natarajan J1 Work Phone: Radiology Comment on above: Biventricular conges tive heart failure (HCC) [I50.82] Start: 05-24-2023 End: 05-24-2023 ambulatory FILIPPO ZARATE Facility:[facility] Start: 05-24-2023 End: 05-24-2023 ambulatory FILIPPO ZARATE Facility:[facility] Start: 05-17-2023 Telephone encounter Filippo bartlett MD Work Phone: Cardiology Comment on above: Received Referral an d Outside Medical Records Start: 04-06-2023 End: 04-06-2023 Subsequent hospital visit by physician Balaji Peter MD Work Phone: [facility] Comment on above: No Show Start: 04-06-2023 ambulatory [facility] Facility:[facility] Start: 04-06-2023 ambulatory EZEQUIEL GILLILAND Facility:[facility] Start: 02-18-2023 End: 02-19-[address] MAURICE GIVENS Facility: Start: 01-22-2023 ambulatory [facility] Facility:[facility] Start: 11-10-2022 ambulatory [facility] Facility[facility] Start: 10-30-2022 End: 12-17-[address] LAURA SALDANA Facility:[facility] Start: 10-27-2022 End: 10-28-[address] LAURA SALDANA Facility:[facility] Start: 10-13-2022 ambulatory [facility] Facility:[facility] Start: 10-12-2022 ambulatory [facility] Facility:[facility] Start: 10-05-2022 ambulatory [facility] Facility:[facility] Start: 08-26-2022 End: 08-27-[address] MIRI MONTERO Facility:[facility] Start: 07-23-2022 End: 07-24-[address] OBDULIO WAN Facility:[facility] Start: 11-12-2020 End: 11-13-2020 ambulatory OBDULIO WAN Facility:[facility] Start: 12-20-2018 End: 12-20-2018 Patient encounter procedure Filiberto De Luna Facility:[facility] Procedures Date Procedure Procedure Detail Performing Clinician Start: 09-28-2024 Follow-up visit Follow-up MOI PINEDA JR Start: 06-01-2024 Adult depression screening assessment Thais Erazo Start: 12-22-2023 ALL CBC WITH AUTO DIFF Generic External Data Provider Start: 12-22-2023 ALL LIPID PROFILE (FASTING) Generic External Data Provider Start: 12-22-2023 [facility] CMP (CMP) (FOR REMOTE [facility] USE) Generic External Data Provider Start: 11-25-2023 Follow-up visit Follow-up LAURA SALDANA Start: 06-09-2023 Myocardial spect multiple studies Filippo Zarate MD Work Phone: Start: 05-24-2023 Radiologic exam ches t 2 views Filippo Zarate MD Work Phone: Start: 05-24-2023 [facility]EM[facility] CLINIC CHECK Filippo Zarate MD Work Phone: Start: 05-24-2023 PACEMAKER CLINIC CHECK Filippo Zarate MD Work Phone: Start: 05-08-2023 End: 05-08-2023 History of coronary artery bypass grafting S/P CABG (coronary artery bypass graft) Generic Provider Start: 04-06-2023 DEVICE EVALUATION Other Other Plan of Treatment Date Care Activity Detail Author Start: 05-24-2026 DIABETES SCREEN DIABETES SCREEN [facility] Start: 03-23-2026 DIABETES SCREEN [facility]ABETES SCREEN [facility] Start: 11-23-2025 Tobacco Screening Tobacco Screening [facility] Start: 09-28-2025 Tobacco Screening Tobacco Screening [facility] Start: 09-14-2025 Adult BMI Screening Adult BMI Screen ing [facility] Start: 09-14-2025 Tobacco Screening Tobacco Screening [facility] Start: 07-12-2025 End: 07-12-2025 Patient encounter procedure 07/12/2025 9:10 AM EDT Office Visit [facility] [address] [place], [place] [phone] Ginny Echols MD [address], [address] [facility] Start: 06-28-2025 End: 06-28-2025 Patient encounter procedure 06/28/2025 10:40 AM EDT Office [facility] [address] [place], [place] [phone] Ginny Echols MD [address], [facility] [address] [place] [address] [facility] Start: 06-01-2025 Depression Screening Depression Scre ening [facility] Start: 02-22-2025 End: 02-22-2025 Patient encounter procedure 02/22/2025 1:05 PM EDT Office Visit [facility] [address] [place] [phone] Flakito Santos MD [address] [place] [address] [facility] Start: 02-15-2025 Medicare Annual Well ness (AWV) Medicare Annual Wellness (AWV) [facility] Start: 01-04-2025 End: 01-04-2025 Patient encounter procedure 01/04/2025 1:15 PM EST Office Visit [facility] [address] [place] [address] [address] [place] [address] Moi Pineda Jr., MD [address] [place] [phone] [facility] Start: 12-18-2024 End: 11-23-2025 US.doppler Scrotum and testicle Ultrasound scrotum for TORSION with duplex Imaging Routine Epididymal mass Expected: 12/18/2024 (Approximate), Expires: 11/23/2025 [facility] Work Phone: Comment on above: Expected: 12/18/2024 (Approximate), Expires: 11/23/2025 Start: 11-25-2024 Adult BMI Screening Adult BMI Screen ing [facility] Start: 11-25-2024 Tobacco Screening Tobacco Screening [facility] Start: 11-23-2024 End: 11-23-2024 Patient encounter procedure 11/23/2024 11:00 AM EST Office Visit [facility] [address] [place] [address] [address] [place] [address] Moi Pineda Jr., MD [address] [place] [phone] [facility] Start: 11-23-2024 End: 11-23-2024 Admission to same day surgery center 11/23/2024 10:00 AM EST - 11/23/2024 10:30 AM EST Surgery [facility] [address] [place] [phone] Moi Pineda Jr., MD [address] [place] [address] [phone] CYSTOSCOPY [52653 (CPT )] [facility] Comment on above: CYSTOSCOPY [97158 (C PT )] Start: 11-23-2024 End: 11-23-2024 [facility] Start: 11-23-2024 Subsequent hospital visit by physician 11/23/2024 10:00 AM EST Hospital Encounter [facility] [address] [place] [phone] Moi Pineda Jr., MD [address] [place] [phone] [facility] Start: 11-02-2024 Administration of varicella zoster vaccine Zoster (Shingles) Vaccine (2 of 2) [facility] Start: 10-19-2024 End: 10-19-2025 US.doppler Extremity arteries - bilateral for physiologic artery study Vas art doppler lwr bilat mult lev/PVR Vascular Ultrasound Routine Infrarenal abdominal aortic aneurysm (AAA) without rupture ([facility]) 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 ([facility]) Expected: 10/19/2024, Expires: 10/19/2025 [facility] Comment on above: Expected: 10/19/2024 , Expires: 10/19/2025 Start: 10-19-2024 End: 04-19-2026 US.doppler Lower extremity vessel - left for graft Vas art duplex lwr graft scan left Vascular Ultrasound Routine Infrarenal abdominal aortic aneurysm (AAA) without rupture (CMS-HCC) 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 ([facility]) Expected: 10/19/2024, Expires: 04/19/2026 [facility]: Comment on above: Expected: 10/19/2024 , Expires: 04/19/2026 Start: 10-19-2024 End: 10-19-2024 Patient encounter procedure 10/19/2024 10:30 AM EST Office Visit [facility] [address] [place] [phone] Ginny Echols MD [address], [address] [phone] [facility] Start: 10-02-2024 End: 10-02-2024 Patient encounter procedure 10/02/2024 10:30 AM EST Appointment [facility] [address] [place] [phone] [facility] Start: 09-28-2024 End: 09-28-2025 US.doppler Scrotum and testicle Ultrasound scrotum for TORSION with duplex Imaging Routine Epididymal mass Expected: 09/28/2024, Expires: 09/28/2025 [facility] Work Phone: Comment on above: Expected: 09/28/2024 , Expires: 09/28/2025 Start: 09-14-2024 End: 09-14-2025 CT Kidney and Ureter and Urinary bladder 3D post processing WO and W contrast IV CT urogram Imaging Routine Gross hematuria Expected: 09/14/2024, Expires: 09/14/2025 [facility] [employer] Comment on above: Expected: 09/14/2024 , Expires: 09/14/2025 Start: 09-14-2024 End: 09-14-2025 Uroflowmetry Uroflowmetry Procedure Routine Benign prostatic hyperplasia with weak urinary stream Expected: 09/14/2024 (Approximate), Expires: 09/14/2025 [facility] Work Phone: Comment on above: Expected: 09/14/2024 (Approximate), Expires: 09/14/2025 Start: 08-26-2024 Hemoglobin A1c measurement Ariane betes: Hemoglobin A1C [facility] Start: 07-16-2024 COVID-19 Vaccine ( season) COVID-19 Vaccine ( season) [facility] [employer] Start: 07-16-2024 Influenza vaccination [facility] Start: 07-06-2024 End: 07-06-2024 Patient encounter procedure 07/06/2024 2:30 PM EDT Office Visit [facility] [address] [facility] [address] [place] [phone] Obdulio Wan MD [address] [facility] [address] [place], [place] [phone] Arrived [facility] Comment on above: Arrived Start: 05-25-2024 End: 05-25-2024 [facility] Start: 05-19-2024 End: 05-19-2024 Patient encounter procedure 05/19/2024 10:00 AM EDT Appointment [facility] [address] [place] [phone] [facility] Start: 05-13-2024 Urine screening for protein Diabetes: Urine Protein Screening [facility] Start: 02-24-2024 End: 02-24-2024 Patient encounter procedure 02/24/2024 1:50 PM EDT Office Visit [facility] [address] [place] [address] Flakito Santos MD [address] [place] [address] [facility] Start: 12-12-2023 End: 12-12-2024 CTA Abdominal vessels and Pelvis vessels W contrast IV CT angiogram abdomen and pelvis Imaging Routine PAD (peripheral artery disease) ([facility]) Infrarenal abdominal aortic aneurysm (AAA) without rupture ([facility]) Claudication ([facility]) Expected: 12/12/2023, Expires: 12/12/2024 [facility] Work Phone: Comment on above: Expected: 12/12/2023 , Expires: 12/12/2024 Start: 11-25-2023 End: 11-25-2024 CTA Abdominal vessels and Pelvis vessels W contrast IV CT angiogram abdomen and pelvis Imaging Routine Abdominal aortic aneurysm (AAA) without rupture, unspecified part (CMS-HCC) Expected: 11/25/2023, Expires: 11/25/2024 [facility] Work Phone: Comment on above: Expected: 11/25/2023 , Expires: 11/25/2024 Start: 09-03-2023 Medicare Annual Well ness (AWV) Medicare Annual Wellness (AWV) [facility] Start: 07-23-2023 Urine screening for protein Diabetes: Urine Protein Screening [facility] Start: 07-16-2023 Influenza vaccination INFLUENZA (#1) [facility] Start: 06-23-2023 Hemoglobin A1c measurement Ariane betes: Hemoglobin A1C [facility] Start: 05-24-2023 End: 07-24-2023 Comprehensive metabolic 2000 panel - Serum or Plasma [facility] Work Phone: Comment on above: Expected: 05/24/2023 , Expires: 07/24/2023 Start: 05-24-2023 End: 07-24-2023 Natriuretic peptide.B prohormone N-Terminal [Mass/volume] in Serum or Plasma [facility] Work Phone: Comment on above: Expected: 05/24/2023 , Expires: 07/24/2023 Start: 05-24-2023 End: 07-24-2023 Thyrotropin [Units/volume] in Serum or Plasma [facility] Work Phone: Comment on above: Expected: 05/24/2023 , Expires: 07/24/2023 Start: 11-15-2022 ADVANCE DIRECTIVE DISCUSSION ADVANCE DIRECTIVE DISCUSSION [facility] Start: 11-15-2022 DEPRESSION ASSESSMENT DEPRESSION ASS ESSMENT [facility] Start: 01-13-2022 COVID-19 VACCINE (3 - Moderna series) COVID-19 VACCINE (3 - Moderna series) [facility] Start: 01-13-2022 COVID-19 VACCINE (4 - Moderna series) COVID-19 VACCINE (4 - Moderna series) [facility] Start: 10-19-2021 Pneumococcal vaccination PNEUM OCOCCAL VACCINE SERIES (#3) [facility] Start: 10-19-2021 Pneumococcal Vaccine : 65+ Years (3 - PPSV23 or PCV20) Pneumococcal Vaccine: 65+ Years (3 - PPSV23 or PCV20) [facility] Start: 10-19-2021 Pneumococcal Vaccine : 65+ Years (3 of 3 - PPSV23 or PCV20) Pneumococcal Vaccine: 65+ Years (3 of 3 - PPSV23 or PCV20) [facility] Start: 2008 Fall Risk Screening Fall Risk Screen ing [facility] Start: 2008 PNEUMOCOCCAL: 65+ (1 - PCV) PNEUMOCOCCAL: 65+ (1 - PCV) [facility] Start: 1993 Administration of varicella zoster vaccine Zoster (Shingles) Vaccine (1 of 2) [facility] Start: 1993 SHINGRIX VACCINE (1 of 2) ELMORE GRIX VACCINE (1 of 2) [facility] Start: 1993 Zoster vaccine hzv l richard for subcutaneous use ZOSTER (SHINGLES) VACCINE (1 of 2) [facility] Start: 1988 DIABETES SCREEN DIABETES SCREEN [facility] Start: 1988 Screening for malign ant neoplasm of colon COLORECTAL CANCER SCREENING DISCUSSION [facility] Start: 1962 DTaP,Tdap and Td Vac cines (1 - Tdap) DTaP,Tdap and Td Vaccines (1 - Tdap) [facility] Start: 1962 Third diphtheria, te tanus and acellular pertussis (DTaP) vaccination TDAP (ADULT) [facility] Start: 1962 Urine microalbumin profile DTAP,TDAP ,TD (1 - Tdap) [facility] Start: 1961 Adult BMI Follow Up Plan Adult BMI Follow Up Plan [facility] Start: 1955 Depression Screening Depression Scre ening [facility] Start: 1953 Glaucoma screening Diabetes: R etinopathy Screening [facility] Start: 05-07-1944 COVID-19 VACCINE (#1) COVID-19 VACCI NE (#1) [facility] Start: 1943 Hepatitis C screening HEPATITI S C VIRUS SCREENING [facility] Start: 1943 Medicare Annual Well ness Visit Medicare Annual Wellness Visit [facility] Start: 1943 Tetanus vaccination TETANUS [facility] End: 11-25-2024 Creatinine includes GFR, serum Creatinine includes GFR, serum Lab Routine Abdominal aortic aneurysm (AAA) without rupture, unspecified part ([facility]) 1 Occurrences starting 11/25/2023 until 11/25/2024 [facility] Comment on above: 1 Occurrences starti ng 11/25/2023 until 11/25/2024 End: 05-24-2024 Echocardiography ECHO Cardiology Routine Biventricular congestive heart failure (HCC) Atrial fibrillation with rapid ventricular response (HCC) Type 2 diabetes mellitus without complication, without long-term current use of insulin (HCC) Ischemic cardiomyopathy 1 Occurrences starting 05/24/2023 until 05/24/2024 [facility] Work Phone: Comment on above: 1 Occurrences starti ng 05/24/2023 until 05/24/2024 End: 05-24-2024 HOLTER MONITOR 48 HOUR HOLTER MONITOR 48 HOUR ECG Routine Biventricular congestive heart failure (HCC) Atrial fibrillation with rapid ventricular response (HCC) Type 2 diabetes mellitus without complication, without long-term current use of insulin (HCC) 1 Occurrences starting 05/24/2023 until 05/24/2024 [facility] Work Phone: Comment on above: 1 Occurrences starti ng 05/24/2023 until 05/24/2024 End: 06-22-2024 NM CARDIAC PERF STRESS/PHARM NM CARDIAC PERF STRESS/PHARM Radiology Routine Biventricular congestive heart failure (HCC) Atrial fibrillation with rapid ventricular response (HCC) Type 2 diabetes mellitus without complication, without long-term current use of insulin (HCC) Stable angina pectoris (HCC) 1 Occurrences starting 05/24/2023 until 06/22/2024 [facility] Work Phone: Comment on above: 1 Occurrences starti ng 05/24/2023 until 06/22/2024 [facility] Immunizations Immunization Date Immunization Notes Care Provider [facility] 09-07-2024 zoster vaccine, unspecified formulation Thais Erazo [facility] 09-16-2023 Influenza, High-dose Seasonal, Quadrivalent, Preservative Free Obdulio Wan MD Work Phone: [facility] 09-16-2023 influenza virus vacc ine, unspecified formulation Obdulio Wan MD Work Phone: [facility] 09-03-2022 Influenza, High-dose Seasonal, Quadrivalent, Preservative Free Obdulio Wan MD Work Phone: [facility] 08-20-2021 influenza, high dose seasonal, preservative-free Obdulio Wan MD Work Phone: [facility] 10-19-2020 pneumococcal conjuga te vaccine, 13 valent Generic Provider [facility] 04-22-2015 pneumococcal conjuga te vaccine, 13 valent Generic Provider [facility] 04-16-2008 pneumococcal polysaccharide vaccine, 23 valent Generic Provider [facility] Payers Date Payer Category Payer Unknown [id number] 2018 Medicare [id number] 2018 Self-pay 2018 Unknown [id number] 2006 Managed Care Other (unspecified) [facility] [id number] 2006 Private Health Insurance [id number] 2005 Medicare [id number] 1959 Medicare [id number] 1959 Unknown [id number] 1943 Unknown [id number] 2.16.840.1.481876.3.579.2 .647 1943 Unknown [id number] 2.16.840.1.637278.3.579.2 .593 1943 Unknown [id number] 2.16.840.1.623956.3.579.2 .593 1943 Unknown [id number] 2.16.840.1.684833.3.579.2 .593 1943 Unknown [id number] 2.16.840.1.716224.3.579.2 .593 1943 Unknown [id number] 2.16.840.1.492586.3.579.2 .593 1943 Unknown [id number] 2.16.840.1.626678.3.579.2 .594 1943 Unknown [id number] 2.16.840.1.259820.3.579.2 .594 1943 Unknown [id number] 2.16.840.1.330671.3.579.2 .594 1943 Unknown [id number] 2.16.840.1.432835.3.579.2 .594 1943 Unknown [id number] 2.16.840.1.685867.3.579.2 .594 1943 Unknown [id number] 2.16.840.1.278811.3.579.2 .594 1943 Unknown [id number] 2.16.840.1.230478.3.579.2 .594 1943 Unknown [id number] 2.16.840.1.923210.3.579.2 .594 1943 Unknown [id number] 2.16.840.1.002259.3.579.2 .594 1943 Unknown [id number] 2.16.840.1.397572.3.579.2 .594 1943 Unknown [id number] 2.16.840.1.769412.3.579.2 .594 1943 Unknown [id number] 2.16.840.1.677882.3.579.2 .1286 1943 Unknown [id number] 2.16.840.1.405559.3.579.2 .1286 1943 Unknown [id number] 2.16.840.1.612015.3.579.2 .1286 1943 Unknown [id number] 2.16.840.1.032542.3.579.2 .1286 1943 Unknown [id number] 2.16.840.1.795702.3.579.2 .128 1943 Unknown [id number] 2.16.840.1.979964.3.579.2 .128 1943 Unknown [id number] 2.16.840.1.818000.3.579.2 .1259 1943 Unknown [id number] 2.16.840.1.729807.3.579.2 .9 1943 Unknown [id number] 2.16.840.1.250837.3.579.2 .1259 1943 Unknown [id number] 2.16.840.1.927054.3.579.2 .1285 1943 Unknown [id number] 2.16.840.1.516576.3.579.2 .128 1943 Unknown [id number] 2.16.840.1.047385.3.579.2 .1285 1943 Unknown [id number] 2.16.840.1.490513.3.579.2 .128 1943 Unknown [id number] 2.16.840.1.899319.3.579.2 .128 1943 Unknown [id number] 2.16.840.1.500064.3.579.2 .128 1943 Unknown [id number] 2.16.840.1.323877.3.579.2 .1286 1943 Unknown [id number] 2.16.840.1.042031.3.579.2 .1286 1943 Unknown [id number] 2.16.840.1.041210.3.579.2 .6 1943 Unknown [id number] 2.16.840.1.715531.3.579.2 .1286 1943 Unknown [id number] 2.16.840.1.148984.3.579.2 .1286 1943 Unknown [id number] 2.16.840.1.477120.3.579.2 .1286 1943 Unknown [id number] 2.16.840.1.968387.3.579.2 .1285 1943 Unknown [id number] 2.16.840.1.515063.3.579.2 .128 1943 Unknown [id number] 2.16.840.1.195398.3.579.2 .1285 1943 Unknown [id number] 2.16.840.1.825169.3.579.2 .128 1943 Unknown [id number] 2.16.840.1.305165.3.579.2 .6 1943 Unknown [id number] 2.16.840.1.330512.3.579.2 .1286 Unknown [id number] 2.16.840.1.867763.3.579.2 .531 Social History Date Type Detail Facility Tobacco smoking stat us MEIS Tobacco smoking consumption unknown [facility] Start: 1945 Sex Assigned At Not on file [facility] Start: 05-24-2023 End: 05-26-2024 Tobacco smoking status NHIS Ex-smoker [facility] Start: 11-15-1965 End: 11-15-1996 History of tobacco use Current smoker [facility] Start: 11-15-1965 End: 11-15-1996 History of tobacco use Cigarette Smoker [facility] Start: 11-28-2020 End: 07-10-2023 Cigarettes smoked current (pack per day) - Reported 1 [facility] Start: 05-24-2023 End: 05-26-2024 Tobacco use and exposure Smokeless tobacco non-user [facility] Start: 05-24-2023 Alcohol intake Ex-drinker (finding) [facility] Start: 11-28-2020 End: 05-24-2023 Tobacco use panel [facility] National Score (1-10 0), lower number is lower risk 67 [facility] Start: 05-24-2023 Tobacco Comment Quit in the Cl [facility] Start: 11-25-2023 End: 11-23-2024 Alcohol intake Current non-drinker of alcohol (finding) [place] History of tobacco use Passive smoker [employer] Has the [employer], or [employer] threatened to shut off services in your home in past 12Mo No [facility] Start: 06-20-2015 Sex Male (finding) [facility] Start: 07-04-2024 End: 07-06-2024 Alcoholic beverage intake Defer [facility] How often to you hav e a drink containing alcohol? Never [facility] How hard is it for y ou to pay for the very basics like food, housing, medical care, and heating Not very hard [facility] Do you feel stress - tense, restless, nervous, or anxious, or unable to sleep at night because your mind is troubled all the time - these days [OSQ] Only a little [facility] (I/We) worried wheth er (my/our) food would run out before (I/we) got money to buy more. Never true [facility] Medical Equipment Procedure Code Equipment Code Equipment Origin al Text Equipment Identifier Dates Ra Lead-01/04/2003 [id number] Start: 01-04-2003 [employer] Device-07/04/2020 [id number] Start: 07-04-2020 Cardiac pacemaker, device (physical object) ([id number]) [facility] Pacemaker-02/13/2014 [id number] Start: 02-13-2014 Graft Stnt 103mm 14-28mm 18fr Endurant Iis 2 Brch Infrarenal - [id number] - [id number], [id number] FDA Start: 05-31-2024 Graft Stnt 199mm 16-10mm 16fr Endurant Ii Infrarenal Ntnl - [id number] - [id number], [id number] FDA Start: 05-31-2024 Comment on above: Description: RIGHT E XTERNAL ILIAC Graft Stnt 146mm 16mm 16fr Endurant Ii 2 Brch Evas Aaa - [id number] - [id number] Start: 05-31-2024 Comment on above: Description: LEFT CO MMON ILIAC Clinical Notes 07-23-2022 to 12-05-2024 Moi Pineda Jr., MD - 11/23/2024 11:00 AM ESTAssessment & Plan Note - Ginny Echols MD - 10/19/2024 10:43 AM ESTAssessment & Plan Note - Ginny Echols MD - 10/19/2024 10:43 AM EST Note Date & Type Note Facility 12-05-2024 Note Follow-Up Telephone Encounter for Anticoagulation Management Subjective/Objective: INR Performed via Home Monitor: INR 1.8 on 12/05/24 with INR Goal Range: 2-3. Patient Reports: Missed or extra doses: No Changes to medications: No Changes to lifestyle (diet / alcohol / smoking / activity): No Recent health change / ED visit / hospitalization / falls: No Signs/symptoms of bruising or bleeding / clotting or stroke / other SHALOM: No Upcoming procedures: No New prescription needed: No Seen referring provider in last 12 months: Yes Assessment: INR is Subtherapeutic today. Plan: Patient is instructed to continue 21mg/week; 3mg daily. Check INR in 2 weeks. Patient Education: Patient provided with dosing and follow-up instructions. Patient reminded to seek medical attention if experiencing any signs/symptoms of bleeding or clotting. Patient aware to call with questions or changes to medications or medical status. Tanja York PharmD [facility] 11-23-2024 History of Present illness Narrative Images from the original note were not included. [address] [place] [id number] Patient: Gus Del Cid Date of : 1945 Encounter Date: 11/23/2024 History of Present Illness: Chief Complaint: follow up benign prostatic hyperplasia, gross hematuria associated with UTI, and bladder diverticuli and epididymal lesion. See below Urinalysis today: No results for input(s): EXTPOCURCO , EXTPOCURCH , EXTPOCAPP , EXTPOCURBS , EXTPOCURBIL , EXTPOCUKET , EXTPOCUSPG , EXTPOCUHGB , EXTPOCUPRO , EXTPOCUURO , EXTPOCULEU , EXTPOCUNIT , EXTPOCUWBC , EXTPOCUBLD , EXTPOCURBC , EXTPOCUCRY , EXTPOCUBAC , EXTPOCUTREP , EXTPOCUPH , EXTPOCULEE in the last 72 hours. Last BUN and creatinine: Lab Results Component Value Date BUN 16 08/31/2024 Lab Results Component Value Date CREATININE 1.03 08/31/2024 Last PSA: No results found for: PSA No results found for: PROSTATICSP Past Medical, Family, and Social History Update: The following portions of the patient's history were reviewed and updated as appropriate: allergies, current medications, past family history, past medical history, past social history, past surgical history and problem list. Past Medical History: Diagnosis Date AAA (abdominal aortic aneurysm) ([facility]) 05/2024 Anemia Arthritis Atrial fibrillation ([facility]) Atrial flutter ([facility]) Bilateral lower extremity edema no longer on diuretic CAD (coronary artery disease) stents and cabg Carotid bruit CHF (congestive heart failure) ([facility]) Cholelithiasis Possible by CT 08/31/2024 CKD (chronic kidney disease), stage II Claudication ([facility]) Congenital heart disease pt denies Deep vein thrombosis ([facility]) 1990s left Diabetes mellitus type 2, controlled ([facility]) Diverticulosis SAM (dyspnea on exertion) Gait instability GERD (gastroesophageal reflux disease) GI bleed 04/2024 Heart disease Hiatal hernia HL (hearing loss) nicko does not wear aides Hypertension Myocardial infarction ([facility]) 2020 Orthostatic dizziness Pacemaker PAF (paroxysmal atrial fibrillation) ([facility]) Pseudoaneurysm of femoral artery ([facility]) With thrombosis, adjacent soft tissue thickening suggested from catheterization Psoriasis Pulmonary embolism ([facility]) years ago PVD (peripheral vascular disease) ([facility] Skin cancer basal cell nose ,squamous cell right arm ear Thrombocytopenia ([facility]) Uses walker Varicose veins of both lower extremities Wears dentures upper and lower Yeast infection 04/2024 Past Surgical History: Procedure Laterality Date CARDIAC CATHETERIZATION 5 stents CARDIAC PACEMAKER PLACEMENT Left Lateral 07/07/2023 01/04/23 COLONOSCOPY N/A 09/08/2018 Performed by Ty Vasquez MD at [facility] CORONARY ANGIOPLASTY WITH STENT PLACEMENT 11/12/2020 10/17/2020 5 stents total CORONARY ARTERY BYPASS GRAFT 06/2020 ENDOGRAFT BYPASS ABDOMINAL AORTA Bilateral 05/31/2024 Performed by Ginny Echols MD at [facility] FEMORAL BYPASS Left 2004 GROIN EXPLORATION WITH REPAIR OF BYPASS GRAFT WITH PATCH ANGIOPLASTY Left 05/31/2024 Performed by Ginny Echols MD at [facility] VASCULAR SURGERY Left 2010 leg Family History Problem Relation Age of Onset Heart disease Mother Heart disease Father Anesthesia problems Neg Hx Current Outpatient Medications Medication Sig Dispense Refill amLODIPine (NORVASC) 5 mg tablet Take 1 tablet (5 mg total) by mouth in the morning. Indications: high blood pressure. clopidogreL (PLAVIX) 75 mg tablet Take 1 tablet (75 mg total) by mouth in the morning. Indications: myocardial reinfarction prevention. dapagliflozin propanediol (FARXIGA) 10 mg tablet Take 1 tablet (10 mg total) by mouth in the morning. Indications: chronic heart failure, type 2 diabetes mellitus. Patient yeast inf. Cleared up. eplerenone (INSPRA) 25 mg tablet Take 1 tablet (25 mg total) by mouth in the morning. Indications: heart failure after a heart attack. metoprolol succinate XL (TOPROL XL) 100 mg 24 hr tablet Take 1.5 tablets (150 mg total) by mouth in the morning and at bedtime. heart omeprazole (PriLOSEC) 40 mg capsule Take 1 capsule (40 mg total) by mouth in the morning. Indications: gastroesophageal reflux disease. rosuvastatin (CRESTOR) 5 mg tablet Take 1 tablet (5 mg total) by mouth once daily at bedtime Indications: excessive fat in the blood. sacubitriL-valsartan (ENTRESTO) 97-103 mg tablet Take 1 tablet by mouth in the morning and 1 tablet before bedtime. Indications: chronic heart failure. warfarin (COUMADIN) 3 mg tablet Take 1 tablet (3 mg total) by mouth every morning. tamsulosin (FLOMAX) 0.4 mg capsule Take 1 capsule (0.4 mg total) by mouth nightly. 90 capsule 3 No current facility-administered medications for this visit. (All medications reviewed and updated by provider since last office visit or hospitalization) Allergies: Morphine, Atorvastatin, and Simvastatin Tobacco History: Social History Tobacco Use Smoking Status Former Average packs/day: 1 pack/day for 29.0 years (29.0 ttl pk-yrs) Types: Cigarettes Start date: 1965 Passive exposure: Past Smokeless Tobacco Never (If patient a smoker, smoking cessation counseling offered) Social History: Social History Substance and Sexual Activity Alcohol Use No Review of Systems: General: Negative for chills and fever. Cardiovascular: Negative for chest pain and shortness of breath. Gastrointestinal: Negative for constipation, diarrhea, nausea, and vomitting. -per HPI Physical Exam: BP 128/75 Pulse 59 Ht 180.3 cm (5' 11 ) Wt 83.5 kg (184 lb) BMI 25.66 kg/m alert, pleasant, without signs of acute illness, and in no distress. Respirations unlabored . Skin dry on examination now. Testicles descended bilaterally without mass or tenderness. Small right epididymal firmness improved from previously nontender and without any evidence of infection. Assessment and Plan: Gus was seen today for follow-up. Diagnoses and all orders for this visit: Urologic disorders Gross hematuria Epididymal mass - Ultrasound scrotum for TORSION with duplex; Future Benign prostatic hyperplasia with weak urinary stream Other orders - tamsulosin (FLOMAX) 0.4 mg capsule; Take 1 capsule (0.4 mg total) by mouth nightly. Problem List Unprioritized Urologic disorders - Primary Overview 1. Serratia marcescens UTI 08/31/[address] [facility] emergency department; [place] 2. Endovascular repair Abdominal aortic aneurysm 3. Coronary artery disease status post [place], diabetes, chronic kidney disease, atrial fibrillation/flutter, history of pulmonary embolism, peripheral vascular disease, chronic thrombocytopenia with initial gross hematuria also with frequency, urgency, and difficulty voiding and flank pain 08/29/2024 with suspected stone passage and proven Serratia marcescens urinary infection complicated by Plavix and Coumadin use 4. Right epididymal tail 2.4 cm lesion ultrasound 08/31/2024 infectious versus neoplastic , decreased size ultrasound 10/02/2024 5. Left 6 mm epididymal complex cyst ultrasound 08/31/2024 6. Bilateral simple renal cysts CT 08/31/2024 7. urolithiasis; by history always right-sided multiple stone passages and multiple endoscopic extractions and ESWL procedures /; tiny right renal calcification to my view CT 08/31/2024 8. Possible family history urolithiasis; father status post nephrectomy 9. Benign prostatic hyperplasia with obstruction 100 g trilobar hyperplasia cystoscopy 11/23/2024 with baseline nocturia every 2 hours and decreased urinary stream 10. Flow 09/27/2024 peak and mean 8 and 3 PVR 14 11. Right and possible left renal artery stenosis CT urogram 09/18/2024 with patient referred to established vascular surgeon 09/28/[address] report 09/18/2024 bilateral several calyceal 3 mm diverticuli without stones 13. Multiple bladder diverticuli cystoscopy 11/23/2024 14. The need for bladder diverticulum surveillance described 11/23/2024. Gross hematuria Epididymal mass Relevant Orders Ultrasound scrotum for TORSION with duplex Benign prostatic hyperplasia with weak urinary stream Follow-up: Patient returns following today's cystoscopy doing well, but he has had some issues with epistaxis and material he extracted from his nose about which he has concern. To me it simply looks like some blood with typical nasal passage, but I did request he follow that up with primary care. We reviewed his very substantial benign prostatic hyperplasia with obstruction and multiple small bladder diverticuli, thankfully free of any bladder stones or tumors. We discussed the pathophysiology of obstructive uropathy and treatments including observation, pharmacotherapy, or surgery. He would like to try pharmacotherapy, which I think is very reasonable. The need for periodic cystoscopic surveillance secondary to increased risk of tumor and stone formation within bladder diverticuli was reviewed Today. I prescribed Flomax 0.4 milligrams nightly and warned about dizziness. Return otherwise 1 month with confirmatory scrotal ultrasound and exam to follow his improving right epididymal lesion. The patient/family are to call for fever, bleeding, signs of infection, urinary retention, malfunction of any urinary catheters, chest pain, shortness of breath, swelling or pain in lower extremities, or any other problems.. . MOI PINEDA JR, MD This note was created with the assistance of a speech recognition program. While intending to generate a timely document that accurately reflects the content of the visit, no guarantee can be provided that every grammatical or spelling mistake has been or will be identified or corrected. Thank you for your understanding. [facility] encounter [facility]-20[facility]24 Note Follow-Up Telephone Encounter for Anticoagulation Management Subjective/Objective: INR Performed via Home Monitor: INR 1.9 on 11/20/2024 with INR Goal Range: 2-3. Patient Reports: Missed or extra doses: No Changes to medications: No Changes to lifestyle (diet / alcohol / smoking / activity): No Recent health change / ED visit / hospitalization / falls: No Signs/symptoms of bruising or bleeding / clotting or stroke / other SHALOM: No Upcoming procedures: Yes cystoscopy on 11/23 but does not need to hold warfarin New prescription needed: No Seen referring provider in last 12 months: Yes Assessment: INR is Subtherapeutic today. Plan: 3 mg every day Patient is instructed to Check INR in 2 weeks. Patient Education: Patient provided with dosing and follow-up instructions. Patient reminded to seek medical attention if experiencing any signs/symptoms of bleeding or clotting. Patient aware to call with questions or changes to medications or medical status. Korina Bryant RN [facility] 10-30-2024 Note [facility] Subjective Gus Del Cid is a 78 y.o. year old male patient being seen for 6 mo follow up chronic systolic heart failure, CAD, PAF, and hypertension. Had vascular surgery in May [address] Echols. He's been having issues with UTI and gross hematuria since Aug 2024, and sees urology at [facility]. This has cleared up he says but he still has follow up coming up. Says he's doing well from cardiac standpoint. Patient Active Problem List Diagnosis Persistent atrial fibrillation (CMS/HCC) Abdominal aortic aneurysm (CMS/HCC) Cardiac pacemaker in situ Chest pain Chronic systolic heart failure (CMS/HCC) Conduction disorder of the heart Coronary arteriosclerosis Dyspnea Edema of lower extremity Essential hypertension Hypertensive disorder Peripheral vascular disease (CMS/HCC) Chronic atrial fibrillation (CMS/HCC) Paroxysmal atrial fibrillation (CMS/HCC) Cardiomyopathy, ischemic Acute respiratory distress syndrome (ARDS) (CMS/HCC) Diabetes mellitus (CMS/HCC) Disorder of vein Edema Esophageal dysphagia Gastro-esophageal reflux disease without esophagitis GI bleed Rhinorrhea 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 Social History Tobacco Use Smoking status: Never Smokeless tobacco: Never Substance Use Topics Alcohol use: Never HPI Mr. Del Cid is seen in follow-up. He also needs to undergo abdominal aortic surgery and needs preoperative evaluation for that. He is a 78-year-old man with prior history of CAD s/p CABG, HFrEF - EF 25% 09/2020, a.fib s/p OSVALDO atriclip, dual chamber PM, AAA, HTN, PVD s/p femoraopoplietal bypass, moderate pHTN, iliac aorta aneurysm s/p left fem-pop maintained on coumadin (follows with Dr. Alcocer). Late 2019, he was admitted to [facility] for unstable angina. He was found to have occluded grafts. CT surgery recommended PCI. He underwent stenting of the LADx2 and LCX on 10/17/20. He then underwent a staged PCI of RCA on 11/12/20 where he had 2 MELYSSA placed. Echocardiogram in January 2021 showed EF remains reduced at 28%, proBNP was also elevated. We switched him from lisinopril to Entresto 24/26mg BID. On future visits his heart failure therapy was optimized. His cardiac MRI in March 2023 showed an ejection fraction of 34%. There was inability to successfully upgrade to CHECK VIEWER-D in April [address] Ezequiel Gilliland due to brachiocephalic vein stenosis and scarring. He was referred to [facility]. He was then recommended to undergo a stress test which showed very small amount of ischemia and ejection fraction within normal range. He was told at the [facility] that the risks of attempted upgrade are not justified. His stress test showed evidence of ischemia less than 10% involving the circumflex territory and after discussing that with him we decided to continue medical therapy and avoid intervention which would have low yield of benefit. He then underwent pacemaker generator change on 07/07/[address] Ezequiel Gilliland. I saw him on 05/11/2024 and due to gynecomastia I stopped spironolactone and changed it to eplerenone 25 mg once daily. I also discontinued Farxiga due to genital yeast infection. Since then he underwent AAA surgery on 05/31/2024. today he reports that he had resumed Farxiga which is helping control his diabetes. He has not had recurrence of genital yeast infection. Recently he has had hematuria and will be undergoing cystoscopy by urology soon. His blood pressure today is elevated. He does not check it at home. He does not have chest pain. He has no shortness of breath on exertion, NYHA class I. He has mild occasional bilateral lower extremity edema. Review of Systems Constitutional: Positive for malaise/fatigue. Cardiovascular: Positive for leg swelling (minimal). Hematologic/Lymphatic: Bruises/bleeds easily. Genitourinary: Positive for hematuria. All other systems reviewed and are negative. Objective Visit Vitals BP 152/76 (BP Location: Left arm, Patient Position: Sitting) Pulse 60 Ht 1.829 m (6') Wt 83.9 kg (185 lb) SpO2 97% BMI 25.09 kg/m??? Smoking Status Never BSA 2.06 m??? Physical Exam Constitutional: Appearance: He is well-developed. He is not ill-appearing. HENT: Head: Normocephalic and atraumatic. Nose: Nose normal. Eyes: General: No scleral icterus. Pupils: Pupils are equal, round, and reactive to light. Neck: Thyroid: No thyromegaly. Vascular: No JVD. Cardiovascular: Rate and Rhythm: Normal rate and regular rhythm. Pulses: Radial pulses are 2+ on the right side and 2+ on the left side. Heart sounds: Normal heart sounds. No murmur heard. No fricti (more content not included)... 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 To: OBDULIO WAN MD HPI: Gus Del Cid is a 78 y.o. male with recent CT urogram that showed concern of left femoral pseudoaneurysm and thrombosis. Of note I did EVAR and revision of her lower extremity bypass. He had a CT angiogram that shows intact repair and successful exclusion of the aneurysm. There is no pseudoaneurysm in the left groin in the CTA. I reviewed the CT urogram images and I did not see a pseudoaneurysm. However to be safe I am going to get arterial duplex ultrasound and we will get an updated PVR as well. He will continue his Coumadin Plavix and risk factors modification. Review of Systems: Review of Systems Constitutional: Negative. HENT: Negative. Respiratory: Negative. Cardiovascular: Negative. Gastrointestinal: Negative. Endocrine: Negative. Genitourinary: Negative. Musculoskeletal: Negative. Skin: Negative. Neurological: Negative. Hematological: Negative. Medications: Current Outpatient Medications on File Prior to Visit Medication Sig Dispense Refill amLODIPine (NORVASC) 5 mg tablet Take 1 tablet (5 mg total) by mouth in the morning. Indications: high blood pressure. clopidogreL (PLAVIX) 75 mg tablet Take 1 tablet (75 mg total) by mouth in the morning. Indications: myocardial reinfarction prevention. dapagliflozin propanediol (FARXIGA) 10 mg tablet Take 1 tablet (10 mg total) by mouth in the morning. Indications: chronic heart failure, type 2 diabetes mellitus. Patient yeast inf. Cleared up. eplerenone (INSPRA) 25 mg tablet Take 1 tablet (25 mg total) by mouth in the morning. Indications: heart failure after a heart attack. metoprolol succinate XL (TOPROL XL) 100 mg 24 hr tablet Take 1.5 tablets (150 mg total) by mouth in the morning and at bedtime. heart omeprazole (PriLOSEC) 40 mg capsule Take 1 capsule (40 mg total) by mouth in the morning. Indications: gastroesophageal reflux disease. rosuvastatin (CRESTOR) 5 mg tablet Take 1 tablet (5 mg total) by mouth once daily at bedtime Indications: excessive fat in the blood. sacubitriL-valsartan (ENTRESTO) 97-103 mg tablet Take 1 tablet by mouth in the morning and 1 tablet before bedtime. Indications: chronic heart failure. warfarin (COUMADIN) 3 mg tablet Take 1 tablet (3 mg total) by mouth every morning. No current facility-administered medications on file prior to visit. Past Medical History: Past Medical History: Diagnosis Date AAA (abdominal aortic aneurysm) ([facility]) 05/2024 Anemia Arthritis Atrial fibrillation ([facility]) Atrial flutter ([facility]) Bilateral lower extremity edema no longer on diuretic CAD (coronary artery disease) stents and cabg Carotid bruit CHF (congestive heart failure) ([facility]) Cholelithiasis Possible by CT 08/31/2024 CKD (chronic kidney disease), stage II Claudication ([facility]) Congenital heart disease pt denies Deep vein thrombosis ([facility]) 1990s left Diabetes mellitus type 2, controlled ([facility]) Diverticulosis SAM (dyspnea on exertion) Gait instability GERD (gastroesophageal reflux disease) GI bleed 04/2024 Heart disease Hiatal hernia HL (hearing loss) nicko does not wear aides Hypertension Myocardial infarction ([facility]) 2019 Orthostatic dizziness Pacemaker PAF (paroxysmal atrial fibrillation) ([facility]) Pseudoaneurysm of femoral artery ([facility]) With thrombosis, adjacent soft tissue thickening suggested from catheterization Psoriasis Pulmonary embolism ([facility]) years ago PVD (peripheral vascular disease) ([facility]) Skin cancer basal cell nose ,squamous cell right arm ear Thrombocytopenia ([facility]) Uses walker Varicose veins of both lower extremities Wears dentures upper and lower Yeast infection 04/2024 Past Surgical History: Past Surgical History: Procedure Laterality Date CARDIAC CATHETERIZATION 5 stents CARDIAC PACEMAKER PLACEMENT Left Lateral 07/07/2023 01/04/23 COLONOSCOPY N/A 09/08/2018 Performed by Ty Vasquez MD at [facility] CORONARY ANGIOPLASTY WITH STENT PLACEMENT 11/12/2020 10/17/2020 5 stents total CORONARY ARTERY BYPASS GRAFT 06/2020 ENDOGRAFT BYPASS ABDOMINAL AORTA Bilateral 05/31/2024 Performed by Ginny Echols MD at [facility] PROC FEMORAL BYPASS Left 2005 GROIN EXPLORATION WITH REPAIR OF BYPASS GRAFT WITH PATCH ANGIOPLASTY Left 05/31/2024 Performed by Ginny Echols MD at [facility] PROC VASCULAR SURGERY Left 2011 leg Social and Family History: Social History Socioeconomic History Marital status: Spouse name: Not on file Number of children: Not on file Years of education: Not on file Highest education level: Not on file Occupational History Not on file Tobacco Use Smoking status: Former Average packs/day: 1 pack/day for 29.0 years (29.0 ttl pk-yrs) Types: Cigarettes Start date: 1965 Passive exposure: Past Smokeless tobacco: Never Vaping Use Vaping status: Never Used Substance and Sexual Activity Alcohol use: No Drug use: No Sexual activity: Defer Other Topics Concern Not on file Social History Narrative Not on file Social Drivers of Health Financial Resource Strain: Low Risk (06/01/2024) Overall Financial Resource Strain (CARDIA) Difficulty of Paying Living Expenses: Not hard at all Food Insecurity: No Food Insecurity (10/19/2024) Hunger Screening Food Insecurity - Worry: Never True Food Insecurity - Inability: Never True Transportation Needs: No Transportation Needs (06/01/2024) PRAPARE - Transportation Lack of Transportation (Medical): No Lack of Transportation (Non-Medical): No Physical Activity: Inactive (05/16/2024) Received from [facility] Exercise Vital Sign Days of Exercise per Week: 0 days Minutes of Exercise per Session: 0 min Stress: No Stress Concern Present (05/16/2024) Received from [facility] [employer] [place] [employer] - Occupational Stress Questionnaire Feeling of Stress : Only a little Social Connections: Not on file Interpersonal Safety: Not At Risk (08/17/2024) Received from [facility] Humiliation, Afraid, Rape, and Kick questionnaire Fear of Current or Ex-Partner: No Emotionally Abused: No Physically Abused: No Sexually Abused: No Housing Instability: Low Risk (06/01/2024) Housing Instability Housing Instability: No Family History Problem Relation Age of Onset Heart disease Mother Heart disease Father Anesthesia problems Neg Hx Recent Labs: Recent and relative labs were reviewed and interpreted and contributed to the assessment and plan below. Vitals: BP 128/70 (BP Site: Left Arm, BP Postition: Sitting, BP CUFF SIZE: M (9-13 inches)) Pulse 60 Temp 36.2 C (97.2 F) (Temporal) Ht 180.3 cm (5' 11 ) Wt 88 kg (194 lb) SpO2 97% BMI 27.06 kg/m Body mass index is 27.06 kg/m . Physical Exam: Physical Exam Constitutional: Appearance: Normal appearance. HENT: Head: Normocephalic and atraumatic. Mouth/Throat: Mouth: Mucous membranes are moist. Eyes: Extraocular Movements: Extraocular movements intact. Pupils: Pupils are equal, round, and reactive to light. Cardiovascular: Rate and Rhythm: Normal rate and regular rhythm. Pulmonary: Effort: Pulmonary effort is normal. Breath sounds: Normal breath sounds. Abdominal: General: Abdomen is flat. Bowel sounds are normal. Palpations: Abdomen is soft. Musculoskeletal: General: Normal range of motion. Cervical back: Normal range of motion. Skin: General: Skin is warm and dry. Neurological: General: No focal deficit present. Mental Status: He is alert and oriented to person, place, and time. Mental status is at baseline. Psychiatric: Mood and Affect: Mood normal. Behavior: Behavior normal. Thought Content: Thought content normal. Judgment: Judgment normal. 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 While intending to generate a timely document that accurately reflects the content of the visit, no guarantee can be provided that every grammatical or spelling mistake has been or will be identified or corrected. Thank you for your understanding. documented in this encounter [facility] 10-16-2024 Note Follow-Up Telephone Encounter for Anticoagulation Management Subjective/Objective: INR Performed via Home Monitor: INR 2.3 on 10/16/24 with INR Goal Range: 2-3. Patient Reports: Missed or extra doses: No Changes to medications: No Changes to lifestyle (diet / alcohol / smoking / activity): No Recent health change / ED visit / hospitalization / falls: No Signs/symptoms of bruising or bleeding / clotting or stroke / other SHALOM: No Upcoming procedures: No New prescription needed: No Seen referring provider in last 12 months: Yes Assessment: INR is Therapeutic today. Plan: Patient is instructed to continue on 21mg/week; 3mg daily. Check INR in 2 weeks. Patient Education: Patient provided with dosing and follow-up instructions. Patient reminded to seek medical attention if experiencing any signs/symptoms of bleeding or clotting. Patient aware to call with questions or changes to medications or medical status. Tanja York PharmD [facility] 10-02-2024 Note Unable to reach pt. Home number listed not working and VM on cell is full. Unable to leave message [facility] 10-02-2024 Note Follow-Up Telephone Encounter for Anticoagulation Management Subjective/Objective: INR Performed via Home Monitor: INR 2.3 on 09/29/24 with INR Goal Range: 2-3. Patient Reports: Missed or extra doses: No Changes to medications: No Changes to lifestyle (diet / alcohol / smoking / activity): No Recent health change / ED visit / hospitalization / falls: No Signs/symptoms of bruising or bleeding / clotting or stroke / other SHALOM: No Upcoming procedures: No New prescription needed: Yes Seen referring provider in last 12 months: Yes Assessment: INR is Therapeutic today. Plan: Patient is instructed to continue 21 mg/wk. Check INR in 2 weeks. Patient Education: Patient provided with dosing and follow-up instructions. Patient reminded to seek medical attention if experiencing any signs/symptoms of bleeding or clotting. Patient aware to call with questions or changes to medications or medical status. Ra Wadsworth, PharmD [facility] 09-28-2024 Miscellaneous Notes Hematuria-cystoscopy, local, [facility] soon, 30 minutes, office appointment to follow same day documented in this encounter [facility] 09-28-2024 Telephone encounter Note Hematuria-cystoscopy, local, [facility] soon, 30 minutes, office appointment to follow same day [facility] 09-28-2024 History of Present illness Narrative Images from the original note were not included. [address] [place] [address] [address] [facility] [id number] Patient: Gus Del Cid Date of : 1945 Encounter Date: 09/28/2024 History of Present Illness: Chief Complaint: Follow up UTI, epididymal lesion, urolithiasis, and benign prostatic hyperplasia. See below Urinalysis today: No results for input(s): EXTPOCURCO , EXTPOCURCH , EXTPOCAPP , EXTPOCURBS , EXTPOCURBIL , EXTPOCUKET , EXTPOCUSPG , EXTPOCUHGB , EXTPOCUPRO , EXTPOCUURO , EXTPOCULEU , EXTPOCUNIT , EXTPOCUWBC , EXTPOCUBLD , EXTPOCURBC , EXTPOCUCRY , EXTPOCUBAC , EXTPOCUTREP , EXTPOCUPH , EXTPOCULEE in the last 72 hours. Last BUN and creatinine: Lab Results Component Value Date BUN 16 08/31/2024 Lab Results Component Value Date CREATININE 1.03 08/31/2024 Last PSA: No results found for: PSA No results found for: PROSTATICSP Past Medical, Family, and Social History Update: The following portions of the patient's history were reviewed and updated as appropriate: allergies, current medications, past family history, past medical history, past social history, past surgical history and problem list. Past Medical History: Diagnosis Date AAA (abdominal aortic aneurysm) ([facility]) 05/2024 Anemia Arthritis Atrial fibrillation ([facility]) Atrial flutter ([facility]) Bilateral lower extremity edema no longer on diuretic CAD (coronary artery disease) stents and cabg Carotid bruit CHF (congestive heart failure) ([facility]) Cholelithiasis Possible by CT 08/31/2024 CKD (chronic kidney disease), stage II Claudication ([facility]) Congenital heart disease pt denies Deep vein thrombosis ([facility]) 1990s left Diabetes mellitus type 2, controlled ([facility]) Diverticulosis SAM (dyspnea on exertion) Gait instability GERD (gastroesophageal reflux disease) GI bleed 04/2024 Heart disease Hiatal hernia HL (hearing loss) nicko does not wear aides Hypertension Myocardial infarction ([facility]) 2019 Orthostatic dizziness Pacemaker PAF (paroxysmal atrial fibrillation) ([facility]) Pseudoaneurysm of femoral artery ([facility]) With thrombosis, adjacent soft tissue thickening suggested from catheterization Psoriasis Pulmonary embolism ([facility]) years ago PVD (peripheral vascular disease) ([facility]) Skin cancer basal cell nose ,squamous cell right arm ear Thrombocytopenia ([facility]) Uses walker Varicose veins of both lower extremities Wears dentures upper and lower Yeast infection 04/2024 Past Surgical History: Procedure Laterality Date CARDIAC CATHETERIZATION 5 stents CARDIAC PACEMAKER PLACEMENT Left Lateral 07/07/2023 01/04/23 COLONOSCOPY N/A 09/08/2018 Performed by Ty Vasquez MD at [facility] CORONARY ANGIOPLASTY WITH STENT PLACEMENT 11/12/2020 10/17/2020 5 stents total CORONARY ARTERY BYPASS GRAFT 06/2020 ENDOGRAFT BYPASS ABDOMINAL AORTA Bilateral 05/31/2024 Performed by Ginny Echols MD at [facility] PROC FEMORAL BYPASS Left 2004 GROIN EXPLORATION WITH REPAIR OF BYPASS GRAFT WITH PATCH ANGIOPLASTY Left 05/31/2024 Performed by Ginny Echols MD at [facility] SPECIAL PROC VASCULAR SURGERY Left 2010 leg Family History Problem Relation Age of Onset Heart disease Mother Heart disease Father Anesthesia problems Neg Hx Current Outpatient Medications Medication Sig Dispense Refill amLODIPine (NORVASC) 5 mg tablet Take 1 tablet (5 mg total) by mouth in the morning. Indications: high blood pressure. clopidogreL (PLAVIX) 75 mg tablet Take 1 tablet (75 mg total) by mouth in the morning. Indications: myocardial reinfarction prevention. dapagliflozin propanediol (FARXIGA) 10 mg tablet Take 1 tablet (10 mg total) by mouth in the morning. Indications: chronic heart failure, type 2 diabetes mellitus. Patient yeast inf. Cleared up. eplerenone (INSPRA) 25 mg tablet Take 1 tablet (25 mg total) by mouth in the morning. Indications: heart failure after a heart attack. metoprolol succinate XL (TOPROL XL) 100 mg 24 hr tablet Take 1.5 tablets (150 mg total) by mouth in the morning and at bedtime. heart omeprazole (PriLOSEC) 40 mg capsule Take 1 capsule (40 mg total) by mouth in the morning. Indications: gastroesophageal reflux disease. rosuvastatin (CRESTOR) 5 mg tablet Take 1 tablet (5 mg total) by mouth once daily at bedtime Indications: excessive fat in the blood. sacubitriL-valsartan (ENTRESTO) 97-103 mg tablet Take 1 tablet by mouth in the morning and 1 tablet before bedtime. Indications: chronic heart failure. warfarin (COUMADIN) 3 mg tablet Take 1 tablet (3 mg total) by mouth every morning. No current facility-administered medications for this visit. (All medications reviewed and updated by provider since last office visit or hospitalization) Allergies: Morphine, Atorvastatin, and Simvastatin Tobacco History: Social History Tobacco Use Smoking Status Former Average packs/day: 1 pack/day for 29.0 years (29.0 ttl pk-yrs) Types: Cigarettes Start date: 1965 Passive exposure: Past Smokeless Tobacco Never (If patient a smoker, smoking cessation counseling offered) Social History: Social History Substance and Sexual Activity Alcohol Use No Review of Systems: General: Negative for chills and fever. Cardiovascular: Negative for chest pain and shortness of breath. Gastrointestinal: Negative for constipation, diarrhea, nausea, and vomitting. -per HPI Physical Exam: BP 112/68 Pulse 60 Ht 180.3 cm (5' 11 ) Wt 88 kg (194 lb) BMI 27.06 kg/m Alert, pleasant, without signs of acute illness, and in no distress. Respirations unlabored . Skin dry on examination now. Testicles descended bilaterally without mass or tenderness. Essentially normal epididymi nontender without philip mass at this time. Assessment and Plan: Gus was seen today for follow-up. Diagnoses and all orders for this visit: Urologic disorders Gross hematuria Benign prostatic hyperplasia with weak urinary stream Epididymal mass - Ultrasound scrotum for TORSION with duplex; Future Problem List Unprioritized Urologic disorders - Primary Overview 1. Serratia marcescens UTI 08/31/2024 [facility]; [place] 2. Endovascular repair Abdominal aortic aneurysm 3. Coronary artery disease status post [place], diabetes, chronic kidney disease, atrial fibrillation/flutter, history of pulmonary embolism, peripheral vascular disease, chronic thrombocytopenia with initial gross hematuria also with frequency, urgency, and difficulty voiding and flank pain 08/29/2024 with suspected stone passage and proven Serratia marcescens urinary infection complicated by Plavix and Coumadin use 4. Right epididymal tail 2.4 cm lesion ultrasound 08/31/2024 infectious versus neoplastic 5. Left 6 mm epididymal complex cyst ultrasound 08/31/2024 6. Bilateral simple renal cysts CT 08/31/2024 7. urolithiasis; by history always right-sided multiple stone passages and multiple endoscopic extractions and ESWL procedures ; tiny right renal calcification to my view CT 08/31/2024 8. Possible family history urolithiasis; father status post nephrectomy 9. Benign prostatic hyperplasia with baseline nocturia every 2 hours and decreased urinary stream 10. Flow 09/27/2024 peak and mean 8 and 3 PVR 14 11. Right and possible left renal artery stenosis CT urogram 09/18/2024 with patient referred to established vascular surgeon 09/28/[address] report 09/18/2024 bilateral several calyceal 3 mm diverticuli without stones Gross hematuria Epididymal mass Relevant Orders Ultrasound scrotum for TORSION with duplex Benign prostatic hyperplasia with weak urinary stream Follow-up: Patient returns with no complaint in follow-up of his UTI, benign prostatic hyperplasia, epididymal lesion, and history of stones. Notes he had shortly after I saw him last what he describes as some right renal pain which resolved completely. We reviewed flow test showing quite low flow rate residual thankfully just 14 mL. As noted above, his right epididymal exam is improved dramatically. I provided independent interpretation of films and reports of CT urogram demonstrating small nonobstructing right renal stone, renal cysts noted previously, previously known aortic aneurysm status post repair and by report small bilateral calyceal diverticuli as well as left femoral artery pseudoaneurysm felt likely secondary to catheterization, as well as right and possibly left renal artery stenosis, degenerative orthopedic changes worst at L4-5 with at least mild central canal narrowing, and previously known cholelithiasis and hiatal hernia. I advised the patient to pursue the non urologic CT findings with primary care. CT report provided to the patient. Recheck scrotal ultrasound. By telephone message I referred patient today to his established vascular surgeon, with whom he already has [place] appointment, to evaluate the concerns for renal artery stenosis in addition to the left femoral artery pseudo aneurysm and follow up on aortic aneurysm. I described and advised scheduling a cystoscopy to follow up on UTI and voiding symptoms and discussed risks of bleeding, pain, infection, urinary retention, and alternative of nonintervention. Patient/family's questions were answered. He certainly agrees to get this scheduled. We can review scrotal ultrasound and flow test results in full detail on return. Thank you very much. I appreciate being asked to help with this patient's care.. MOI PINEDA JR, MD This note was created with the assistance of a speech recognition program. While intending to generate a timely document that accurately reflects the content of the visit, no guarantee can be provided that every grammatical or spelling mistake has been or will be identified or corrected. Thank you for your understanding. documented in this encounter [facility] 09-18-2024 Miscellaneous Notes Contact patient and advise him he has vascular abnormalities on CT as noted below. Make sure he gets prompt follow-up arranged with vascular surgery regarding these. Make sure they have copy of report. He also needs follow-up with me as requested previously per my office note to follow up the remainder of the findings. Thank you. That has not been arranged yet. Please get it arranged. * Left femoral artery small pseudoaneurysm, thrombosis, and adjacent soft tissue thickening likely sequelae of catheterization. * Stable aortic aneurysm status post aortoiliac endograft placement. documented in this encounter [facility] 09-18-2024 Telephone encounter Note Contact patient and advise him he has vascular abnormalities on CT as noted below. Make sure he gets prompt follow-up arranged with vascular surgery regarding these. Make sure they have copy of report. He also needs follow-up with me as requested previously per my office note to follow up the remainder of the findings. Thank you. That has not been arranged yet. Please get it arranged. * Left femoral artery small pseudoaneurysm, thrombosis, and adjacent soft tissue thickening likely sequelae of catheterization. * Stable aortic aneurysm status post aortoiliac endograft placement. [facility] 09-14-2024 Miscellaneous Notes Pt was given orders for Uroflowmetry & Ct urogram - wanted to set them up then set up follow up appt. documented in this encounter [facility] 09-14-2024 Telephone encounter Note Pt was given orders for Uroflowmetry & Ct urogram - wanted to set them up then set up follow up appt. [facility] 09-14-2024 History of Present illness Narrative Images from the original note were not included. [address] [place] [address] [address] [facility] [id number] Patient: Gus Del Cid Date of : 1945 Encounter Date: 09/14/2024 History of Present Illness: Chief Complaint: Scrotal abnormality and gross hematuria with UTI. The patient is a 78 y.o. male, a new patient, and is here for chief complaints scrotal abnormality with gross hematuria and UTI. Presented with his . Developed clearly initial gross hematuria and some right-sided back pain and right scrotal discomfort as well as frequency, urgency, difficulty voiding and was evaluated through the emergency department and treated as below. Relates he completed a 10 day course of Levaquin, with all his symptoms largely resolved. Had scrotal swelling which is gotten down essentially to normal. Had very abnormal scrotal ultrasound as noted below. Relates his father had nephrectomy possibly secondary to stones, but he is not sure. This patient also has had stone passage and interventions for stones remotely as noted below. Now he is voiding okay. No recurrence of gross hematuria. Baseline nocturia every 2 hours and decreased urinary stream without incontinence.. Urinalysis today: No results for input(s): EXTPOCURCO , EXTPOCURCH , EXTPOCAPP , EXTPOCURBS , EXTPOCURBIL , EXTPOCUKET , EXTPOCUSPG , EXTPOCUHGB , EXTPOCUPRO , EXTPOCUURO , EXTPOCULEU , EXTPOCUNIT , EXTPOCUWBC , EXTPOCUBLD , EXTPOCURBC , EXTPOCUCRY , EXTPOCUBAC , EXTPOCUTREP , EXTPOCUPH , EXTPOCULEE in the last 72 hours. Last BUN and creatinine: Lab Results Component Value Date BUN 16 08/31/2024 Lab Results Component Value Date CREATININE 1.03 08/31/2024 Last PSA: No results found for: PSA No results found for: PROSTATICSP Past Medical, Family, and Social History Update: The following portions of the patient's history were reviewed and updated as appropriate: allergies, current medications, past family history, past medical history, past social history, past surgical history and problem list. Past Medical History: Diagnosis Date AAA (abdominal aortic aneurysm) ([facility]) 05/2024 Anemia Arthritis Atrial fibrillation ([facility]) Atrial flutter ([facility]) Bilateral lower extremity edema no longer on diuretic CAD (coronary artery disease) stents and cabg Carotid bruit CHF (congestive heart failure) ([facility]) Cholelithiasis Possible by CT 08/31/2024 CKD (chronic kidney disease), stage II Claudication ([facility]) Congenital heart disease pt denies Deep vein thrombosis ([facility]) 1990s left Diabetes mellitus type 2, controlled ([facility]) Diverticulosis SAM (dyspnea on exertion) Gait instability GERD (gastroesophageal reflux disease) GI bleed 04/2024 Heart disease Hiatal hernia HL (hearing loss) nicko does not wear aides Hypertension Myocardial infarction ([facility]) 2019 Orthostatic dizziness Pacemaker PAF (paroxysmal atrial fibrillation) ([facility]) Psoriasis Pulmonary embolism ([facility]) years ago PVD (peripheral vascular disease) ([facility]) Skin cancer basal cell nose ,squamous cell right arm ear Thrombocytopenia ([facility]) Uses walker Varicose veins of both lower extremities Wears dentures upper and lower Yeast infection 04/2024 Past Surgical History: Procedure Laterality Date CARDIAC CATHETERIZATION 5 stents CARDIAC PACEMAKER PLACEMENT Left Lateral 07/07/2023 01/04/23 COLONOSCOPY N/A 09/08/2018 Performed by Ty Vasquez MD at [facility] CORONARY ANGIOPLASTY WITH STENT PLACEMENT 11/12/2020 10/17/2020 5 stents total CORONARY ARTERY BYPASS GRAFT 06/2020 ENDOGRAFT BYPASS ABDOMINAL AORTA Bilateral 05/31/2024 Performed by Ginny Echols MD at [facility] PROC FEMORAL BYPASS Left 2004 GROIN EXPLORATION WITH REPAIR OF BYPASS GRAFT WITH PATCH ANGIOPLASTY Left 05/31/2024 Performed by Ginny Echols MD at [facility] VASCULAR SURGERY Left 2010 leg Family History Problem Relation Age of Onset Heart disease Mother Heart disease Father Anesthesia problems Neg Hx Current Outpatient Medications Medication Sig Dispense Refill amLODIPine (NORVASC) 5 mg tablet Take 1 tablet (5 mg total) by mouth in the morning. Indications: high blood pressure. clopidogreL (PLAVIX) 75 mg tablet Take 1 tablet (75 mg total) by mouth in the morning. Indications: myocardial reinfarction prevention. dapagliflozin propanediol (FARXIGA) 10 mg tablet Take 1 tablet (10 mg total) by mouth in the morning. Indications: chronic heart failure, type 2 diabetes mellitus. Patient yeast inf. Cleared up. eplerenone (INSPRA) 25 mg tablet Take 1 tablet (25 mg total) by mouth in the morning. Indications: heart failure after a heart attack. metoprolol succinate XL (TOPROL XL) 100 mg 24 hr tablet Take 1.5 tablets (150 mg total) by mouth in the morning and at bedtime. heart omeprazole (PriLOSEC) 40 mg capsule Take 1 capsule (40 mg total) by mouth in the morning. Indications: gastroesophageal reflux disease. rosuvastatin (CRESTOR) 5 mg tablet Take 1 tablet (5 mg total) by mouth once daily at bedtime Indications: excessive fat in the blood. sacubitriL-valsartan (ENTRESTO) 97-103 mg tablet Take 1 tablet by mouth in the morning and 1 tablet before bedtime. Indications: chronic heart failure. warfarin (COUMADIN) 3 mg tablet Take 1 tablet (3 mg total) by mouth every morning. No current facility-administered medications for this visit. (All medications reviewed and updated by provider since last office visit or hospitalization) Allergies: Morphine, Atorvastatin, and Simvastatin Tobacco History: Social History Tobacco Use Smoking Status Former Average packs/day: 1 pack/day for 29.0 years (29.0 ttl pk-yrs) Types: Cigarettes Start date: 1965 Passive exposure: Past Smokeless Tobacco Never (If patient a smoker, smoking cessation counseling offered) Social History: Social History Substance and Sexual Activity Alcohol Use No Review of Systems: Constitutional: Normal activity and energy. Patient denies change in appetite, weight loss or gain, malaise (depression), chills, fever, or diaphoresis (sweating). Eyes: Patient denies vision changes or diplopia (double vision). Ears, Nose, Nose and Throat: Hearing Loss Respiratory: Patient denies dyspnea (shortness of breath), cough, hemotypsis (blood in sputum), and wheezing. Cardiovascular: Patient denies chest pain, palpitations, and shortness of breath. Gastrointestinal: Patient denies abdominal pain, nausea, vomiting, bloating, diarrhea (chronic), constipation (chronic), melena (black stool), hematochezia (blood in stool). Musculoskeletal: Swelling and Backache Neurologic: Dizziness Integument: Patient denies rashes and non-healing lesions. Psychiatric: Patient denies increased nervousness, mood changes, or depression. Endocrine: Diabetes and Excessive urination Blood Disorders: Easy Bruising and Easy bleeding Physical Exam: BP 137/80 Pulse 60 Ht 180.3 cm (5' 11 ) Wt 88 kg (194 lb) BMI 27.06 kg/m Alert, pleasant, without signs of acute illness, and in no distress. Respirations unlabored . Skin dry on examination now. No flank or abdominal mass or tenderness. Redundant foreskin with penis without mass lesion or discharge. Testicles descended bilaterally without mass or tenderness. Fullness right epididymal tail nontender. No scrotal erythema or edema. Prostate 50 g nontender nonnodular. Slow but deliberate gait. Glasses Assessment and Plan: Gus was seen today for urinary tract infection and blood in urine. Diagnoses and all orders for this visit: Urologic disorders Urinary tract infection with hematuria, site unspecified - [facility] [place], [place] Gross hematuria - CT urogram; Future Benign prostatic hyperplasia with weak urinary stream - Uroflowmetry; Future Problem List Unprioritized Urologic disorders - Primary Overview 1. Serratia marcescens UTI 08/31/2024 treated with 10 days Levaquin emergency department; [place] 2. Endovascular repair Abdominal aortic aneurysm 3. Coronary artery disease status post [place], diabetes, chronic kidney disease, atrial fibrillation/flutter, history of pulmonary embolism, peripheral vascular disease, chronic thrombocytopenia with initial gross hematuria also with frequency, urgency, and difficulty voiding and flank pain 08/29/2024 with suspected stone passage and proven Serratia marcescens urinary infection complicated by Plavix and Coumadin use 4. Right epididymal tail 2.4 cm lesion ultrasound 08/31/2024 infectious versus neoplastic 5. Left 6 mm epididymal complex cyst ultrasound 08/31/2024 6. Bilateral simple renal cysts CT 08/31/2024 7. urolithiasis; by history always right-sided multiple stone passages and multiple endoscopic extractions and ESWL procedures ; tiny right renal calcification to my view CT 08/31/2024 8. Possible family history urolithiasis; father status post nephrectomy 9. Benign prostatic hyperplasia with baseline nocturia every 2 hours and decreased urinary stream Gross hematuria Relevant Orders CT urogram Benign prostatic hyperplasia with weak urinary stream Relevant Orders Uroflowmetry Follow-up: I reviewed the followin. Emergency department provider note 10 24 voiding symptoms, flank pain and orchalgia and possible passed stone 2. Same date creatinine 1.03 glucose 123 3. Same date elevated coagulation studies 4. Same date unremarkable CBC besides platelets [id number] 5. Urine dip same date trace blood, leukocytes, and protein I provided independent interpretation of films and reports of abdominal pelvic CT demonstrating to my view tiny right renal calcification as well as previously known stable bilateral simple renal cysts from a urologic standpoint. Possible gallstones also by report and graft repair aortic aneurysm and colonic diverticulosis. Also degenerative spine changes and small hiatal hernia. I advised the patient to pursue the non urologic CT findings with primary care. CT report provided to the patient.. I provided independent interpretation of films and reports of same date scrotal ultrasound demonstrating I agree normal testicles, nonspecific extratesticular likely epididymal tail 2.4 cm hyperemic lesion possible epididymitis, adenomatoid tumor or other process right side as well as complex left epididymal cyst.. Renal cysts were described, and it was reviewed that simple renal cysts are benign but may become more numerous and enlarge with age. Benign nature epididymal cysts was reviewed. The left epididymal miss cyst certainly needs no follow-up. We reviewed today than any abnormality of the urinary tract including cancer, medical renal disease, infection, calculi, bleeding the diathesis, idiopathic, benign familial, BPH, or congenital anomaly could account for hematuria, and hence the importance of evaluation. I advised further evaluation, including imaging and ultimately cystoscopy. Advised he will benefit eventually from metabolic stone evaluation. Return [address] urogram and uroflow, postvoid residual. Repeat scrotal exam on return. Thank you very much. I appreciate being asked to help with this patient's care. MOI PINEDA JR, MD This note was created with the assistance of a speech recognition program. While intending to generate a timely document that accurately reflects the content of the visit, no guarantee can be provided that every grammatical or spelling mistake has been or will be identified or corrected. Thank you for your understanding. [facility] History of Present illness Narrative Images from the original note were not included. Subjective Patient ID: Gus Del Cid is a 78 y.o. male who presents for Diabetes and Hypertension. Diabetes Mellitus Patient presents for follow up of diabetes. Current symptoms include: none. Patient denies foot ulcerations, increased appetite, nausea, polyuria, visual disturbances, and vomiting. Evaluation to date has included: fasting blood sugar, fasting lipid panel, and hemoglobin A1C. Home sugars: patient does not check sugars. Hypertension Patient is here for follow-up of elevated blood pressure. Blood pressure is well controlled at home. Cardiac symptoms: none. Patient denies chest pain, claudication, irregular heart beat, near-syncope, orthopnea, palpitations, and paroxysmal nocturnal dyspnea. Cardiovascular risk factors: advanced age (older than 55 for men, 65 for women), diabetes mellitus, hypertension, male gender, and sedentary lifestyle. Diabetes Pertinent negatives for diabetes include no chest pain and no fatigue. Hypertension Pertinent negatives include no chest pain, palpitations or shortness of breath. Current Outpatient Medications on File Prior to Visit Medication Sig Dispense Refill acetaminophen (Tylenol) 500 MG tablet Take 500 mg by mouth every 6 (six) hours if needed. clobetasol (Temovate) 0.05 % cream Apply to affected areas, up to twice a day when flared, do not use one the face, groin, or underarms, 30 day supply 60 g 11 clobetasol (Temovate) 0.05 % external solution Apply to scalp Apply to affected areas, up to twice a day when flared, do not use one the face, groin, or underarms, 30 day supply 50 mL 11 clopidogrel (Plavix) 75 MG tablet Take 75 mg by mouth in the morning. dapagliflozin (Farxiga) 10 MG Take 10 mg by mouth Daily eplerenone (Inspra) 25 MG tablet Take 25 mg by mouth in the morning. metoprolol succinate XL (Toprol-XL) 100 MG 24 hr tablet Take 1.5 tablets by mouth in the morning and 1.5 tablets in the evening. Multiple Vitamin (multivitamin) capsule Take 1 capsule by mouth in the morning. omeprazole (PriLOSEC) [address] capsule Take 40 mg by mouth in the morning. rosuvastatin (Crestor) 5 MG tablet Take 5 mg by mouth in the morning. sacubitril-valsartan (Entresto) 97-103 MG tablet Take 1 tablet by mouth in the morning and 1 tablet before bedtime. warfarin (Coumadin) 3 MG tablet Take 3 mg by mouth. 1 tablet , Wed. 1/2 tab other 5 days amLODIPine (Norvasc) 5 MG tablet Take 5 mg by mouth in the morning. [DISCONTINUED] potassium chloride CR (K-Tab) 20 MEQ ER tablet Take 20 mEq by mouth in the morning. [DISCONTINUED] spironolactone (Aldactone) 25 MG tablet Take 25 mg by mouth 1 (one) time each day at the same time. No current facility-administered medications on file prior to visit. Allergies Allergen Reactions Morphine Unknown Dextroamphetamine Unknown Other Reaction(s): Unknown Simvastatin Other Atorvastatin Other and Unknown Other Reaction(s): Pain Social History Tobacco Use Smoking status: Former Current packs/day: 0.00 Types: Cigarettes Quit date: 1996 Years since quittin.6 Smokeless tobacco: Never Vaping Use Vaping status: Never Used Substance Use Topics Alcohol use: Defer Drug use: Not Currently Family History Problem Relation Name Age of Onset Cancer Brother Past Medical History: Diagnosis Date Actinic keratosis Basal cell carcinoma Chest pain 12/06/2012 Conduction disorder of the heart 09/07/2012 COVID-19 07/2021 Diaphragmatic hernia without obstruction or gangrene 05/08/2023 Dyspnea 07/23/2020 Edema of lower extremity 12/14/2019 Hypercholesteremia (CMS/HCC) 05/08/2023 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 Squamous cell skin cancer Past Surgical History: Procedure Laterality Date CT ANGIOGRAM ABDOMEN PELVIS 06/28/2024 CT ANGIOGRAM ABDOMEN PELVIS 06/28/2024 CT ANGIOGRAM HEART CORONARY 10/14/2020 CT ANGIOGRAM TAVR 10/14/2020 CT AORTA AND BILATERAL ILIOFEMORAL RUNOFF ANGIOGRAM W AND/OR WO IV CONTRAST 05/05/2024 CT AORTA AND BILATERAL ILIOFEMORAL RUNOFF ANGIOGRAM W AND/OR WO IV CONTRAST 05/05/2024 INSERT / REPLACE / REMOVE PACEMAKER INSERT / REPLACE / REMOVE PACEMAKER 07/07/2023 OTHER SURGICAL HISTORY femoral popliteal bypass OTHER SURGICAL HISTORY 07/04/2020 open heart surgery OTHER SURGICAL HISTORY 07/11/2015 MOHS repair OTHER SURGICAL HISTORY 05/13/2023 Attempted CHECK VIEWER-D Upgrade, Venogram SKIN CANCER EXCISION Visit Vitals BP 132/72 Pulse 67 Ht 5' 11 Wt 184 lb SpO2 97% BMI 25.66 kg/m Smoking Status Former BSA 2.04 m Review of Systems Constitutional: Negative for appetite change, fatigue and unexpected weight change. Respiratory: Negative for cough, chest tightness and shortness of breath. Cardiovascular: Negative for chest pain, palpitations and leg swelling. Gastrointestinal: Negative for abdominal distention, abdominal pain, anal bleeding, blood in stool, nausea and vomiting. Genitourinary: Negative for difficulty urinating, hematuria and urgency. Objective Physical Exam Constitutional: General: He is not in acute distress. Appearance: He is normal weight. He is not ill-appearing. HENT: Head: Normocephalic. Cardiovascular: Rate and Rhythm: Normal rate. Rhythm irregular. Heart sounds: Murmur heard. Pulmonary: Effort: Pulmonary effort is normal. Breath sounds: Normal breath sounds. Musculoskeletal: General: No swelling. Right lower leg: No edema. Left lower leg: No edema. Neurological: Mental Status: He is alert. Psychiatric: Mood and Affect: Mood normal. Thought Content: Thought content normal. Judgment: Judgment normal. Office Visit on 02/16/2024 Component Date Value Ref Range Status Hemoglobin A1C 02/16/2024 6.5 Final Assessment/Plan Diagnoses and all orders for this visit: Type 2 diabetes mellitus with stage 2 chronic kidney disease, without long-term current use of insulin (CMS/HCC) - FSBS log shows good control, most recent A1C is at or near goal. Continue current treatment plan as previously outlined without changes. Coronary artery disease involving kaw coronary artery of kaw heart without angina pectoris (CMS/HCC) - Patient was counseled that this condition is chronic and can be controlled, but not cured. Chronic combined systolic and diastolic heart failure (CMS/HCC) - No current active congestive heart failure. Dyspnea at exertion, but not at rest. No evidence of pulmonary edema. Medications unchanged. Thrombocytopenia, unspecified (CMS/HCC) Emphysema, unspecified (CMS/HCC) Ruptured infrarenal abdominal aortic aneurysm (AAA) (CMS/HCC) Status post percutaneous abdominal aortic aneurysm (AAA) repair Follow up in about 6 months (around 01/06/2025) for Routine F/U. documented in this encounter [facility] 05-11-2024 Note I have reviewed the perioperative treatment plan and concur with the treatment outlined in the note. Josey Delvalle, PharmD, BCACP [facility] 05-11-2024 Note Procedure Type: AAA Repair Procedure Date: 05/31/24 Required Hold Duration: 5 days Date Day of the Week Warfarin Dose (# tablet) 3 mg tablet Warfarin Dose (# mg) -05/26/24Wednesday 0 Tabs 0 mg -05/27/24Wednesday 0 Tabs 0 mg -05/28/24Wednesday 0 Tabs 0 mg -05/29/24Wednesday 0 Tabs 0 mg -05/30/24Wednesday 0 Tabs 0 mg Procedure Day 05/31/24Wednesday 2 Tabs 6 mg 06/01/24 2 Tabs 6 mg 06/02/24Wednesday 1 Tabs 3 mg 06/03/24Wednesday 1 Tabs 3 mg 06/04/24Wednesday 1 Tabs 3 mg 06/05/24Wednesday INR Due - Check w/ Home Monitor Follow above instructions exactly, unless your surgeon or procedure doctor states otherwise. If so, follow your surgeon's instructions or procedure doctor's instructions. [facility] 05-11-2024 Note [facility] Subjective Gus Del Cid is a 78 y.o. year old male patient being seen for surgery clearance for Dr. Echols. His device was interrogated in January 2024. He was admitted earlier this month to [facility] for GI bleed. Then he thinks he got yeast infection from [facility]. He is still taking this and warfarin. Stopped taking spironolactone awhile ago due to gynecomastia. Patient Active Problem List Diagnosis Persistent atrial fibrillation (CMS/HCC) Abdominal aortic aneurysm (CMS/HCC) Cardiac pacemaker in situ Chest pain Chronic systolic heart failure (CMS/HCC) Conduction disorder of the heart Coronary arteriosclerosis Dyspnea Edema of lower extremity Essential hypertension Hypertensive disorder Peripheral vascular disease (CMS/HCC) Chronic atrial fibrillation (CMS/HCC) Paroxysmal atrial fibrillation (CMS/HCC) Cardiomyopathy, ischemic Acute respiratory distress syndrome (ARDS) (CMS/HCC) Diabetes mellitus (CMS/HCC) Disorder of vein Edema Esophageal dysphagia Gastro-esophageal reflux disease without esophagitis GI bleed Rhinorrhea Squamous cell carcinoma of left ear No family history on file. Social History Tobacco Use Smoking status: Never Smokeless tobacco: Never Substance Use Topics Alcohol use: Never HPI Mr. Del Cid is seen in follow-up. He also needs to undergo abdominal aortic surgery and needs preoperative evaluation for that. He is a 78-year-old man with prior history of CAD s/p CABG, HFrEF - EF 25% 09/2020, a.fib s/p OSVALDO atriclip, dual chamber PM, AAA, HTN, PVD s/p femoraopoplietal bypass, moderate pHTN, iliac aorta aneurysm s/p left fem-pop maintained on coumadin (follows with Dr. Alcocer). Late 2019, he was admitted to [facility] for unstable angina. He was found to have occluded grafts. CT surgery recommended PCI. He underwent stenting of the LADx2 and LCX on 10/17/20. He then underwent a staged PCI of RCA on 11/12/20 where he had 2 MELYSSA placed. Echocardiogram in January 2021 showed EF remains reduced at 28%, proBNP was also elevated. We switched him from lisinopril to Entresto 24/26mg BID. On future visits his heart failure therapy was optimized. His cardiac MRI in March 2023 showed an ejection fraction of 34%. There was inability to successfully upgrade to CHECK VIEWER-D in April [address] Ezequiel Gilliland due to brachiocephalic vein stenosis and scarring. He was referred to [facility]. He was then recommended to undergo a stress test which showed very small amount of ischemia and ejection fraction within normal range. He was told at the [facility] that the risks of attempted upgrade are not justified. His stress test showed evidence of ischemia less than 10% involving the circumflex territory and after discussing that with him we decided to continue medical therapy and avoid intervention which would have low yield of benefit. He then underwent pacemaker generator change on 07/07/[address] Ezequiel Gilliland. He does not have chest pain. He has no shortness of breath on exertion, NYHA class I. He has mild occasional bilateral lower extremity edema. He recently was admitted with GI bleeding to [facility]. He has developed gynecomastia to Spironolactone and he stopped taking it. He also developed genital yeast infection. Review of Systems Constitutional: Positive for malaise/fatigue. Cardiovascular: Positive for leg swelling (minimal). Hematologic/Lymphatic: Bruises/bleeds easily. Neurological: Positive for light-headedness. All other systems reviewed and are negative. Objective Visit Vitals BP 132/72 (BP Location: Left arm, Patient Position: Sitting) Pulse 56 Ht 1.829 m (6') Wt 88.5 kg (195 lb) SpO2 97% BMI 26.45 kg/m??? Smoking Status Never BSA 2.12 m??? Physical Exam Constitutional: Appearance: He is well-developed. He is not ill-appearing. HENT: Head: Normocephalic and atraumatic. Nose: Nose normal. Eyes: General: No scleral icterus. Pupils: Pupils are equal, round, and reactive to light. Neck: Thyroid: No thyromegaly. Vascular: No JVD. Cardiovascular: Rate and Rhythm: Normal rate and regular rhythm. Pulses: Radial pulses are 2+ on the right side and 2+ on the left side. Heart sounds: Normal heart sounds. No murmur heard. No friction rub. No gallop. Pulmonary: Effort: Pulmonary effort is normal. No respiratory distress. Breath sounds: Normal breath sounds. No wheezing or rales. Chest: Chest wall: No tenderness. Abdominal: General: Bowel sounds are normal. There is no distension. Palpations: Abdomen is soft. Tenderness: There is no abdominal tenderness. Musculoskeletal: General: No swelling. Cervical back: Neck supple. Right lower leg: No edema. Left lower leg: No edema. Skin: General: Skin is warm and dry. Neurological: General: No focal deficit present. Mental Status: He is alert and oriented to person, place, and time. Psychiatric: Moo (more content not included)... [facility] 04-20-2024 Note LVM for INR assessment [facility] 04-03-2024 Note Manage by exclusion [place] [facility] 02-29-2024 Note LVM to assess INR [facility] 02-29-2024 Note No answer on either home or mobile number. [facility] 02-11-2024 Note Annual face to face encounter - warfarin Reviewed anticoagulation education Yes Patient was educated on warfarin including: -Indication: Afib and PVD -Duration of therapy: indefinite -Goal INR: 2-3 Discussed Dietary impact to INR was addressed including vitamin K and alcohol. Over the counter options for pain relief/fever were discussed with preference given to acetaminophen, and avoidance of NSAIDs. Patient was educated on signs of adverse events such as bleeding and bruising (blood in nose, gums, urine, dark tarry stool), and thrombosis or stroke (FAST acronym). Specifically, patient was educated to seek medical attention of any trauma was inflicted to the head to rule out bleed. Patient was educated to contact clinic on the same day for the following reasons: any medication changes, surgery is scheduled, medication refill request, any other facility gives warfarin instructions which contradict the anticoagulation clinic. Adherence was discussed. Warfarin is recommended to be taken in the evening. In case of a missed dose, patient may take up to 12 hours late, but should never double dose or make any changes to regimen without talking to the anticoagulation clinic. All of patient's providers should be aware of anticoagulation status. Teratogenicity not discussed as not of childbearing age [place] Suicide Risk Screening was performed Yes Patient was provided written education material and verbalized understanding. Yes Medication reconciliation complete and allergies reviewed Yes Verified patient has active prescription Yes Verified patient has active lab order / Home monitor order Yes Verified patient has appropriate follow up with referring provider Yes Doesn't think he is allergic to dextroamphetamine Stopped Jardiance [facility] 01-13-2024 Note Annual review of ant icoagulation therapy completed today. Patient is taking warfarin for atrial fibrillation and PVD. Duration of anticoagulation is anticipated to be indefinite. INR Goal (if applicable): 2-3 Referring provider: Dr. Montero - Visit with provider in last 12 months? Yes Date: 12/17/23 Screenings (if applicable to indication): Wt Readings from Last 1 Encounters: 12/17/23 90.7 kg (200 lb) Lab Results Component Value Date WBC 5.2 07/06/2023 HGB 14.1 07/06/2023 HCT 43.8 07/06/2023 MCV 96.3 05/13/2023 PLT 144 (A) 07/06/2023 Lab Results Component Value Date GLUCOSE 119 07/06/2023 CALCIUM 10.7 (H) 05/13/2023 NA 136 07/06/2023 K 4.5 07/06/2023 CO2 27.1 07/06/2023 CL 102 07/06/2023 BUN 23.0 07/06/2023 CREATININE 1.14 05/13/2023 CHADS-VASc Score 5 due to CHF HTN vascular disease ages 75 and older HASBLED Score 2 due to ages 65 and older drug/alcohol use (Plavix) Factor II activity : Not applicable Phone or F2F Management? Phone Management - Home Monitor -If phone management - Patient due for annual ozbl-yt-clod visit? Yes Next appointment or lab work scheduled? No [facility] 12-17-2023 Note [facility] Subjective Gus Del Cid is a 78 y.o. year old male patient being seen for 6 mo follow up chronic systolic heart failure, CAD, PAF, and ischemic cardiomyopathy. Had echo 3 days ago. He is paying a lot of money for Jardiance. Denies chest pain, palpitations, and bleeding on warfarin. Patient Active Problem List Diagnosis Persistent atrial fibrillation (CMS/HCC) Abdominal aortic aneurysm (CMS/HCC) Cardiac pacemaker in situ Chest pain Chronic systolic heart failure (CMS/HCC) Conduction disorder of the heart Coronary arteriosclerosis Dyspnea Edema of lower extremity Essential hypertension Hypertensive disorder Peripheral vascular disease (CMS/HCC) Chronic atrial fibrillation (CMS/HCC) Paroxysmal atrial fibrillation (CMS/HCC) Cardiomyopathy, ischemic No family history on file. Social History Tobacco Use Smoking status: Never Smokeless tobacco: Never Substance Use Topics Alcohol use: Never HPI Mr. Del Cid is seen in follow-up. He is a 78-year-old man with prior history of CAD s/p CABG, HFrEF - EF 25% 09/2020, a.fib s/p OSVALDO atriclip, dual chamber PM, AAA, HTN, PVD s/p femoraopoplietal bypass, moderate pHTN, iliac aorta aneurysm s/p left fem-pop maintained on coumadin (follows with Dr. Alcocer). Late 2019, he was admitted to [facility] for unstable angina. He was found to have occluded grafts. CT surgery recommended PCI. He underwent stenting of the LADx2 and LCX on 10/17/20. He then underwent a staged PCI of RCA on 11/12/20 where he had 2 MELYSSA placed. Echocardiogram in January 2021 showed EF remains reduced at 28%, proBNP was also elevated. We switched him from lisinopril to Entresto 24/26mg BID. On future visits his heart failure therapy was optimized. His cardiac MRI in March 2023 showed an ejection fraction of 34%. There was inability to successfully upgrade to CHECK VIEWER-D in April [address] Ezequiel Gilliland due to brachiocephalic vein stenosis and scarring. He was referred to [facility]. He was then recommended to undergo a stress test which showed very small amount of ischemia and ejection fraction within normal range. He was told at the [facility] that the risks of attempted upgrade are not justified. His stress test showed evidence of ischemia less than 10% involving the circumflex territory and after discussing that with him we decided to continue medical therapy and avoid intervention which would have low yield of benefit. He then underwent pacemaker generator change on 07/07/[address] Ezequiel Gilliland. He does not have chest pain. He has no shortness of breath on exertion, NYHA class I. He has mild occasional bilateral lower extremity edema. He is taking medications as prescribed. Review of Systems Constitutional: Positive for malaise/fatigue. Cardiovascular: Positive for leg swelling (minimal). Negative for chest pain and dyspnea on exertion. All other systems reviewed and are negative. Objective Visit Vitals BP 118/78 (BP Location: Left arm, Patient Position: Sitting) Pulse 55 Ht 1.829 m (6') Wt 90.7 kg (200 lb) SpO2 96% BMI 27.12 kg/m??? Smoking Status Never BSA 2.15 m??? Physical Exam Constitutional: Appearance: He is well-developed. He is not ill-appearing. HENT: Head: Normocephalic and atraumatic. Nose: Nose normal. Eyes: General: No scleral icterus. Pupils: Pupils are equal, round, and reactive to light. Neck: Thyroid: No thyromegaly. Vascular: No JVD. Cardiovascular: Rate and Rhythm: Normal rate and regular rhythm. Pulses: Radial pulses are 2+ on the right side and 2+ on the left side. Heart sounds: Normal heart sounds. No murmur heard. No friction rub. No gallop. Pulmonary: Effort: Pulmonary effort is normal. No respiratory distress. Breath sounds: Normal breath sounds. No wheezing or rales. Chest: Chest wall: No tenderness. Abdominal: General: Bowel sounds are normal. There is no distension. Palpations: Abdomen is soft. Tenderness: There is no abdominal tenderness. Musculoskeletal: General: No swelling. Cervical back: Neck supple. Right lower leg: No edema. Left lower leg: No edema. Skin: General: Skin is warm and dry. Neurological: General: No focal deficit present. Mental Status: He is alert and oriented to person, place, and time. Psychiatric: Mood and Affect: Mood normal. Behavior: Behavior is cooperative. Judgment: Judgment normal. Allergies Allergies Allergen Reactions Atorvastatin Other Dextroamphetamine Unknown Morphine Simvastatin Other Medications Current Outpatient Medications: amLODIPine (Norvasc) 5 mg tablet, TAKE 1 TABLET BY MOUTH IN THE MORNING, Disp: 90 tablet, Rfl: 3 clopidogrel (Plavix) 75 mg tablet, TAKE 1 TABLET BY MOUTH IN THE MORNING, Disp: 90 tablet, Rfl: 3 empagliflozin (Jardiance) 10 mg, Take 1 tablet (10 mg) by mouth in the morning., Disp: 90 tablet, Rfl: 3 furosemide (Lasix) 20 mg tablet, (more content not included)... [facility] 11-25-2023 History of Present illness Narrative CHIEF COMPLAINT: Chief Complaint Patient presents with Follow-up 6 month follow up with testing completed on 11/18/2023 in [place]. HISTORY OF PRESENT ILLNESS: Gus Del Cid is a 78 y.o. male who presents to the office today for evaluation of Abdominal aortic aneurysm and peripheral arterial disease. Patient is doing well. He denies any abdominal pain or out of the usual back pain. Patient reports that he has some mild pain when he walks a lot but otherwise he is very comfortable and he has no other restrictions when he walks. He has no discoloration over his lower extremities. He has no ulcerations. Patient has no other complaints. Denies any strokes or mini strokes. He denies any weakness in any of his extremities. ALLERGIES: Allergies Allergen Reactions Atorvastatin Other (See Comments) Morphine Simvastatin Other (See Comments) MEDICATIONS: Current Outpatient Medications Medication Sig Dispense Refill acetaminophen (TYLENOL) 500 mg tablet Take 1 tablet (500 mg total) by mouth every 6 (six) hours as needed for pain. amiodarone (PACERONE) 200 mg tablet Take 1 tablet (200 mg total) by mouth in the morning. atenolol (TENORMIN) 25 mg tablet Take 1 tablet (25 mg total) by mouth in the morning. 3 atenolol (TENORMIN) 50 mg tablet Take 1 tablet (50 mg total) by mouth in the morning. clopidogreL (PLAVIX) 75 mg tablet Take 1 tablet (75 mg total) by mouth in the morning. digoxin (LANOXIN) 125 mcg tablet Take 1 tablet (125 mcg total) by mouth in the morning. docusate sodium (COLACE) 100 mg capsule Take 1 capsule (100 mg total) by mouth in the morning and 1 capsule (100 mg total) before bedtime. ezetimibe (ZETIA) 10 mg tablet Take 1 tablet (10 mg total) by mouth in the morning. furosemide (LASIX) 20 mg tablet Take 2 tablets (40 mg total) by mouth daily. lisinopriL (PRINIVIL,ZESTRIL) 5 mg tablet Take 1 tablet (5 mg total) by mouth in the morning. metOLazone (ZAROXOLYN) 2.5 mg tablet Take 1 tablet (2.5 mg total) by mouth See Admin Instructions. 1 tab oral tid 30 min before lasix metoprolol succinate XL (TOPROL-XL) 50 mg 24 hr tablet Take 1.5 tablets (75 mg total) by mouth in the morning. multivitamin capsule Take 1 capsule by mouth in the morning. omeprazole (PriLOSEC) 40 mg capsule Take 1 capsule (40 mg total) by mouth in the morning. potassium chloride 20 mEq tablet extended release Take 1 tablet (20 mEq total) by mouth in the morning. rosuvastatin (CRESTOR) 5 mg tablet Take 1 tablet (5 mg total) by mouth in the morning. sacubitriL-valsartan (ENTRESTO) 24-26 mg tablet Take 1 tablet by mouth in the morning and 1 tablet before bedtime. warfarin (COUMADIN) 3 mg tablet No current facility-administered medications for this visit. SOCIAL HISTORY: Social History Tobacco Use Smoking status: Former Types: Cigarettes Smokeless tobacco: Never Substance Use Topics Alcohol use: No REVIEW OF SYSTEMS: Review of Systems Constitutional: Negative for activity change, appetite change, chills, fatigue, fever and unexpected weight change. HENT: Negative for facial swelling and trouble swallowing. Eyes: Negative for visual disturbance. Respiratory: Negative for chest tightness and shortness of breath. Cardiovascular: Positive for leg swelling. Negative for chest pain. Gastrointestinal: Negative for abdominal pain. Genitourinary: Negative for flank pain and frequency. Musculoskeletal: Positive for arthralgias and back pain. Negative for joint swelling. Skin: Negative for color change, pallor, rash and wound. Neurological: Negative for dizziness, syncope, facial asymmetry, speech difficulty, weakness, light-headedness and numbness. Hematological: Negative for adenopathy. PHYSICAL EXAM: Physical Exam Vitals reviewed. Constitutional: General: He is not in acute distress. Neck: Vascular: Carotid bruit present. No JVD. Cardiovascular: Rate and Rhythm: Normal rate. Pulses: Carotid pulses are on the right side with bruit and on the left side with bruit. Radial pulses are 2+ on the right side and 2+ on the left side. Dorsalis pedis pulses are detected w/ doppler on the right side and detected w/ doppler on the left side. Posterior tibial pulses are detected w/ doppler on the right side and detected w/ doppler on the left side. Heart sounds: No murmur heard. Pulmonary: Breath sounds: Normal breath sounds. Abdominal: Palpations: Abdomen is soft. There is no mass. Tenderness: There is no abdominal tenderness. Musculoskeletal: General: No tenderness. Cervical back: Neck supple. Right lower leg: Edema present. Left lower leg: Edema present. Skin: General: Skin is warm. Coloration: Skin is not pale. Findings: No erythema. Neurological: Mental Status: He is alert and oriented to person, place, and time. VASCULAR EXAM: Vascular: Right Lower Extremity Right lower extremity pulses DP: detected w/ doppler Doppler findings: biphasic PT: detected w/ doppler Doppler findings: biphasic Right lower extremity edema: 1+ and pitting Left Lower Extremity Left lower extremity pulses DP: detected w/ doppler Doppler findings: biphasic PT: detected w/ doppler Doppler findings: biphasic Left lower extremity edema: 1+ and pitting Right Upper Extremity Right upper extremity pulses Radial: 2+ Left Upper Extremity Left upper extremity pulses Radial: 2+ Carotid: Positive for right carotid bruit. Positive for left carotid bruit. ASSESSMENT AND PLAN: Gus was seen today for follow-up. Diagnoses and all orders for this visit: PAD (peripheral artery disease) ([facility] - CT angiogram abdomen and pelvis; Future Infrarenal abdominal aortic aneurysm (AAA) without rupture ([facility]) - CT angiogram abdomen and pelvis; Future Claudication ([facility]) - CT angiogram abdomen and pelvis; Future I reviewed his lower extremity arterial Dopplers that he had recently. There has no significant arterial disease on either sides. Also reviewed his aortic duplex which showed that his aneurysm is now around 5 cm in the largest diameter. I will see the patient back in 6 months with a follow-up CT scan. Continue with the Plavix and statins. [facility] HNO ID: [id number] Author: Michell Quintanilla RN Service: Nursing Author Type: Registered Nurse Type: Progress Notes Filed: 06/09/2023 11:04 AM Note Text: RADIOLOGY SERVICE PROGRESS NOTE SERVICE DATE: 06/09/2023 SERVICE TIME: 11:03 AM PATIENT IDENTITY VERIFICATION COMPLETED USING TWO (2) STANDARD IDENTIFIERS: Name and Date of confirmed by patient verbally and Name and Date of confirmed by identification band PATIENT GENDER DATA: male ALLERGIES: Reviewed and unchanged MEDICATIONS REVIEWED BY: Dental Assisting Instructor PROCEDURE TYPE: NM STRESS: 0.4 mg of Lexiscan was administered IV at 1100 by Michell Quintanilla RN . Reversal agent used: None. Expiration date: 10/15/2026 Lot#: [id number] IV SITE: Ambulatory: A Saline lock was inserted per protocol POST EXAM PIV STATUS: Discontinued PATIENT DISCHARGED TO: Ambulatory patient, left NM department area. A Diagnostic radioactive procedure has taken place, with no further precautions necessary other than routine body substance precautions. More information regarding radiation safety can be found using this link: [email or web address] [email or web address] SIGNATURE: Michell Quintanilla RN PATIENT NAME: Gus Del Cid DATE: June 09, 2023 TIME: 11:03 AM PAGER/CONTACT #: [facility] 06-09-2023 Note HNO ID: [id number] Author: Yasmin Velázquez, (R) Service: Nuclear Medicine Author Type: Technologist Type: Progress Notes Filed: 06/09/2023 11:00 AM Note Text: RADIOLOGY SERVICE PROGRESS NOTE SERVICE DATE: 06/09/2023 SERVICE TIME: 9:53 AM PATIENT IDENTITY VERIFICATION COMPLETED USING TWO (2) STANDARD IDENTIFIERS: Name and Date of confirmed by patient verbally FALL SCREENING: Has the patient had 2 falls in the last year or 1 fall with injury or currently using an Ambulatory Assistive Device (Walker, Cane, Wheelchair, Crutches, etc.)? No PATIENT GENDER DATA: .male ALLERGIES: Reviewed and unchanged MEDICATIONS REVIEWED: Yes IV SITE: Ambulatory: A peripheral IV was started in the Left antecubital site with a Angio cath: 20 gauge. POST EXAM PIV STATUS: Discontinued PROCEDURE TYPE: NM Stress: 13.0 mCi [id number] was administered IV for Rest Imaging at 0950 by Ted Salvador RT(R). 30.4 mCi [id number] was administered IV for Stress Imaging at 1100 by RT Simran(R). ADMINISTRATION TIME: PATIENT DISCHARGED TO: Ambulatory patient, left NM department area. A Diagnostic radioactive procedure has taken place, with no further precautions necessary other than routine body substance precautions. More information regarding radiation safety can be found using this link: [email or web address]%20Me [email or web address] SIGNATURE: RT Damien(R) PATIENT NAME: Gus Del Cid DATE: June 09, 2023 TIME: 9:53 AM PAGER/CONTACT #: [facility] 06-09-2023 History of Present illness Narrative RADIOLOGY SERVICE PROGRESS NOTE SERVICE DATE: 06/09/2023 SERVICE TIME: 9:53 AM PATIENT IDENTITY VERIFICATION COMPLETED USING TWO (2) STANDARD IDENTIFIERS: Name and Date of confirmed by patient verbally FALL SCREENING: Has the patient had 2 falls in the last year or 1 fall with injury or currently using an Ambulatory Assistive Device (Walker, Cane, Wheelchair, Crutches, etc.)? No PATIENT GENDER DATA: .male ALLERGIES: Reviewed and unchanged MEDICATIONS REVIEWED: Yes IV SITE: Ambulatory: A peripheral IV was started in the Left antecubital site with a Angio cath: 20 gauge. POST EXAM PIV STATUS: Discontinued PROCEDURE TYPE: NM Stress: 13.0 mCi [id number] was administered IV for Rest Imaging at 0950 by RT Damien(R). 30.4 mCi [id number] was administered IV for Stress Imaging at 1100 by RT Simran(Stew). ADMINISTRATION TIME: PATIENT DISCHARGED TO: Ambulatory patient, left [place] department area. A Diagnostic radioactive procedure has taken place, with no further precautions necessary other than routine body substance precautions. More information regarding radiation safety can be found using this link: [email or web address] [email or web address]%[email or web address] df SIGNATURE: RT Damien(R) PATIENT NAME: Gus Del Cid DATE: June 09, 2023 TIME: 9:53 AM PAGER/CONTACT #: RADIOLOGY SERVICE PROGRESS NOTE SERVICE DATE: 06/09/2023 SERVICE TIME: 11:03 AM PATIENT IDENTITY VERIFICATION COMPLETED USING TWO (2) STANDARD IDENTIFIERS: Name and Date of confirmed by patient verbally and Name and Date of confirmed by identification band PATIENT GENDER DATA: male ALLERGIES: Reviewed and unchanged MEDICATIONS REVIEWED BY: Dental Assisting Instructor PROCEDURE TYPE: NM STRESS: 0.4 mg of Lexiscan was administered IV at 1100 by Michell Quintanilla RN . Reversal agent used: None. Expiration date: 10/15/2026 Lot#: [id number] IV SITE: Ambulatory: A Saline lock was inserted per protocol POST EXAM PIV STATUS: Discontinued PATIENT DISCHARGED TO: Ambulatory patient, left [place] department area. A Diagnostic radioactive procedure has taken place, with no further precautions necessary other than routine body substance precautions. More information regarding radiation safety can be found using this link: [email or web address] [email or web address]%[email or web address] df SIGNATURE: Michell Quintanilla RN PATIENT NAME: Gus Del Cid DATE: June 09, 2023 TIME: 11:03 AM PAGER/CONTACT #: documented in this encounter [facility] 06-02-2023 Miscellaneous Notes Documentation scanned into EP outside database documented in this encounter [facility] 05-27-2023 Miscellaneous Notes Spoke with outside clinics that have recently interrogated patient's pacemaker ([facility] and [place]). Most recent interrogation at [facility] was on 04/06/23 and shows a battery estimate of <3 months (not yet triggered LEOBARDO). The underlying rhythm was Sinus Bradycardia (with intact conduction) and RV pacing percentage 9.4%. Attempting to obtain a copy of this report from [facility]. documented in this encounter [facility] 05-26-2023 Miscellaneous Notes Attempted to contact the patient. Spoke to the patient's . The patient will call back. Cristian RN ----- Message from Filippo Zarate MD sent at 05/26/2023 4:34 PM EDT ----- Regarding: Lab results and CxR Please call patient with results. BNP slightly elevated CxR as reported. He is awaiting echo and stress test on 06/09 and will make final recommendations after that. I would like to see his EKGs and his pacemaker check records from before to see 1. How was the device programmed 2. How much was he pacing in the RV Thanks Filippo Zarate MD May 26, 2023 4:36 PM documented in this encounter [facility] 05-24-2023 Note HNO ID: [id number] Author: Sariah Galindo fundfindr Service: ? Author Type: ? Type: Progress Notes Filed: 05/24/2023 4:30 PM Note Text: HOLTER MONITOR APPLICATION [facility] [id number] Chest is cleansed with alcohol Skin prep applied Electrodes place on chest and stress loops secured with tape Fresh battery inserted in monitor Holter monitor secured to patient with waist or shoulder straps Patient instructed 1.) Diary documentation 2.) Usage of event button 3.) Maintenance and care of monitor 4.) Safety issues with monitor 5.) Return unit in 24 hours or 48 hours 6.) Call with problems [phone] OR [phone] Patient expresses good verbal understanding of instructions Sariah Galindo [facility] 05-24-2023 Note HNO ID: [id number] Author: Jael Kumari, RT(R) Service: Radiology Author Type: Technologist Type: Progress Notes Filed: 05/24/2023 2:33 PM Note Text: Radiology Service Progress Note PATIENT NAME: Gus Del Cid DATE OF SERVICE: May 24, 2023 TIME: 2:32 PM PATIENT IDENTITY VERIFICATION COMPLETED USING TWO (2) IDENTIFIERS: Name and Date of confirmed by patient verbally. FALL SCREENING: Has the patient had 2 falls in the last year or 1 fall with injury or currently using an Ambulatory Assistive Device (Walker, Cane, Wheelchair, Crutches, etc.)? No PATIENT GENDER DATA: Male PATIENT RELEVANT IMPLANT DATA REVIEWED: Not Applicable RADIOLOGY DEPARTMENT: General X-ray: Exam(s) Completed: Chest X-Ray PERIPHERAL IV DATA: Not applicable SIGNED BY: RT Richi(R) May 24, 2023 2:32 PM [facility] 05-24-2023 Note Education (CARDMN) GUS DEL CID ([id number]) 1945 M Date Time Provider Department 05/24/23 1:30 PM ARRHYTHMIA MONITORING LAB CARDMN Reason for Visit: Holter Monitor Application [261] Cmt: 48 HR Visit Diagnoses:Biventricular congestive heart failure (HCC) [I50.82] Atrial fibrillation with rapid ventricular response (HCC) [I48.91] Type 2 diabetes mellitus without complication, without long-term current use of insulin (HCC) [E11.9] Order(s):HOLTER MONITOR 48 HOUR [[id number]] Order #: [id number] During your visit today, we recorded the following information about you: Allergies As of Date: 05/24/2023 Noted Allergy Reaction MORPHINE 07/05/2020 16 - Unknown DEXTROAMPHETAMINE 09/25/2009 16 - Unknown ATORVASTATIN 11/02/2014 14 - Other: See Comments 16 - Unknown Comments: Other Reaction(s): Pain Date Reviewed: 05/24/2023 Reviewed by: Stefanie Mar RN - Fully Assessed Prescriptions as of 05/24/2023 - amLODIPine (NORVASC) 5 mg tablet Take 5 mg by mouth every morning. - clopidogrel (PLAVIX) 75 mg tablet Take 75 mg by mouth every morning. - JARDIANCE 10 mg tablet - metoprolol succinate ER (TOPROL XL) 100 mg Take 100 mg by mouth twice daily. - omeprazole (PRILOSEC) 40 mg capsule Take 1 capsule by mouth once daily. - rosuvastatin (CRESTOR) 5 mg tablet Take 5 mg by mouth daily at bedtime. - sacubitril-valsartan (ENTRESTO) 97-103 mg tablet Take 1 tablet twice a day by oral route for 90 days. - spironolactone (ALDACTONE) 25 mg tablet Take 25 mg by mouth every morning. - warfarin (COUMADIN) 3 mg tablet TAKE 1 TO 1 AND 1/2 (ONE TO ONE AND ONE-HALF) TABLETS BY MOUTH ONCE DAILY DIRECTED - doxycycline monohydrate (MONODOX) 100 mg capsule TAKE 1 CAPSULE BY MOUTH TWICE DAILY FOR 14 DAYS (MORNING AND BEDTIME). TAKE WITH AT LEAST 8OZ OF WATER. DO NOT LIE DOWN FOR 30 MINUTES AFTER. Facility-Administered Medications as of 05/24/2023 - perflutren lipid microspheres 1.3 mL in NaCl (PF) 0.9% 10 mL injection (DEFINITY) - sodium chloride 0.9 % (flush) 10 mL (BD POSIFLUSH) Encounter Status:Closed by SARIAH JOE on 05/24/23 [facility] 05-24-2023 History of Present illness Narrative Radiology Service Progress Note PATIENT NAME: Gus Del Cid DATE OF SERVICE: May 24, 2023 TIME: 2:32 PM PATIENT IDENTITY VERIFICATION COMPLETED USING TWO (2) IDENTIFIERS: Name and Date of confirmed by patient verbally. FALL SCREENING: Has the patient had 2 falls in the last year or 1 fall with injury or currently using an Ambulatory Assistive Device (Walker, Cane, Wheelchair, Crutches, etc.)? No PATIENT GENDER DATA: Male PATIENT RELEVANT IMPLANT DATA REVIEWED: Not Applicable RADIOLOGY DEPARTMENT: General X-ray: Exam(s) Completed: Chest X-Ray PERIPHERAL IV DATA: Not applicable SIGNED BY: RT Richi(R) May 24, 2023 2:32 PM documented in this encounter [facility] 05-24-2023 Note HNO ID: [id number] Author: Filippo Zarate MD Service: ? Author Type: Physician Type: Progress Notes Filed: 05/24/2023 5:51 PM Note Text: [facility] Department of Cardiovascular Medicine SECTION OF CARDIAC PACING and ELECTROPHYSIOLOGY OUTPATIENT VISIT DATE May 24, 2023 OUTPATIENT VISIT TYPE NEW PRIMARY CARE PHYSICIAN: No PCP REFERRING PHYSICIAN: EZEQUIEL GILLILAND [address] [place] [id number] CHIEF COMPLAINT: Lead extraction and CHECK VIEWER-D implant HISTORY OF PRESENT ILLNESS: Mr. Del Cid is a 77 year old male who presents today for evaluation for lead extraction and CHECK VIEWER-D upgrade. NURSING INTAKE HISTORY: Gus Del Cid is a 77 y/o male who presents for evaluation for lead extraction and CHECK VIEWER-D upgrade. He has a history of CAD, s/p CABG x 3 and OSVALDO closure (06/2020), s/p PCI with 3 stents (10/17/2020) and PCI with 2 stents (11/12/2020), atrial fibrillation, ICM, dual chamber PPM (2002, with generator change 2013), aortic aneurysm, PAD, s/p left femoropopliteal bypass, HTN, HLD, and DM. He was found to have EF=34% on Cardiac MRI 03/2023. He underwent unsuccessful CHECK VIEWER-D upgrade 05/13/2023 due to brachiocphalic vein stenosis and scarring. Noted to have significant scar in the SVC-RA junction and scar in the intersection of left brachiocephalic and right IJV. His device has trigger LEOBARDO but has not yet reached EOL. He reports he had discomfort at his device site from incisional pain. He endorses shortness of breath with exertion. He states he can have chest pain on exertion if he over exerts. He endorses lightheadedness with bends over. He recent palpitations. He denies syncope. CHADS2-Vasc Score Breakdown 5 Total Score 2 Age >= 75 years old 1 History of hypertension 1 History of diabetes mellitus 1 History of vascular disease PAST MEDICAL HISTORY Diagnosis Date Aortic aneurysm (HCC) Atrial fibrillation (HCC) CAD (coronary artery disease) Diabetes mellitus (HCC) HLD (hyperlipidemia) HTN (hypertension) Ischemic cardiomyopathy PAD (peripheral artery disease) (HCC) PAST SURGICAL HISTORY Procedure Laterality Date PAST SURGICAL HISTORY OF CABG PAST SURGICAL HISTORY OF PCI PAST SURGICAL HISTORY OF PPM SOCIAL HISTORY Social History Tobacco Use Smoking status: Former Packs/day: 1.00 Years: 30.00 Total pack years: 30.00 Types: Cigarettes Smokeless tobacco: Never Tobacco comments: Quit in the Substance Use Topics Alcohol use: Not Currently Drug use: Never FAMILY HISTORY Problem Relation Age of Onset Heart disease Mother Heart Failure Father ALLERGIES: ALLERGIES Allergen Reactions Morphine Unknown Dextroamphetamine Unknown Atorvastatin Other: See Comments, Unknown Other Reaction(s): Pain MEDICATIONS: amLODIPine (NORVASC) 5 mg tablet Take 5 mg by mouth every morning. clopidogrel (PLAVIX) 75 mg tablet Take 75 mg by mouth every morning. JARDIANCE 10 mg tablet metoprolol succinate ER (TOPROL XL) 100 mg Take 100 mg by mouth twice daily. omeprazole (PRILOSEC) 40 mg capsule Take 1 capsule by mouth once daily. rosuvastatin (CRESTOR) 5 mg tablet Take 5 mg by mouth daily at bedtime. sacubitril-valsartan (ENTRESTO) 97-103 mg tablet Take 1 tablet twice a day by oral route for 90 days. spironolactone (ALDACTONE) 25 mg tablet Take 25 mg by mouth every morning. warfarin (COUMADIN) 3 mg tablet TAKE 1 TO 1 AND 1/2 (ONE TO ONE AND ONE-HALF) TABLETS BY MOUTH ONCE DAILY DIRECTED doxycycline monohydrate (MONODOX) 100 mg capsule TAKE 1 CAPSULE BY MOUTH TWICE DAILY FOR 14 DAYS (MORNING AND BEDTIME). TAKE WITH AT LEAST 8OZ OF WATER. DO NOT LIE DOWN FOR 30 MINUTES AFTER. REVIEW OF SYSTEMS: General, constitutional: Weight loss or gain- No, Fever or chills-No, Weakness-yes, Trouble sleeping-No. Head, Eyes, Ears, Mouth: Headache, head injury-No, Glasses or contact lenses-yes, Pain-No, Impaired vision-No, Decreased hearing-yes, Ringing in ears-No, Nose bleeds-No, Dental difficulties-No, Bleeding gums-No, Dentures-yes. Neck: Swelling-No, Pain-No, Stiffness-No. Respiratory: Cough-No, Spitting up blood-No, Shortness of breath-yes, Wheezing or asthma-No. Musculoskeletal: Muscle or joint pain or stiffness-No, Joint swelling-No. Gastrointestinal: Difficulty swallowing-yes, Heartburn-No, Change in bowel habits-No, Blood in stool, Dark black stools-No. Neurological/Psychiatric: Weakness, paralysis-No, Numbness-No, Tingling-No, Tremor-No, Nervousness or anxiety-No, Depressed mood-No, Memory loss-yes. Skin: Rash-No, Itching-No. Hematological: Easy bruising-No, Easy bleeding-No. Endocrine: Heat or cold intolerance-No, Excessive sweating-No, Frequent urination-No, Frequent thirst-No. Stefanie Mar RN PHYSICAL EXAMINATION: BP 133/83 Pulse 84 Ht 180.3 cm (5' 11 ) Wt 87.1 kg (192 lb) BMI 26.78 kg/m? CARDIOVASCULAR MEDICINE TESTING: Outside Testing an (more content not included)... [facility] 05-24-2023 History of Present illness Narrative Images from the original note were not included. [facility] Department of Cardiovascular Medicine SECTION OF CARDIAC PACING and ELECTROPHYSIOLOGY OUTPATIENT VISIT DATE May 24, 2023 OUTPATIENT VISIT TYPE NEW PRIMARY CARE PHYSICIAN: No PCP REFERRING PHYSICIAN: EZEQUIEL GILLILAND [address] [place] [id number] CHIEF COMPLAINT: Lead extraction and CHECK VIEWER-D implant HISTORY OF PRESENT ILLNESS: Mr. Del Cid is a 77 year old male who presents today for evaluation for lead extraction and CHECK VIEWER-D upgrade. NURSING INTAKE HISTORY: Gus Del Cid is a 77 y/o male who presents for evaluation for lead extraction and CHECK VIEWER-D upgrade. He has a history of CAD, s/p CABG x 3 and OSVALDO closure (06/2020), s/p PCI with 3 stents (10/17/2020) and PCI with 2 stents (11/12/2020), atrial fibrillation, ICM, dual chamber PPM (2002, with generator change 2013), aortic aneurysm, PAD, s/p left femoropopliteal bypass, HTN, HLD, and DM. He was found to have EF=34% on Cardiac MRI 03/2023. He underwent unsuccessful CHECK VIEWER-D upgrade 05/13/2023 due to brachiocphalic vein stenosis and scarring. Noted to have significant scar in the SVC-RA junction and scar in the intersection of left brachiocephalic and right IJV. His device has trigger LEOBARDO but has not yet reached EOL. He reports he had discomfort at his device site from incisional pain. He endorses shortness of breath with exertion. He states he can have chest pain on exertion if he over exerts. He endorses lightheadedness with bends over. He recent palpitations. He denies syncope. CHADS2-Vasc Score Breakdown 5 Total Score 2 Age >= 75 years old 1 History of hypertension 1 History of diabetes mellitus 1 History of vascular disease PAST MEDICAL HISTORY Diagnosis Date Aortic aneurysm (HCC) Atrial fibrillation (HCC) CAD (coronary artery disease) Diabetes mellitus (HCC) HLD (hyperlipidemia) HTN (hypertension) Ischemic cardiomyopathy PAD (peripheral artery disease) (HCC) PAST SURGICAL HISTORY Procedure Laterality Date PAST SURGICAL HISTORY OF CABG PAST SURGICAL HISTORY OF PCI PAST SURGICAL HISTORY OF PPM SOCIAL HISTORY Social History Tobacco Use Smoking status: Former Packs/day: 1.00 Years: 30.00 Total pack years: 30.00 Types: Cigarettes Smokeless tobacco: Never Tobacco comments: Quit in the Substance Use Topics Alcohol use: Not Currently Drug use: Never FAMILY HISTORY Problem Relation Age of Onset Heart disease Mother Heart Failure Father ALLERGIES: ALLERGIES Allergen Reactions Morphine Unknown Dextroamphetamine Unknown Atorvastatin Other: See Comments, Unknown Other Reaction(s): Pain MEDICATIONS: amLODIPine (NORVASC) 5 mg tablet Take 5 mg by mouth every morning. clopidogrel (PLAVIX) 75 mg tablet Take 75 mg by mouth every morning. JARDIANCE 10 mg tablet metoprolol succinate ER (TOPROL XL) 100 mg Take 100 mg by mouth twice daily. omeprazole (PRILOSEC) 40 mg capsule Take 1 capsule by mouth once daily. rosuvastatin (CRESTOR) 5 mg tablet Take 5 mg by mouth daily at bedtime. sacubitril-valsartan (ENTRESTO) 97-103 mg tablet Take 1 tablet twice a day by oral route for 90 days. spironolactone (ALDACTONE) 25 mg tablet Take 25 mg by mouth every morning. warfarin (COUMADIN) 3 mg tablet TAKE 1 TO 1 & 1/2 (ONE TO ONE & ONE-HALF) TABLETS BY MOUTH ONCE DAILY DIRECTED doxycycline monohydrate (MONODOX) 100 mg capsule TAKE 1 CAPSULE BY MOUTH TWICE DAILY FOR 14 DAYS (MORNING AND BEDTIME). TAKE WITH AT LEAST 8OZ OF WATER. DO NOT LIE DOWN FOR 30 MINUTES AFTER. REVIEW OF SYSTEMS: General, constitutional: Weight loss or gain- No, Fever or chills-No, Weakness-yes, Trouble sleeping-No. Head, Eyes, Ears, Mouth: Headache, head injury-No, Glasses or contact lenses-yes, Pain-No, Impaired vision-No, Decreased hearing-yes, Ringing in ears-No, Nose bleeds-No, Dental difficulties-No, Bleeding gums-No, Dentures-yes. Neck: Swelling-No, Pain-No, Stiffness-No. Respiratory: Cough-No, Spitting up blood-No, Shortness of breath-yes, Wheezing or asthma-No. Musculoskeletal: Muscle or joint pain or stiffness-No, Joint swelling-No. Gastrointestinal: Difficulty swallowing-yes, Heartburn-No, Change in bowel habits-No, Blood in stool, Dark black stools-No. Neurological/Psychiatric: Weakness, paralysis-No, Numbness-No, Tingling-No, Tremor-No, Nervousness or anxiety-No, Depressed mood-No, Memory loss-yes. Skin: Rash-No, Itching-No. Hematological: Easy bruising-No, Easy bleeding-No. Endocrine: Heat or cold intolerance-No, Excessive sweating-No, Frequent urination-No, Frequent thirst-No. Stefanie Mar RN PHYSICAL EXAMINATION: BP 133/83 Pulse 84 Ht 180.3 cm (5' 11 ) Wt 87.1 kg (192 lb) BMI 26.78 kg/m CARDIOVASCULAR MEDICINE TESTING: Outside Testing and procedures Attempted CHECK VIEWER-D upgrade 05/13/2023 PROCEDURAL DETAILS: Patient was placed in supine position and I decided to proceed with opening of the pocket. Contrast venogram was performed which revealed flow via the axillary vein although there was no flow via the cephalic. Local infiltration of 1% Lidocaine was performed, and an incision was created in the left upper chest over the previous incision scar. Dissection was then performed using cautery down to the capsule of the previously implanted pacemaker device. Capsulotomy was performed and the old leads were freed from the capsule and the device was exteriorized. Once the lead was freed after dissection, unhealthy tissue was removed. In then proceeded to perform venous access using a 5F micropunture system. There was difficulty in threading the wire beyond the thoracic inlet. I then exchanged this for a glide wire and managed to traverse the wire into the RA. However when I tried to place a sheath, it would not go beyond the left brachicephalic and right IJV junction. I then performed contrast venography which revealed a tight stenosis at this location and noted dye hanging in the scar tissue into the SVC-RA junction. Given the inability to pass the wire I felt the best course was to stop the procedure and recommended lead extraction and placement of new CHECK VIEWER-D system at [facility]. The leads were then attached to the old [employer] generator and the leads tug tested. Pocket hemostasis was ensured and it was then copiously and vigorously irrigated with antibiotic solution. The leads were wrapped under the device and the device was placed in the pocket and tacked to underlying muscle. The pocket was closed in layers: subcutaneous layer using 2-0 Vicryl and subcuticular using 3-0 Biosyn absorbable monofilament suture. Glue was applied and dressing was placed on top. Lead parameters were then rechecked through the device and unchanged. It was observed that the patient had had kaw normal QRS when heart rate was low suggestive of a wenkebach AV block. I have extended out AV delay to facilitate normal QRS. Cardiac MRI 04/06/2023 Normal LV size and moderately decreased systolic function (LVEF 34%) with thinning and akinesis of the basal to mid inferolateral wall and severe hypokinesis of the mid to apical inferior wall. There is ischemic LGE in both territories (RCA and LCX) with basal to mid RCA territory being viable and basal to mid LCX territory of non-viable. Elevated ECV is consistent with interstitial fibrosis. Normal RV size and moderately decreased systolic function. ECHO 08/26/22 EF of 29% with a moderately dilated left atrium and a mildly dilated right atrium 10/14/2020 shows EF of 30% with mild to moderate MR and mild to moderate TR. EP STAFF ADDENDUM: Consultation requested by Dr. Gilliland for an opinion regarding lead extraction and upgrade to a biventricular defibrillator and my final recommendations will be communicated back to the requesting physician by way of shared medical record OR letter via fax/US mail. I have reviewed the above information and examined the patient and confirm the above with the following additions/modifications. HISTORY OF PRESENT ILLNESS: Mr. Manuel is a 77-year-old male with a history of coronary artery disease and possible ischemic cardiomyopathy who underwent a CABG in 2019 and subsequently had many stents who also has a dual-chamber pacemaker for many years for sinus node dysfunction. He got his initial pacemaker in 2002 and a subsequent device change in 2013 and the device is now currently at [facility] but is not end of service as per discussion with tech services. He is not dependent on the device but was evaluated prior to his device change and was found to have an ejection fraction of 34% with significant scar on his MRI and are also concerned about increased burden of pacing in the ventricle due to which the plan was to upgrade him from a dual-chamber pacemaker to a biventricular defibrillator. During the procedure he was found to have occlusion at the level of the brachiocephalic vein and the junction with the SVC and the procedure was abandoned and the old device was put back in place and he was sent here for an extraction and then potential upgrade of the device. Mr. Manuel does complain of class III symptoms of chest pain and shortness of breath but denies any presyncope or syncope. PHYSICAL EXAMINATION: GENERAL: Patient is alert, co-operative and oriented. No signs of acute distress. SKIN: Exam is unremarkable, no rashes/dermatitis HEENT: Unremarkable, Oral mucosa normal NECK: Neck supple, JVP not raised, No palpable thyromegaly. Carotids palpable bilaterally, No bruit. CHEST: Normal appearing. Lungs clear to auscultation. No crepitations or wheeze. HEART: Regular rate and rhythm. S1 normal S2 normal split. No S3/S4. No murmur. No rub. ABDOMEN: Soft, no obvious swelling/mass. No palpable organomegaly. Bowel sounds normal. PERIPHERAL VASCULAR/EXTREMITIES: Peripheral pulses palpable, No varicose veins or venous insufficiency. No pedal edema. MUSCULOSKELETAL: Normal extremities without any weakness or limitation of range of motion. NEUROLOGIC: No focal neurological deficits. No meningeal signs. MENTAL STATUS: Normal. EKG shows atrial flutter with ventricular paced rhythm with a QRS of 172 ms Device check shows that underlying conduction appears to be reasonable and the patient has a ventricular rate of about 54 bpm but on walking around even a little bit he tends to have 2: 1 conduction with ventricular rates of about 100 bpm IMPRESSION: Mr. Manuel has sinus node dysfunction and a dual-chamber pacemaker which is now at LEOBARDO and requires replacement. He appears to have reasonable AV yara conduction but may have an element of ischemic cardiomyopathy and LV dysfunction. I talked to him about the potential for an upgrade to an ICD or a biventricular device but suggested that we evaluate his AV yara conduction and then make the final decision. At this point of time, what ever we see in terms of limited information available seems to suggest that the AV yara conduction is okay. PLAN: 1. Retrieve previous device checks to see burden of RV pacing but current interrogation shows a burden of about 13% 2. CBC, CMP, TSH, BMP 3. Evaluate for ischemia with pharmacological stress test 4. Echo to assess valves and LV function 5. Programmed device to DDI at 50 bpm for now or even 40 bpm and evaluate burden of pacing Filippo Zarate MD May 24, 2023 5:49 PM This note was generated using [employer] voice recognition system. Please excuse any typographical errors. documented in this encounter [facility] 05-20-2023 Miscellaneous Notes Referral and outside medical records scanned into shared [employer] drive. Patient scheduled to see Dr. Filippo Zarate on May 24, 2023. documented in this encounter [facility] 07-23-2022 Note PROCEDURE: XR HAND R T MIN 3V HISTORY: Pain in right hand since falling yesterday; posterior hand pain COMPARISON: None. FINDINGS: BONES:Mild degenerative changes involving the first carpal-metacarpal joint and the second digit distal interphalangeal joint. Possible nondisplaced spiral fracture of the fourth metacarpal. SOFT TISSUES:Mild dorsal soft tissue swelling. Atherosclerotic disease. EFFUSION:None visible. OTHER: Negative. IMPRESSION: 1. Nondisplaced fourth metacarpal fracture versus nutrient foramen artifact. Correlate for pain in this area. 2. Mild degenerative joint disease. Electronically authenticated by: RAJEEV NIETO Date: 2022-07-23 10:54 [facility] Evaluation note Diagnosis Biventricular congestive heart failure (HCC) Congestive heart failure, unspecified Atrial fibrillation with rapid ventricular response (HCC) Atrial fibrillation Type 2 diabetes mellitus without complication, without long-term current use of insulin (HCC) ST elevation (STEMI) myocardial infarction involving left anterior descending coronary artery (HCC) Acute myocardial infarction of other anterior wall, episode of care unspecified Stable angina pectoris (HCC) Ischemic cardiomyopathy Other specified forms of chronic ischemic heart disease [facility] Diagnosis Biventricular congestive heart failure (HCC) Congestive heart failure, unspecified Atrial fibrillation with rapid ventricular response (HCC) Atrial fibrillation Type 2 diabetes mellitus without complication, without long-term current use of insulin (HCC) [facility] Diagnosis Biventricular congestive heart failure (HCC) Congestive heart failure, unspecified Atrial fibrillation with rapid ventricular response (HCC) Atrial fibrillation Type 2 diabetes mellitus without complication, without long-term current use of insulin (HCC) Stable angina pectoris (HCC) [facility] Diagnosis Abdominal aortic aneurysm (AAA) without rupture, unspecified part ([facility])- Primary [facility] Diagnosis PAD (peripheral artery disease) ([facility]-H[facility])- Primary Unspecified peripheral vascular disease Infrarenal abdominal aortic aneurysm (AAA) without rupture ([facility]) Claudication ([facility]) Unspecified peripheral vascular disease [facility]* Diagnosis Infrarenal abdominal aortic aneurysm (AAA) without rupture ([facility]-H[facility])- Primary 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 ([facility]-HCC) Infrarenal abdominal aortic aneurysm (AAA) without rupture ([facility])- Primary 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 ([facility]) Urologic disorders- Primary Unspecified disorder of urethra and urinary tract Urinary tract infection with hematuria, site unspecified Gross hematuria Benign prostatic hyperplasia with weak urinary stream [facility]* Diagnosis Infrarenal abdominal aortic aneurysm (AAA) without rupture ([facility]-HCC)- Primary 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 (CMS-HCC) Infrarenal abdominal aortic aneurysm (AAA) without rupture (CMS-HCC)- Primary 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 (CMS-HCC) Urologic disorders- Primary Unspecified disorder of urethra and urinary tract Gross hematuria Benign prostatic hyperplasia with weak urinary stream Epididymal mass Other specified disorder of male genital organs [facility]* Diagnosis Infrarenal abdominal aortic aneurysm (AAA) without rupture (CMS-HCC)- Primary 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 (CMS-HCC) Infrarenal abdominal aortic aneurysm (AAA) without rupture (CMS-HCC)- Primary 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 (CMS-HCC) Gross hematuria- Primary Infrarenal abdominal aortic aneurysm (AAA) without rupture (CMS-HCC)- Primary 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 (CMS-HCC) Gross hematuria [facility]* Diagnosis Type 2 diabetes mellitus with stage 2 chronic kidney disease, without long-term current use of insulin (CMS/HCC)- Primary Coronary artery disease involving kaw coronary artery of kaw heart without angina pectoris (CMS/HCC) 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 Thrombocytopenia, unspecified (CMS/HCC) Thrombocytopenia, unspecified Emphysema, unspecified (CMS/HCC) Ruptured infrarenal abdominal aortic aneurysm (AAA) (CMS/HCC) Status post percutaneous abdominal aortic aneurysm (AAA) repair [facility] Infrarenal abdominal aortic aneurysm (AAA) without rupture (CMS-HCC)- Primary 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 (CMS-HCC) Infrarenal abdominal aortic aneurysm (AAA) without rupture (CMS-HCC)- Primary 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 (CMS-HCC) Infrarenal abdominal aortic aneurysm (AAA) without rupture (CMS-HCC)- Primary 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 (CMS-HCC) Urologic disorders- Primary Unspecified disorder of urethra and urinary tract Gross hematuria Epididymal mass Other specified disorder of male genital organs Benign prostatic hyperplasia with weak urinary stream documented [facility] encounter [facility]ructionsNot on filedocumented in this encounter [facility] filedocument[facility] in this [facility] filedocument[facility] in this [facility] on filedocumented in this encounter [facility] on filedocumented in this encounter [facility]Not on filedocumented in this encounter [facility]Not on filedocumented in this encounter [facility] SystemInstructionsNot on filedocumented in this encounter [facility] SystemReason for referral (narrative)* Outpatient Procedure (Routine) - Authorized Specialty Diagnoses / Procedures Referred By Adiel merrill Referred To Contact [facility] Diagnoses Biventricular congestive heart failure (HCC) Atrial fibrillation with rapid ventricular response (HCC) Type 2 diabetes mellitus without complication, without long-term current use of insulin (HCC) Ischemic cardiomyopathy Procedures ECHO ECHO TTHRC R-T 2D W/WOM-MODE COMPL SPEC&COLR D Filippo Zarate MD [address] [place] [address] [facility] [place] [address] [place] [address] Referral ID Status Reason Start Date Expiration Date Visits Requested Visits Authorized [id number] Authorized Auto-Generat ed Referral 05/24/2023 05/23/2024 1 1 * Diagnostic Procedure Only (Routine) - Authorized Specialty Diagnoses / Procedures Referred By Adiel merrill Referred To Contact [facility] Diagnoses Biventricular congestive heart failure (HCC) Atrial fibrillation with rapid ventricular response (HCC) Type 2 diabetes mellitus without complication, without long-term current use of insulin (HCC) Stable angina pectoris (HCC) Procedures NM CARDIAC PERF STRESS/PHARM MYOCARDIAL SPECT MULTIPLE STUDIES Filippo Zarate MD [address] [place] [address] [facility] [address] [place] [address] Referral ID Status Reason Start Date Expiration Date Visits Requested Visits Authorized [id number] Authorized Auto-Generat ed Referral 05/24/2023 06/22/2024 1 1 [facility] Diagnostic Procedure Only (Routine) - Closed Specialty Diagnoses / Procedures Referred By Adiel merrill Referred To Contact [facility] Diagnoses Biventricular congestive heart failure (HCC) Atrial fibrillation with rapid ventricular response (HCC) Type 2 diabetes mellitus without complication, without long-term current use of insulin (HCC) Stable angina pectoris (HCC) Procedures NM CARDIAC PERF STRESS/PHARM MYOCARDIAL SPECT MULTIPLE STUDIES Filippo Zarate MD [address] [place] [address] [facility] [address] [place] [address] Referral ID Status Reason Start Date Expiration Date V isits Requested Visits Authorized [id number] Closed Auto-Generate d Referral 05/24/2023 06/22/2024 1 1 [facility] Summary Purpose Family History No Family History Records FoundNo Family History Records FoundNo Family History Records FoundNo Family History Records FoundNo Family History Records FoundNo Family History Records FoundNo Family History Records FoundNo Family History Records FoundNo Family History Records FoundNo Family History Records FoundNo Family History Records Found Advance Directives No Advanced Directives Records Found Date Activated Date Inactivated Comments 05/05/2024 7:16 PM 05/06/2024 5:26 PM Date Activated Date Inactivated Comments 05/05/2024 2:34 PM 05/05/2024 5:45 PM Date Activated Date Inactivated Comments 05/05/2024 7:16 PM 05/06/2024 5:26 PM Date Activated Date Inactivated Comments 05/05/2024 2:34 PM 05/05/2024 5:45 PM Reason for Referral Specialty Diagnoses / Procedures Referred By Adiel merrill Referred To Contact Radiology Diagnoses Abdominal aortic aneurysm (AAA) without rupture, unspecified part ([facility]) Procedures CT angiogram abdomen and pelvis Laura Saldana MD [address], [address] [address] Referral ID Status Reason Start Date Expiration Date V isits Requested Visits Authorized [id number] Pending Review 11/25/2023 11/24/2024 1 1 Specialty Diagnoses / Procedures Referred By Adiel merrill Referred To Contact Radiology Diagnoses PAD (peripheral artery disease) (CMS-HCC) Infrarenal abdominal aortic aneurysm (AAA) without rupture (CMS-HCC) Claudication (CMS-HCC) Procedures CT angiogram abdomen and pelvis Laura Saldana MD [address], [address] [address] Referral ID Status Reason Start Date Expiration Date V isits Requested Visits Authorized [id number] Pending Review 12/12/2023 12/11/2024 1 1 Additional Source Comments (unrecognized sect ion and content) No Status Records FoundNo Status Records FoundNo Status Records FoundNo Status Records FoundNo Status Records FoundNo Status Records FoundNo Status Records FoundNo Status Records FoundNo Status Records FoundNo Status Records FoundNo Status Records Found INFORMATION SOURCE (unrecogn ized section and content) DATE CREATED AUTHOR 01/03/2019 [facility] DATE CREATED AUTHOR AUTHOR'S ORGANIZ ATION 11/04/2021 [facility] DATE CREATED AUTHOR AUTHOR'S ORGANIZ ATION 02/28/2023 [facility] DATE CREATED AUTHOR AUTHOR'S ORGANIZ ATION 04/25/2023 [facility] DATE CREATED AUTHOR AUTHOR'S ORGANIZ ATION 06/09/2023 [facility] DATE CREATED AUTHOR AUTHOR'S ORGANIZ ATION 05/12/2024 [facility] DATE CREATED AUTHOR AUTHOR'S ORGANIZ ATION 06/05/2024 [facility] DATE CREATED AUTHOR AUTHOR'S ORGANIZ ATION 07/08/2024 [facility] dical Specialists [facility] DATE CREATED AUTHOR AUTHOR'S ORGANIZ ATION 11/05/2024 [facility] DATE CREATED AUTHOR AUTHOR'S ORGANIZ ATION 11/28/2024 [facility] DATE CREATED AUTHOR AUTHOR'S ORGANIZ ATION 12/07/2024 [facility] Reason for Visit (unrecogniz ed section and content) Specialty Diagnoses / Procedures Referred By Contac t Referred To Contact Procedures PACEMAKER/ICD INTERROGATION Balaji Peter MD [address] [place] [address] Referral ID Status Reason Start Date Expiration Date V isits Requested Visits Authorized [id number] New Request 04/06/2023 04/30/2024 1 1 Referral ID Status Reason Start Date Expiration Date V isits Requested Visits Authorized [id number] New Request 04/06/2023 04/30/2024 1 1 Reason Comments Received Referral and Outside Medical Re cords Reason Comments Radio Main J1 Reason Comments Patient Update Reason Comments Results Reason Comments Received Outside Medical Records Reason Comments Radiology NM Specialty Diagnoses / Procedures Referred By Contac t Referred To Contact [facility]CULAR [facility] FUN[facility] IMAGING Diagnoses Biventricular congestive heart failure (HCC) Atrial fibrillation with rapid ventricular response (HCC) Type 2 diabetes mellitus without complication, without long-term current use of insulin (HCC) Stable angina pectoris (HCC) Procedures NM CARDIAC PERF STRESS/PHARM MYOCARDIAL SPECT MULTIPLE STUDIES Filippo Zarate MD [address] [place] [address] [facility] [address] [place] [address] Referral ID Status Reason Start Date Expiration Date V isits Requested Visits Authorized [id number] Closed Auto-Generate d Referral 05/24/2023 06/22/2024 1 1 Reason Comments Follow-up 6 month follow up wi th testing completed on 11/18/2023 in [place]. Reason Comments Urinary Tract Infection Blood in Urine Specialty Diagnoses / Procedures Referred By Contac t Referred To Contact Urology Diagnoses Urinary tract infection with hematuria, site unspecified QuachDanica asher M, DO [address] [place] [address] Phone: tel: fax: Moi Pineda Jr., MD [address] [place] [address] Phone: tel: fax: Referral ID Status Reason Start Date Expiration Date Visits Requested Visits Authorized [id number] Pending Review Specialty Services Required 4 08/31/2025 1 1 Reason Comments Follow-up Reason Comments CT f/u appt, per pt's Urologist doctor. Patient states renal arteries are narrowing Reason Comments Diabetes Hypertension Care Teams (unrecognized sec tion and content) Green Chain Operator Relationship Specialty Start Date End Date Obdulio Wan II, MD [address] [place] [address] PCP - General Internal Medicine 04/06/23 Green Chain Operator Relationship Specialty Start Date End Date Filippo Zarate MD [address] [place], [place] [address] Primary Staff Physician Cardiology 05/24/23 Green Chain Operator Relationship Specialty Start Date End Date Filippo Zarate MD [address] [place] [address] Primary Staff Physician Cardiology 05/24/23 Green Chain Operator Relationship Specialty Start Date End Date Filippo Zartae MD [address] [place] [address] Primary Staff Physician Cardiology 05/24/23 Green Chain Operator Relationship Specialty Start Date End Date Filippo Zarate MD [address] [place] [address] Primary Staff Physician Cardiology 05/24/23 Green Chain Operator Relationship Specialty Start Date End Date Filippo Zarate MD [address] [place] [address] Primary Staff Physician Cardiology 05/24/23 Green Chain Operator Relationship Specialty Start Date End Date Filippo Zarate MD [address] [place] [id number] Primary Staff Physician Cardiology 05/24/23 Green Chain Operator Relationship Specialty Start Date End Date Obdulio Wan MD [address] [place] [address] PCP - General Internal Medicine 09/08/18 Green Chain Operator Relationship Specialty Start Date End Date Obdulio Wan MD [address] [place] [address] PCP - General Internal Medicine 09/08/18 Green Chain Operator Relationship Specialty Start Date End Date Obdulio Wan MD [address] [place] [address] PCP - ACO Reach 04/08/23 Obdulio Wan MD [address] [place] [address] PCP - General Internal Medicine 03/23/23 Green Chain Operator Relationship Specialty Start Date End Date Obdulio Wan MD [address] [place] [address] PCP - General Internal Medicine 09/08/18 Green Chain Operator Relationship Specialty Start Date End Date Obdulio Wan MD [address] [place] [address] PCP - General Internal Medicine 09/08/18 Green Chain Operator Relationship Specialty Start Date End Date Obdulio Wan MD [address] [place] [address] PCP - General Internal Medicine 09/08/18 Green Chain Operator Relationship Specialty Start Date End Date Obdulio Wan MD [address] [place] [address] PCP - General Internal Medicine 09/08/18 Green Chain Operator Relationship Specialty Start Date End Date Obdulio Wan MD [address] [place] [address] PCP - General Internal Medicine 09/08/18 Green Chain Operator Relationship Specialty Start Date End Date Obdulio Wan MD [address] [place] [address] PCP - ACO Reach 04/08/23 Obdulio Wan MD [address] [place] [address] PCP - General Internal Medicine 03/23/23WednesdayMehreen LPN [address] [place] [address] Licensed Practical Nurse Family Medicine 05/15/24 Green Chain Operator Relationship Specialty Start Date End Date Obdulio Wan MD [address] [place] [address] PCP - ACO Reach 04/08/23 Obdulio Wan MD [address] [place] [address] PCP - General Internal Medicine 03/23/23WednesdayMehreen FOOD SUPERVISOR [address] [place] [address] Licensed Practical Nurse Family Medicine 05/15/24 Green Chain Operator Relationship Specialty Start Date End Date Obdulio Wan MD [address] [place] [address] PCP - General Internal Medicine 09/08/18 Source Comments (unrecognize d section and content) In the event this informatio n is protected by the Federal Confidentiality of Alcohol and Drug Abuse Patient Records regulations: The Federal rules restrict any use of the information to criminally investigate or prosecute any alcohol or drug abuse patient.[facility] the event this information is protected by the Federal Confidentiality of Alcohol and Drug Abuse Patient Records regulations: The Federal rules restrict any use of the information to criminally investigate or prosecute any alcohol or drug abuse patient.[facility] the event this information is protected by the Federal Confidentiality of Alcohol and Drug Abuse Patient Records regulations: The Federal rules restrict any use of the information to criminally investigate or prosecute any alcohol or drug abuse patient.[facility] the event this information is protected by the Federal Confidentiality of Alcohol and Drug Abuse Patient Records regulations: The Federal rules restrict any use of the information to criminally investigate or prosecute any alcohol or drug abuse patient.[facility] the event this information is protected by the Federal Confidentiality of Alcohol and Drug Abuse Patient Records regulations: The Federal rules restrict any use of the information to criminally investigate or prosecute any alcohol or drug abuse patient.[facility] the event this information is protected by the Federal Confidentiality of Alcohol and Drug Abuse Patient Records regulations: The Federal rules restrict any use of the information to criminally investigate or prosecute any alcohol or drug abuse patient.[facility] the event this information is protected by the Federal Confidentiality of Alcohol and Drug Abuse Patient Records regulations: The Federal rules restrict any use of the information to criminally investigate or prosecute any alcohol or drug abuse patient.[facility] the event this information is protected by the Federal Confidentiality of Alcohol and Drug Abuse Patient Records regulations: The Federal rules restrict any use of the information to criminally investigate or prosecute any alcohol or drug abuse patient.[facility] the event this information is protected by the Federal Confidentiality of Alcohol and Drug Abuse Patient Records regulations: The Federal rules restrict any use of the information to criminally investigate or prosecute any alcohol or drug abuse patient.[facility] FOR RECORDS PERTAINING TO PATIENTS WHO ARE OR HAVE BEEN ENROLLED IN A CHEMICAL DEPENDENCY/SUBSTANCEABUSE PROGRAM, SOME INFORMATION MAY BE OMITTED. This clinical summary was aggregated from multiple sources. Caution should be exercised in using it in the provision of clinical care. This summary normalizes information from multiple sources, and as a consequence, information in this document may materially change the coding, format and clinical context of patient data. In addition, data may be omitted in some cases. CLINICAL DECISIONS SHOULD BE BASED ON THE PRIMARY CLINICAL RECORDS. [facility]. provides no warranty or guarantee of the accuracy or completeness of information in this document.
[2024-12-20 12:35] LABS: Chol HDL Ratio 2.2; Cholesterol 120 mg/dL (<=200); HDL Cholesterol 54 mg/dL (40-60); Triglycerides 45 mg/dL (<=150)
== END 2024-12-20 11:52 | disposition home or self-care (01) ==
PROVIDERS: PCP Internal Medicine; Visit Provider Internal Medicine
DX: N18.2 Chronic kidney disease, stage 2 (mild) (principal); E11.22 Type 2 diabetes mellitus with diabetic chronic kidney disease
CPT/HCPCS: 36415; 80061

== ENCOUNTER 2025-04-03 12:25 | Outpatient (OUT) | payer MEDICARE, SELFPAY ==
--- NOTE | 2025-04-03 13:00 | CA_ITS ---
Patient Name: GUS DEL CID MR#: [id number] : 1945 Exam Date: 04/03/2025 Ordering Doctor: DR MIRI MONTERO M.D. ECHOCARDIOGRAM REPORT PROCEDURE: CA ECHO DOPPLER COMPLETE INDICATIONS: Heart failure with reduced ejection fraction, pacemaker, CABG COMPARISON: None. DESCRIPTION: COMPLETE ECHOCARDIOGRAM Real-time transthoracic echocardiography with 2D, M-mode, spectral and color flow Doppler performed. QUALITY: Technical quality was adequate. LEFT VENTRICLE: Normal chamber size. Normal left ventricular wall thickness. Systolic function is moderately reduced. LV EF: Moderately reduced left ventricular ejection fraction, (35-40%). DIASTOLIC: ATRIAL SEPTUM: Visually appears intact. LEFT ATRIUM: Severe dilatation. RIGHT ATRIUM: Moderate dilatation. RIGHT VENTRICLE: Mild dilatation. Systolic function is mildly reduced. Pacer wire present. TRICUSPID VALVE: Normal mobility and thickness. No stenosis with moderate regurgitation. Doppler studies reveal mildly (35-45) elevated right sided pressures. RVSP 37 mmHg MITRAL VALVE: Normal mobility and thickness. No evidence of mitral valve stenosis. Mild mitral annular calcification. Mild mitral regurgitation. AORTIC VALVE: Normal trileaflet appearance. Thickened aortic valve. Normal leaflet mobility. No evidence of aortic valve stenosis. Multifocal calcifications. Trivial aortic regurgitation. AORTIC ROOT: Normal diameter and appearance. Ascending aorta is normal in size. PULMONIC VALVE: Normal thickness and mobility. No stenosis. Mild regurgitation. PERICARDIUM: No evidence of pericardial effusion. IVC: Collapses with inspirations. IVC is dilated (2.2 cm) PLEURA: CONCLUSION: 1. The left ventricle is normal in size and exhibits moderately reduced systolic function. LVEF is estimated at 35 to 40%. 2. Mildly dilated right ventricle with mildly reduced systolic function. 3. Moderate to severe biatrial dilatation. 4. Mild mitral regurgitation. 5. Moderate tricuspid regurgitation. 6. Mildly elevated right-sided pressures. Adult Echocardiography Procedure Report Left Ventricle LVEDD (3.7 - 5.6 cm): 5.61 cm LVESD (2.2 - 4.0 cm): 4.66 cm LVIVS thickness (0.6 - 1.2 cm): 1.05 cm LVPW thickness (0.5 - 1.0 cm): 0.82 cm e': 0.10 m/s E - e': 8.64 LVOT Max Gradient: 1.01 mm[Hg] LVOT Area (cm2): 0.50 m/s Peak Velocity (LVOT): 0.50 m/s Mean Velocity (LVOT): 0.30 m/s LVOT Diameter 2.39 cm Left Atrium LA Volume Index (2D A2C): 58.16 ml/m2 Left Atrium Systolic Dimension: 5.29 cm Mitral Valve MV E to A Ratio: 2.96 Mitral Valve A-Wave Peak Velocity: 0.30 m/s Mitral Valve E-Wave Peak Velocity: 0.89 m/s Right Ventricle Aorta AO Root Diam: 3.77 cm Ascending Ao Diam: 3.12 cm Aortic Valve AoV Area (Peak Paxton): 2.42 cm2, 2.42 cm2 AoV Area (VTI): 2.60 cm2, 2.60 cm2 Peak Velocity(Antegrade Flow): 0.93 m/s Peak Gradient(Antegrade Flow): 3.48 mm[Hg] Mean Velocity(Antegrade Flow): 0.56 m/s Mean Gradient(Antegrade Flow): 1.48 mm[Hg] Velocity Time Integral: 16.98 cm Tricuspid Valve Peak Velocity (Regurgitant Flow): 2.40 m/s, 2.52 m/s, 2.55 m/s, 2.71 m/s Pulmonic Valve Mean Gradient: 1.17 mm[Hg] Mean Velocity: 0.49 m/s Peak Velocity: 0.81 m/s, 0.74 m/s Peak Gradient: 2.17 mm[Hg], 2.61 mm[Hg] Right Atrium Right Atrium Systolic Pressure: 79.23 ml, 79.23 ml Dictated by: Miri Montero M.D. on 04/03/2025 at 15:54 Approved by: Miri Montero M.D. on 04/03/2025 at 16:00
== END 2025-04-03 12:26 | disposition home or self-care (01) ==
LOC: CARD 12:25
PROVIDERS: PCP Internal Medicine; Visit Provider Internal Medicine Interventional Cardiology
DX: I50.22 Chronic systolic (congestive) heart failure (principal)
CPT/HCPCS: 93306; 93356